=== PATIENT | male | born 1935 | race Caucasian/White ===

== ENCOUNTER 2017-03-04 16:40 | Observation (INO) | payer MEDICARE ==
[2017-03-04 19:23] LABS: Hematocrit 23 % (42-52); Mean Corpuscular HGB Conc 31 g/dl (31-36); Mean Corpuscular Hemoglobin 23 pg (27-31); Mean Corpuscular Volume 75 fL (80-94); Mean Platelet Volume 8 um3 (7.4-10.4); Red Blood Count 3.01 10^6/ul (4.0-5.4); Red Cell Distribution Width 19 % (10.5-15); White Blood Count 8.5 10^3/ul (3.5-10.8)
[2017-03-04 19:24] LABS: Add Diff/Slide Review? Slide Review Added; Comments Flag Yes
[2017-03-04 19:35] LABS: Albumin 3.5 g/dL (3.2-5.2); BUN/Creatinine Ratio 22.8 (8-20); Calcium 8.7 mg/dL (8.6-10.3); EGFR African American 25.6 (>60); EGFR Non-African American 19.9 (>60); Globulin 3.9 g/dL (2-4); Potassium 3.4 mmol/L (3.5-5.0); Total Bilirubin 0.5 mg/dL (0.2-1.0); Total Protein 7.4 g/dL (6.4-8.9)
--- NOTE | 2017-03-04 21:02 | ED ---
Otto Pace Claudia, scribed for Bruce Dunham MD on 03/04/17 at 2050 . Complex/Multi-Sys Presentation - HPI Summary HPI Summary: 81 year old male presents to the ED after being referred after blood test taken this am. Pt and family state that the pt went this am around 10am for a routine blood test due to his recent placement on Warfarin. Pt states that the pt was originally on warfarin due to stroke but it caused him to suffer a bleed. Dr. Gambino then took the pt off of warfarin. However, Dr. Gambino stated that it was easier to put in back on with concerns for another CVA. Pt daughter notes that last week him hemoglobin levels were about 8.0 but today they were measured at 7.3. Pt notes that the pt has been having some weakness. The pt states he has been having some darker stool but attributed that to his iron supplement. Pt notes that he has been being monitored with routine blood tests at [facility]. - History Of Current Complaint Chief Complaint: EDGeneral Time Seen by Provider: 03/04/17 20:49 Hx Obtained From: Patient Onset/Duration: Sudden Onset Associated Signs And Symptoms: Positive: Weakness, Other - dark stool - Allergies/Home Medications Allergies/Adverse Reactions: Allergies Allergy/AdvReac Type Severity Reaction Status Date / Time No Known Allergies Allergy Verified 08/06/16 09:38 PMH/Surg Hx/FS Hx/Imm Hx Previously Healthy: Yes Endocrine/Hematology History: Reports: Hx Diabetes - DM II, Hx Anemia Denies: Hx Anticoagulant Therapy, Hx Blood Disorders, Hx Blood Transfusions, Hx Bone Marrow Disease, Hx Systemic Lupus Erythematosus, Hx Sickle Cell Disease , Hx Thyroid Disease, Hx Unexplained Bleeding, Other Endocrine/Hematological Disorders Cardiovascular History: Reports: Hx Hypertension Denies: Hx Aneurysm, Hx Angina, Hx Angioplasty, Hx Auto Implanted Cardiovert Defib, Hx Cardiac Arrest, Hx Cardiomegaly, Hx Congenital Heart Disease, Hx Congestive Heart Failure, Hx Coronary Artery Disease, Hx Deep Vein Thrombosis, Hx Embolism, Hx Hypercholesterolemia, Hx Hypotension, Hx Myocardial Infarction, Hx Pacemaker/ICD, Hx Peripheral Vascular Disease, Hx Rheumatic Fever, Hx Syncope , Hx Valvular Heart Disease, Other Cardiovascular Problems/Disorders Respiratory History: Denies: Hx Asthma GI History: Reports: Hx Gastroesophageal Reflux Disease, Hx Gastrointestinal Bleed - ULCER, Hx Ulcer - ULCER Denies: Hx Cirrhosis, Hx Crohn's Disease, Hx Diverticulosis, Hx Gall Bladder Disease, Hx Hiatal Hernia, Hx Irritable Bowel, Hx Jaundice, Hx Obstructive Bowel , Hx Ileostomy, Hx Pyloric Stenosis, Other GI Disorders History: Denies: Hx Renal Disease Musculoskeletal History: Reports: Hx Arthritis, Hx Back Problems, Other Musculoskeletal History - knee pain Denies: Hx Bursitis, Hx Congenital Bone Abnormalities, Hx Fibromyalgia, Hx Gout, Hx Orthopedic Injury, Hx Osteoporosis, Hx Scoliosis, Hx Tendonitis Sensory History: Reports: Hx Contacts or Glasses Denies: Hx Cataracts, Hx Eye Injury, Hx Eye Prosthesis, Hx Glaucoma, Hx Legally Blind, Hx Macular Degeneration, Hx Vision Problem, Hx Deafness, Hx Hearing Aid, Hx Hearing Problem, Other Sensory Impairments Opthamlomology History: Reports: Hx Contacts or Glasses Denies: Hx Cataracts, Hx Eye Injury, Hx Eye Prosthesis, Hx Glaucoma, Hx Legally Blind, Hx Macular Degeneration, Hx Vision Problem, Other Sensory Impairments Neurological History: Reports: Hx CVA - 08/02/2015, Other Neuro Impairments/ Disorders - recent onset weakness Denies: Hx Dementia, Hx Developmental Delay, Hx Headaches, Hx Migraine, Hx Nerve Disease, Hx Seizures, Hx Spinal Cord Injury, Hx Transient Ischemic Attacks (TIA) Psychiatric History: Denies: Hx Anxiety, Hx Attention Deficit Hyperactivity Disorder, Hx Eating Disorder, Hx Depression, Hx Panic Disorder, Hx Post Traumatic Stress Disorder, Hx Inpatient Treatment, Hx Community Mental Health Tx, Hx Schizophrenia, Hx Bipolar Disorder, Hx Suicide Attempt, Hx of Violent Episodes Against Others, Hx Substance Abuse, Other Psychiatric Issues/Disorders - Surgical History Surgery Procedure, Year, and Place: CATARACTS; knee, foot surgery during childhood Hx Anesthesia Reactions: No Infectious Disease History: Denies: Hx Hepatitis, Traveled Outside the [place] in Last 30 Days - Family History Known Family History: Positive: None Family History: R & n/C - Social History Occupation: Retired Lives: With Family Alcohol Use: None Substance Use Type: Reports: Other Substance Use Comment - Amount & Last Used: chewing tobacco Hx Tobacco Use: No Smoking Status (MU): Never Smoked Tobacco Review of Systems Constitutional: Negative Eyes: Negative ENT: Negative Cardiovascular: Negative Respiratory: Negative Positive: Other - dark stool Genitourinary: Negative Musculoskeletal: Negative Skin: Negative Positive: Weakness Psychological: Normal All Other Systems Reviewed And Are Negative: Yes Physical Exam Triage Information Reviewed: Yes Vital Signs On Initial Exam: Initial Vitals Temp Pulse Resp BP Pulse Ox 97.6 F 67 17 133/68 99 03/04/17 17:03 03/04/17 17:03 03/04/17 17:03 03/04/17 17:03 03/04/17 17:03 Vital Signs Reviewed: Yes Appearance: Positive: Well-Appearing, No Pain Distress Skin: Positive: Warm, Pale Head/Face: Positive: Normal Head/Face Inspection Eyes: Positive: CHRISTINA, Conjunctiva Clear ENT: Positive: Hearing grossly normal Neck: Positive: Supple Respiratory/Lung Sounds: Positive: Clear to Auscultation, Breath Sounds Present Cardiovascular: Positive: RRR Abdomen Description: Positive: Nontender, Soft Bowel Sounds: Positive: Present Musculoskeletal: Positive: Strength/ROM Intact Neurological: Positive: Sensory/Motor Intact, Alert, Oriented to Person Place, Time Diagnostics - Vital Signs Vital Signs Temp Pulse Resp BP Pulse Ox 03/04/17 17:03 97.6 F 67 17 133/68 99 - Laboratory Lab Results: Lab Results 03/04/17 03/04/17 03/04/17 Range/Units 17:17 17:17 17:17 WBC 8.5 (3.5-10.8) 10^3/ul RBC 3.01 L (4.0-5.4) 10^6/ul Hgb 7.0 L (14.0-18.0) g/dl Hct 23 L (42-52) % MCV 75 L (80-94) fL MCH 23 L (27-31) pg MCHC 31 (31-36) g/dl RDW 19 H (10.5-15) % Plt Count 241 (150-450) 10^3/ul MPV 8 (7.4-10.4) um3 Neut % (Auto) 82.5 (38-83) % Lymph % (Auto) 7.2 L (25-47) % Mathews % (Auto) 7.8 (1-9) % Eos % (Auto) 1.5 (0-6) % Baso % (Auto) 1.0 (0-2) % Absolute Neuts (auto) 7.0 (1.5-7.7) 10^3/ul Absolute Lymphs (auto) 0.6 L (1.0-4.8) 10^3/ul Absolute Monos (auto) 0.7 (0-0.8) 10^3/ul Absolute Eos (auto) 0.1 (0-0.6) 10^3/ul Absolute Basos (auto) 0.1 (0-0.2) 10^3/ul Absolute Nucleated RBC 0 10^3/ul Nucleated RBC % 0 INR (Anticoag Therapy) 1.65 H (0.89-1.11) Sodium 136 (133-145) mmol/L Potassium 3.4 L (3.5-5.0) mmol/L Chloride 95 L (101-111) mmol/L Carbon Dioxide 32 (22-32) mmol/L Anion Gap 9 (2-11) mmol/L BUN 69 H (6-24) mg/dL Creatinine 3.02 H (0.67-1.17) mg/dL Est GFR ( Amer) 25.6 (>60) Est GFR (Non-Af Amer) 19.9 (>60) BUN/Creatinine Ratio 22.8 H (8-20) Glucose 128 H (70-100) mg/dL Calcium 8.7 (8.6-10.3) mg/dL Total Bilirubin 0.50 (0.2-1.0) mg/dL AST 18 (13-39) U/L ALT 9 (7-52) U/L Alkaline Phosphatase 119 H (34-104) U/L Total Protein 7.4 (6.4-8.9) g/dL Albumin 3.5 (3.2-5.2) g/dL Globulin 3.9 (2-4) g/dL Albumin/Globulin Ratio 0.9 L (1-3) Result Diagrams: 03/04/17 17:17 03/04/17 17:17 Lab Statement: Any lab studies that have been ordered have been reviewed, and results considered in the medical decision making process. - EKG 2150 EKG Rhythm: Atrial Fibrillation - 69 beats/min EKG Interpretation: moderate ventricular response Re-Evaluation - Re-Evaluation 1 Re-Evaluation Time: 22:02 Comment: Discussed the lab work with the pt and family. Complex Multi-Symp Course/Dx Assessment/Plan: MDM: After EKG and blood work results displaying Hemoglobin of 7.0 pt will be [place] [facility] [place]. - Diagnoses Provider Diagnoses: Anemia - Physician Notifications Discussed Care Of Patient With: Discussed care of pt with Dr. Galloway - Dr. Galloway will admit [place] [facility] [id number] Time Discussed With Above Provider: 22:03 Instructed by Provider To: Admit As Inpatient Discharge - Discharge Plan Condition: Fair Disposition: ADMITTED TO [facility] documentation as recorded by the Otto walker Claudia accurately reflects the service I personally performed and the decisions made by me, Bruce Dunham MD.
[2017-03-05] MEDS: NS 0.9% 1000 ML* 1,000 ML IV SCH ×2 (06:41→19:10)
[2017-03-05] MEDS: Pantoprazole IV* 80 MG in NS 0.9% 250 ML* 250 ML IVPB SCH ×2 (06:41→17:45)
--- NOTE | 2017-03-05 07:51 | HP ---
CC: EMILY Ayon* HISTORY AND PHYSICAL: DATE OF ADMISSION: 03/05/17 PRIMARY CARE PROVIDER: EMILY Ayon CHIEF COMPLAINT: Weakness. HISTORY OF PRESENT ILLNESS: The patient is an 81-year-old gentleman who presents to the [facility] with a chief complaint of weakness. It started approximately 1 week ago. He denies any chest pain or shortness of breath. He denies any lightheadedness. His appetite has been good. He does note his bowel movements have been black, but he says he thought it was due to the iron he takes. He denies taking any aspirin. He denies taking any Advil, Motrin, or Aleve. Interestingly, he had a similar presentation last year, but apparently he had taken aspirin at that time, which was thought to be responsible for his GI bleed. In the ER, the patient was found to have an elevated BUN of 69 and hemoglobin of 7. PAST MEDICAL HISTORY: Significant for CVA, hypertension, atrial fibrillation, diabetes, carotid stenosis, and hyperlipidemia. PAST SURGICAL HISTORY: Significant for carotid endarterectomy that was complicated by postoperative hematoma, which required evacuation and a cataract extraction. MEDICATIONS: He does not know his current medications. They have to be obtained from his PCP or his . ALLERGIES: He has no known drug allergies. FAMILY HISTORY: Father with colon cancer. SOCIAL HISTORY: No tobacco, no alcohol or recreational drug use. He is . His is his healthcare proxy. REVIEW OF SYSTEMS: A 14-point review of systems is completed with the patient. All pertinent positives and negatives are in the history of present illness, otherwise it is negative. PHYSICAL EXAMINATION GENERAL: A pleasant gentleman lying in bed, in no acute distress. VITAL SIGNS: Blood pressure 116/51, pulse oxygenation 92% on 2 L, respiratory rate 16 breaths per minute, heart rate 48 beats per minute, temperature 97.2 degrees. HEENT: Normocephalic and atraumatic. Pupils are equal, round and reactive to light. He has got moist mucous membranes. NECK: Supple. No JVD, bruits, palpable thyroid or lymphadenopathy. CHEST: Clear to auscultation. CARDIOVASCULAR: S1, S2 appreciated. ABDOMEN: Positive bowel sounds in all 4 quadrants. Soft, nontender, and nondistended. EXTREMITIES: No cyanosis or clubbing. +2 peripheral pulses bilaterally. NEUROLOGIC: Alert and oriented x3. Moves all extremities. SKIN: No rashes or abnormalities. LABORATORY DATA: White count 8.5, hemoglobin 7.0, hematocrit 23, platelets 241. Sodium 136, potassium 3.4, chloride 95, CO2 32, BUN 69, creatinine 3.02, glucose is 128. INR 1.65. EKG shows atrial fibrillation with a rate of 69 beats per minute, low voltage, no acute ST-T wave changes. ASSESSMENT AND PLAN: 1. Gastrointestinal bleed, likely upper. We will transfuse 2 units of packed red blood cells. GI consult in the a.m. Please patient on Protonix drip. 2. Chronic kidney disease. He is approximately where he has been in the past. We will monitor closely. 3. Atrial fibrillation. His INR is somewhat elevated and he apparently is on Coumadin, but we will get the exact dosing from his PCP. Hold off on reversing now until we see how much he is actually bleeding. 4. History of cerebrovascular accident. Continue current medications when we get them, but again hold aspirin if he is taking that. 5. Hypertension. BP adequately controlled. Continue to monitor. Use medications as necessary. 6. Diabetes mellitus. Place him on fingersticks with sliding scale insulin. 7. DVT prophylaxis. SCDs. The patient is currently n.p.o. 8. The patient is a full code. TIME SPENT: Over 75 minutes were spent on this H and P, more than 40 minutes of which is spent in direct [id number] contact with the patient in evaluation , physical exam, counseling, and coordination of care. [id number]/[facility] #: [id number] JUDI
[2017-03-05 08:56] LABS: Hematocrit 26 % (42-52); Hemoglobin 8.2 g/dl (14.0-18.0)
[2017-03-05] MEDS ORDERED: Potassium Chlor TAB* 20 MEQ TAB.ER PO ONE (10:21)
--- NOTE | 2017-03-05 11:09 | PN ---
Subjective Date of Service: 03/05/17 Interval History: Pt is feeling well. He states he still feels slightly weak but he has not been up and walking. He denies any abdominal pain. No SOB. Objective Active Medications: Sodium Chloride (Ns 0.9% 1000 Ml*) 1,000 mls @ 100 mls/hr IV PER RATE [facility] Last Admin: 03/05/17 06:41 Dose: 100 mls/hr Pantoprazole Sodium 80 mg/ (Sodium Chloride) 250 mls @ 25 mls/hr IVPB Q10H [facility] Last Admin: 03/05/17 06:41 Dose: 25 mls/hr Vital Signs 03/05/17 03/05/17 03/05/17 05:00 05:24 05:25 Temperature 97.2 F Pulse Rate 48 43 50 Respiratory 15 10 16 Rate Blood Pressure 126/62 112/42 112/42 (mmHg) O2 Sat by Pulse 92 100 100 Oximetry 03/05/17 03/05/17 03/05/17 05:30 06:05 07:46 Temperature 97.3 F 97.4 F Pulse Rate 49 85 52 Respiratory 14 17 18 Rate Blood Pressure 125/55 93/60 122/68 (mmHg) O2 Sat by Pulse 100 96 92 Oximetry Oxygen Devices in Use Now: None Appearance: Elderly male sitting up in bed, NAD Eyes: No Scleral Icterus Ears/Nose/Mouth/Throat: Mucous Membranes Moist Respiratory: Symmetrical Chest Expansion and Respiratory Effort, Clear to Auscultation Cardiovascular: NL Sounds; No Murmurs; No JVD, RRR - afib on tele, - - trace LE edema Abdominal: NL Sounds; No Tenderness; No Distention Extremities: No Clubbing, Cyanosis Skin: No Rash or Ulcers, No Nodules or Sclerosis Neurological: Alert and Oriented x 3 Result Diagrams: 03/05/17 08:34 03/04/17 17:17 Additional Lab and Data: Lab Results 03/04/17 03/04/17 03/04/17 Range/Units 17:17 17:17 17:17 WBC 8.5 (3.5-10.8) 10^3/ul RBC 3.01 L (4.0-5.4) 10^6/ul Hgb 7.0 L (14.0-18.0) g/dl Hct 23 L (42-52) % MCV 75 L (80-94) fL MCH 23 L (27-31) pg MCHC 31 (31-36) g/dl RDW 19 H (10.5-15) % Plt Count 241 (150-450) 10^3/ul MPV 8 (7.4-10.4) um3 Neut % (Auto) 82.5 (38-83) % Lymph % (Auto) 7.2 L (25-47) % Harvey % (Auto) 7.8 (1-9) % Eos % (Auto) 1.5 (0-6) % Baso % (Auto) 1.0 (0-2) % Absolute Neuts (auto) 7.0 (1.5-7.7) 10^3/ul Absolute Lymphs (auto) 0.6 L (1.0-4.8) 10^3/ul Absolute Monos (auto) 0.7 (0-0.8) 10^3/ul Absolute Eos (auto) 0.1 (0-0.6) 10^3/ul Absolute Basos (auto) 0.1 (0-0.2) 10^3/ul Absolute Nucleated RBC 0 10^3/ul Nucleated RBC % 0 INR (Anticoag Therapy) 1.65 H (0.89-1.11) Sodium 136 (133-145) mmol/L Potassium 3.4 L (3.5-5.0) mmol/L Chloride 95 L (101-111) mmol/L Carbon Dioxide 32 (22-32) mmol/L Anion Gap 9 (2-11) mmol/L BUN 69 H (6-24) mg/dL Creatinine 3.02 H (0.67-1.17) mg/dL Est GFR ( Amer) 25.6 (>60) Est GFR (Non-Af Amer) 19.9 (>60) BUN/Creatinine Ratio 22.8 H (8-20) Glucose 128 H (70-100) mg/dL Calcium 8.7 (8.6-10.3) mg/dL Total Bilirubin 0.50 (0.2-1.0) mg/dL AST 18 (13-39) U/L ALT 9 (7-52) U/L Alkaline Phosphatase 119 H (34-104) U/L Total Protein 7.4 (6.4-8.9) g/dL Albumin 3.5 (3.2-5.2) g/dL Globulin 3.9 (2-4) g/dL Albumin/Globulin Ratio 0.9 L (1-3) Assess/Plan/Problems-Billing Mr Moctezuma is an 81 yo M who has a h/o afib on coumadin, past CVA, HTN, DM and HLD who presented to the ER with c/o weakness and was found to be anemic with a Hb of 7. - Patient Problems (1) Upper GI bleed Current Visit: Yes Status: Acute Code(s): K92.2 - GASTROINTESTINAL HEMORRHAGE, UNSPECIFIED SNOMED Code(s): 62402904 Comment: H/H improved with 2 units PRBC. I suspect the patient bled due to being back on coumadin. Continue protonix drip for now. Hold coumadin. GI consult requested. No BMs since being in the hospital. (2) Atrial fibrillation Current Visit: Yes Status: Acute Onset Date: 08/02/15 Code(s): I48.91 - UNSPECIFIED ATRIAL FIBRILLATION SNOMED Code(s): 23156706 Comment: HR is controlled. He has been restarted on coumadin over the last couple months. I suspect this is why he started bleeding. Obviously hold coumadin for now. (3) CKD (chronic kidney disease) stage 4, GFR 15-29 ml/min Current Visit: Yes Status: Acute Code(s): N18.4 - CHRONIC KIDNEY DISEASE, STAGE 4 (SEVERE) SNOMED Code(s): 071964085 Comment: Creatinine is slightly up from his baseline but not too far off. Continue to monitor. Holding lasix for now. (4) HTN (hypertension) Current Visit: Yes Status: Acute Code(s): I10 - ESSENTIAL (PRIMARY) HYPERTENSION SNOMED Code(s): 46521164 Comment: BP is under good control. Continue metoprolol but hold amlodipine for now. (5) Hyperlipidemia Current Visit: Yes Status: Chronic Code(s): E78.5 - HYPERLIPIDEMIA, UNSPECIFIED SNOMED Code(s): 33494694 Comment: Continue statin. (6) Diabetes Current Visit: Yes Status: Acute Code(s): E11.9 - TYPE 2 DIABETES MELLITUS WITHOUT COMPLICATIONS SNOMED Code(s): 45235587 Comment: He is diet controlled. Start lispro sliding scale. (7) DVT prophylaxis Current Visit: Yes Status: Acute Code(s): TCE4167 - SNOMED Code(s): 965827966 Comment: SCDs (8) Full code status Current Visit: Yes Status: Acute Code(s): Z78.9 - OTHER SPECIFIED HEALTH STATUS SNOMED Code(s): 253221852
[2017-03-05] MEDS ORDERED: Dextrose 50% Syringe 50 ML* 25 GM/50 ML SYRINGE IV PUSH PRN (11:16)
[2017-03-05] MEDS: Insulin LISPRO* 1 UNITS UNIT SUBCUT SCH ×2 (11:51→16:45)
[2017-03-05] MEDS ORDERED: Midazolam* 1 MG/ML 5 ML VIAL (5 MG) ONE (13:53)
[2017-03-05] MEDS ORDERED: fentaNYL* 50 MCG/ML 2 ML VIAL (100 MCG VIAL) ONE (13:53)
--- NOTE | 2017-03-05 14:08 | CONS ---
CC: EMILY Ayon. * CONSULTATION REPORT: DATE OF ADMISSION: 03/05/2017. REQUESTING PHYSICIAN: Dr. Klein. INDICATION: Dark and tarry stools, anemia. NARRATIVE: Mr. Moctezuma is a very pleasant 81-year-old gentleman who has a history of atrial fibrillation and upper gastrointestinal bleeding. I did interview both the patient, his , and their daughter, and they all say that he had been doing well up until when he restarted his Coumadin. His noted that since starting the Coumadin, he has become more more weak and fatigued. He did see his primary care physician and had a hemoglobin checked, which was low and they referred him to the emergency room. The patient also states he has been having very dark and tarry stools. They initially thought it was secondary to the iron that he has been taking. He states that this is similar to an episode that he had in July. At that time, he had an endoscopy, which revealed gastritis and duodenal AVMs. GI and Cardiology discussed restarting the Coumadin and felt that it was safer to restart the Coumadin to prevent any strokes. The patient denies any abdominal pain. He states that he is doing well other than being weak. PAST MEDICAL HISTORY: Significant for CVA, hypertension, AFib, diabetes, and hyperlipidemia. PAST SURGICAL HISTORY: Carotid endarterectomy and cataract surgery. MEDICATIONS: Include, 1. Lasix. 2. Amlodipine. 3. Zoloft. 4. Metoprolol. 5. Omeprazole. 6. Crestor. ALLERGIES: He has no known drug allergies. REVIEW OF SYSTEMS: Twelve systems were reviewed, other than that mentioned in the HPI were unremarkable. PHYSICAL EXAMINATION: Temperature is 97.4, blood pressure 125/64, pulse is 79. General: Well-appearing elderly male appears slightly older than stated age. Alert and oriented, pleasant and fluent. HEENT: Mucous membranes are moist without lesions, ulcers, or exudate. Head is normocephalic and atraumatic. Neck is supple, trachea is midline. Heart: Irregular rate and rhythm. Lungs: Clear to auscultation. Abdomen: Obese. Positive bowel sounds. Soft. Nontender. Nondistended. No hepatosplenomegaly, masses, rebound, or guarding. Skin is warm and dry. LABORATORY DATA: Hemoglobin went from 7 to 8.2, INR 1.65, BUN 69, creatinine 3.02. 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 He likely is experiencing another upper gastrointestinal bleed, likely it has been precipitated by his restarting the Coumadin. At this point, he does need an upper GI to confirm any new findings. His Coumadin is being held. He is being given IV Protonix. He has 2 large-bore IVs. I will plan for EGD later on today. [id number]/[facility] #: [id number] [facility]
[2017-03-05 16:10] LABS: Hematocrit 26 % (42-52); Hemoglobin 8.2 g/dl (14.0-18.0)
[2017-03-05 20:00] LABS: Hematocrit 28 % (42-52); Hemoglobin 8.7 g/dl (14.0-18.0)
[2017-03-05] MEDS: Metoprolol Tartrate TAB* 25 MG PO SCH (20:21)
[2017-03-05] MEDS ORDERED: CMC: Rosuvastatin (NF) 20 MG TAB PO SCH (21:00)
--- NOTE | 2017-03-06 00:54 | PRO ---
CC: Dr. Gambino; Flor Rondon, TEST CASE DEVELOPER-C* DATE OF PROCEDURE: 03/05/17 - ROOM #436 PROCEDURE: EGD. INDICATION: Anemia, history of gastric erosions and AVMs in the past. REFERRING PHYSICIAN: Arminda Klein DO. MEDICATIONS GIVEN: No Demerol, 5 mg IV Versed. DESCRIPTION OF PROCEDURE: After the EGD procedures including the risk benefits and alternatives not limited to perforation, surgery and/or were explained to Mr. Moctezuma, written consent was then obtained, IV medication was given, and a bite block was placed between the teeth. An Olympus gastroscope was then inserted into the patient's mouth and advanced down the esophagus, into the stomach, into the distal duodenum. In the esophagus, at the GE junction, the Z-line was intact. No erosive esophagitis, stricture, or ring was seen. Scope was advanced through a widely patent GE junction into the body of the stomach. Retroflex views were unremarkable. Forward views did reveal gastritis with one small erosion and small AVMs. None of these were bleeding at all. The scope was advanced through the pylorus into the duodenal bulb. It was unremarkable and the distal duodenum also was unremarkable. The scope was then withdrawn from the patient. He tolerated the procedure well, was returned to the recovery room in stable condition. IMPRESSION: 1. Complete upper endoscopy into the distal duodenum. 2. Pretty much the same findings as last July, which were gastritis and AVMs, none of which were bleeding. 3. I have to think that the Coumadin is causing these GI findings to bleed. He has been on a PPI. I think at this point, he would be better served by refraining from Coumadin. He needs to discuss this with his rehabilitation services director, who he has an appointment with in a couple of weeks from now according to his . [id number]/[facility] #: [id number] JUDI
[2017-03-06 02:22] LABS: Hematocrit 26 % (42-52); Hemoglobin 7.9 g/dl (14.0-18.0)
[2017-03-06 02:24] LABS: Comments Flag Yes
[2017-03-06] MEDS: Insulin LISPRO* 1 UNITS UNIT SUBCUT SCH ×2 (08:37→11:38)
[2017-03-06] MEDS: Metoprolol Tartrate TAB* 25 MG PO SCH (08:37)
[2017-03-06 08:57] LABS: Hematocrit 27 % (42-52); Hemoglobin 8.6 g/dl (14.0-18.0)
[2017-03-06] MEDS ORDERED: Sertraline* 50 MG TAB PO SCH (09:00)
[2017-03-06] MEDS ORDERED: Omeprazole CAP* 20 MG PO SCH (09:00)
[2017-03-06 11:38] VITALS: BP 129/73
--- NOTE | 2017-03-06 19:12 | DS ---
CC: EMILY Ayon * DISCHARGE SUMMARY: DATE OF ADMISSION: 03/05/17 DATE OF DISCHARGE: 03/06/17 PRIMARY CARE PROVIDER: EMILY Ayon PRINCIPAL DIAGNOSIS: Upper GI bleed secondary to gastritis and arteriovenous malformations in the setting of being on Coumadin. SECONDARY DIAGNOSES: 1. Diet controlled type 2 diabetes. 2. Hyperlipidemia. 3. Depression. 4. Atrial fibrillation. 5. Hypertension. DISCHARGE MEDICATIONS: 1. Zoloft 75 mg p.o. daily. 2. Crestor 40 mg p.o. q.h.s. 3. Psyllium 1 packet p.o. daily. 4. Potassium chloride 10 mEq p.o. daily. 5. Omeprazole 20 mg p.o. b.i.d. 6. Metoprolol tartrate 25 mg p.o. b.i.d. 7. Calmoseptine apply topical t.i.d. 8. Lasix 80 mg p.o. daily. 9. Ferrous sulfate 325 mg p.o. b.i.d. 10. Amlodipine 2.5 mg p.o. daily. HOSPITAL COURSE: Mr. Moctezuma is an 81-year-old male who presented to the emergency room on 03/04/17 with complaints of weakness. The patient did note that he had been having black stools but attributed this to iron. In the ER, the patient was found to have an elevated BUN and hemoglobin of 7, and was admitted for a presumed upper GI bleed. The patient was started on a Protonix drip. A GI consultation was requested for EGD. Dr. Garcia took the patient to the endoscopy suite on 03/05/17 for EGD. At the time of his EGD, gastritis and AVMs were noted. None of these were bleeding. It was felt that the Coumadin was likely the cause of the GI bleed. It was recommended that he be off Coumadin. The patient's states that she does not want him going back on this medication and they accept that he is at high risk for stroke given his atrial fibrillation. The patient did receive 2 units of packed red blood cells for his low hemoglobin. His hemoglobin is up to 8.6 on the day of discharge. At this point, the patient is feeling better. He has been able to ambulate his usual distance without any difficulty. He is felt to be stable for discharge home today. On the day of discharge, the patient is awake, alert and oriented, sitting up in bed, in no acute distress. His vital signs are stable. His cardiac exam reveals a normal S1 and S2, irregularly irregular rhythm, though a controlled rate. He has no lower extremity edema. His lung exam reveals clear lungs bilaterally. His abdomen is soft, nontender, nondistended. Bowel sounds are present. The patient was alert and oriented x3 at the time of my evaluation. At this point, the patient is stable for discharge home. FOLLOWUP CONCERNS: The patient is being discharged home today, 03/06/17. ACTIVITY LEVEL: As tolerated. DIET: Regular. CONDITION ON DISCHARGE: Stable. FOLLOWUP: The patient should follow up with EMILY Ayon in the next 4 to 7 days. TIME SPENT: Thirty five minutes was spent discharging this patient. [id number]/CPS #: [id number] MTDD
== END 2017-03-06 15:48 | disposition home or self-care (01) ==
LOC: ED 16:40 → INTOOBSV 03-05 04:42 → MEDTELE 03-05 04:42
PROVIDERS: ADMIT Internal Medicine; ATTEND Hospitalist
PROC: 0DJ08ZZ Inspection of Upper Intestinal Tract, Via Natural or Artificial Opening Endoscopic (ICD-10-PCS; principal; 2017-03-05)
DX: K92.2 Gastrointestinal hemorrhage, unspecified (principal); K29.70 Gastritis, unspecified, without bleeding; Q27.33 Arteriovenous malformation of digestive system vessel; E11.9 Type 2 diabetes mellitus without complications; I48.91 Unspecified atrial fibrillation; Z79.01 Long term (current) use of anticoagulants; E78.5 Hyperlipidemia, unspecified; I12.9 Hypertensive chronic kidney disease with stage 1 through stage 4 chronic kidney disease, or unspecified chronic kidney disease; N18.4 Chronic kidney disease, stage 4 (severe); D64.9 Anemia, unspecified; F32.9 Major depressive disorder, single episode, unspecified; Z79.899 Other long term (current) drug therapy; Z86.73 Personal history of transient ischemic attack (TIA), and cerebral infarction without residual deficits; I45.81 Long QT syndrome; R19.5 Other fecal abnormalities
CPT/HCPCS: 36415; 80053; 82270; 85014; 85018; 85025; 85610; 86850; 86900; 86901; 86922; 93005; 96374; 99285; A9270-GY; G0378; J2250; J3010; P9040

== ENCOUNTER 2017-05-27 16:24 | Inpatient (IN) | payer MEDICARE ==
[2017-05-27 17:23] LABS: Hematocrit 23 % (42-52); Hemoglobin 7.4 g/dl (14.0-18.0); Mean Corpuscular HGB Conc 32 g/dl (31-36); Mean Corpuscular Hemoglobin 25 pg (27-31); Mean Corpuscular Volume 76 fL (80-94); Mean Platelet Volume 7 um3 (7.4-10.4); Red Blood Count 3.01 10^6/ul (4.0-5.4); Red Cell Distribution Width 20 % (10.5-15); White Blood Count 8.9 10^3/ul (3.5-10.8)
[2017-05-27 17:37] LABS: Albumin 3.4 g/dL (3.2-5.2); BUN/Creatinine Ratio 17.7 (8-20); C Reactive Protein 43.66 mg/L (< 5.00); Calcium 8.6 mg/dL (8.6-10.3); EGFR African American 27.1 (>60); EGFR Non-African American 21.1 (>60); Globulin 4.1 g/dL (2-4); Magnesium 2.3 mg/dL (1.9-2.7); Potassium 3.8 mmol/L (3.5-5.0); Total Bilirubin 0.6 mg/dL (0.2-1.0); Total Protein 7.5 g/dL (6.4-8.9)
[2017-05-27 18:51] LABS: Ferritin 75.3 ng/mL (24-336)
--- NOTE | 2017-05-27 19:05 | ADMNOTE ---
Subjective Date of Service: 05/27/17 Interval History: ADMISSION HISTORY AND PHYSICAL EXAM: Allergies Allergy/AdvReac Type Severity Reaction Status Date / Time No Known Allergies Allergy Verified 08/06/16 09:38 Home Medications Medication Instructions Recorded Confirmed Type Ferrous Sulfate [Fe Tabs] 325 mg PO BID 03/05/17 05/27/17 History Furosemide TAB* [Lasix TAB*] 80 mg PO DAILY 03/05/17 05/27/17 History Metoprolol Tartrate TAB* 25 mg PO BID 03/05/17 05/27/17 History [Lopressor TAB*] Omeprazole CAP* [Prilosec CAP* 20 20 mg PO BID 03/05/17 05/27/17 History MG] Potassium Chlor TAB* [Klor Con ER 10 meq PO DAILY 03/05/17 05/27/17 History TAB 10 MEQ*] Psyllium OPAL* [Metamucil OPAL*] 1 pkt PO DAILY 03/05/17 05/27/17 History Menthol-Zinc Oxide [Calmoseptine] 1 oin TOPICAL BID 05/27/17 05/27/17 History Rosuvastatin (NF) [Crestor (NF)] 40 mg PO BEDTIME 05/27/17 05/27/17 History Sertraline* [Zoloft*] 75 mg PO DAILY 05/27/17 05/27/17 History amLODIPine TAB* [Norvasc 5 mg TAB*] 2.5 mg PO DAILY 05/27/17 05/27/17 History HPI: (History mainly obtained from patient's ) Patient weighs himself daily. He has gained 16 pounds in the past 2 weeks. He has more STANLEY. He sleeps every night in a recliner chair with his head partly up. No chest pain, cough, F/C. Family History: Findings - Father had colon ca Social History: Findings - Never smoked. No alcohol abuse. Lives with his who is his SDM. Past Medical History: Findings - CVA, atrial fib, CEA, cataract surgery, HL, HTN , DM on diet only Review of Systems - Measurements Intake and Output: Intake and Output Last 24 Hours 05/25/17 05/26/17 05/27/17 05/28/17 06:59 06:59 06:59 06:59 Weight 217 lb - Review of Systems Constitutional Symptoms: Positive: Weight Gain Dermatology: Positive: Rash - uses heating device on shoulders every day HEENT: Positive: Normal Eyes: Positive: Normal Thyroid: Positive: Normal Pulmonary: Positive: Exercise Intolerance Cardiology: Positive: Swelling of Ankles Gastroenterology: Positive: Normal Genital - Urinary: Positive: Normal Musculoskeletal: Negative: Joint Pain, Joint Stiffness, Arthritis, Osteoporosis, Low Back Pain , Sciatica, Joint Deformities, Kyphoscoliosis, Other Endocrinology: Positive: Diabetes Mellitus Hematologic/Lymphatic: Positive: Anemia Neurology: Positive: Normal Psychiatry: Positive: Normal Allergic/Immunologic: Negative: Hx Anaphylaxis, Hx Angioedema, Hx Environmental, Hx Seasonal, Athsma, Hx HIV, Immunocompromise, Swollen Glands LymphNodes, Other Objective Active Medications: Amlodipine Besylate (Norvasc Tab*) 2.5 mg PO DAILY JESENIA Furosemide (Lasix Iv*) 40 mg IV Q4H JESENIA Stop: 05/28/17 01:00 Metoprolol Tartrate (Lopressor Tab*) 25 mg PO BID JESENIA Non-Formulary Medication (Ferrous Sulfate [Fe Tabs]) 325 mg PO BID JESENIA Omeprazole (Prilosec Cap*) 20 mg PO BID JESENIA Potassium Chloride (Klor Con Er Tab*) 10 meq PO BID JESENIA Psyllium Hydrophilic Mucilloid (Metamucil Opal*) 1 pkt PO DAILY JESENIA Rosuvastatin Calcium (Crestor (Nf)) 40 mg PO BEDTIME JESENIA Sertraline HCl (Zoloft*) 75 mg PO DAILY JESENIA Torsemide (Demadex*) 80 mg PO DAILY [facility] Vital Signs 05/27/17 05/27/17 05/27/17 16:27 16:48 16:50 Temperature 97.4 F Pulse Rate 71 Respiratory 20 17 Rate Blood Pressure 143/128 137/70 (mmHg) O2 Sat by Pulse 97 Oximetry 05/27/17 05/27/17 05/27/17 16:56 17:00 17:07 Temperature 97.8 F Pulse Rate 75 64 63 Respiratory 18 17 18 Rate Blood Pressure 121/70 122/64 122/64 (mmHg) O2 Sat by Pulse 98 97 94 Oximetry 05/27/17 05/27/17 05/27/17 17:30 18:00 18:30 Temperature Pulse Rate 66 61 Respiratory 19 16 18 Rate Blood Pressure 129/68 131/72 150/83 (mmHg) O2 Sat by Pulse 95 95 Oximetry Oxygen Devices in Use Now: None Appearance: Alert, partly up on ED stretcher. In good spirits. Looks comfortable. Eyes: No Scleral Icterus Ears/Nose/Mouth/Throat: Clear Oropharnyx - edentulous, Mucous Membranes Moist Neck: No Thyroid Enlargement, Masses, - - JVD at 30 degrees. Cardiovascular: NL Sounds; No Murmurs; No JVD, RRR, - - 1+ edema BL Abdominal: NL Sounds; No Tenderness; No Distention, No Hepatosplenomegaly, - Extremities: No Clubbing, Cyanosis, - - 1+ edema BL Neurological: Alert and Oriented x 3, NL Sensation Result Diagrams: 05/27/17 17:12 05/27/17 17:12 Additional Lab and Data: Lab Results 05/27/17 05/27/17 05/27/17 Range/Units 17:12 17:12 17:12 WBC 8.9 (3.5-10.8) 10^3/ul RBC 3.01 L (4.0-5.4) 10^6/ul Hgb 7.4 L (14.0-18.0) g/dl Hct 23 L (42-52) % MCV 76 L (80-94) fL MCH 25 L (27-31) pg MCHC 32 (31-36) g/dl RDW 20 H (10.5-15) % Plt Count 250 (150-450) 10^3/ul MPV 7 L (7.4-10.4) um3 Neut % (Auto) 85.2 H (38-83) % Lymph % (Auto) 4.9 L (25-47) % [place] % (Auto) 7.4 (1-9) % Eos % (Auto) 1.3 (0-6) % Baso % (Auto) 1.2 (0-2) % Absolute Neuts (auto) 7.6 (1.5-7.7) 10^3/ul Absolute Lymphs (auto) 0.4 L (1.0-4.8) 10^3/ul Absolute Monos (auto) 0.7 (0-0.8) 10^3/ul Absolute Eos (auto) 0.1 (0-0.6) 10^3/ul Absolute Basos (auto) 0.1 (0-0.2) 10^3/ul Absolute Nucleated RBC 0 10^3/ul Nucleated RBC % 0 INR (Anticoag Therapy) 1.25 H (0.89-1.11) APTT 30.1 (26.0-36.3) seconds Blood Type O Positive Antibody Screen Pending Microbiology and Other Data: Microbiology 05/27/17 17:30 Stool Occult Blood (EVANS) - Final Stool Assess/Plan/Problems-Billing Assessment: - Patient Problems (1) Anemia Current Visit: No Status: Acute Priority: High Code(s): D64.9 - ANEMIA, UNSPECIFIED SNOMED Code(s): 556604036 Comment: Never had definitive ID of GI bleeding source. Continue PO iron. Add on ferritin, FE/TIBC. 2 U PC's. (2) CHF (congestive heart failure) Current Visit: Yes Status: Acute Code(s): I50.9 - HEART FAILURE, UNSPECIFIED SNOMED Code(s): 82671913 Comment: Change to torsemide 80 mg daily (was on furosemide 40 mg bid at home ). Body Liner to instruct pt and on low salt diet. Echo. Addon BNP pending. needs more education on managing CHF. (3) Diabetes Current Visit: No Status: Acute Code(s): E11.9 - TYPE 2 DIABETES MELLITUS WITHOUT COMPLICATIONS SNOMED Code(s): 46393589 Comment: He is diet controlled. FS bid with parameters. (4) CKD (chronic kidney disease) stage 4, GFR 15-29 ml/min Current Visit: No Status: Acute Code(s): N18.4 - CHRONIC KIDNEY DISEASE, STAGE 4 (SEVERE) SNOMED Code(s): 826773878 Comment: At his baseline. Note PVR 0-20 ml by bladder scan. BMP 05/28. (5) HTN (hypertension) Current Visit: No Status: Acute Code(s): I10 - ESSENTIAL (PRIMARY) HYPERTENSION SNOMED Code(s): 77587834 Comment: Continue home doses of metoprolol and amlodipine.
--- NOTE | 2017-05-27 20:06 | ED ---
Joselo Pace Benjamin, scribed for Jaden Irvin MD on 05/27/17 at 1740 . GI/ HPI - HPI Summary HPI Summary: 81yo male who was sent by his PCP for a blood transfusion. Pt sees Dr. Bill and his two scopy showed ulcer. Pt was told that he is not making blood himself , therefore is unable to replace any lost blood on his own. Pt is on Lasix. - History of Current Complaint Chief Complaint: EDGeneral Time Seen by Provider: 05/27/17 17:21 Stated Complaint: ABNORMAL LABS Hx Obtained From: Patient, Family/Intervention Analyst Timing: Constant Current Severity: None Pain Intensity: 0 Associated Signs and Symptoms: Positive: Negative. Negative: Black Tarry Stool , Bright Red Blood w/Stool, Blood w/Stool - Additional Pertinent History Primary Care Physician: JOSH - Allergy/Home Medications Allergies/Adverse Reactions: Allergies Allergy/AdvReac Type Severity Reaction Status Date / Time No Known Allergies Allergy Verified 08/06/16 09:38 PMH/Surg Hx/FS Hx/Imm Hx Endocrine/Hematology History: Reports: Hx Diabetes - DM II, Hx Anemia Denies: Hx Anticoagulant Therapy, Hx Blood Disorders, Hx Blood Transfusions, Hx Bone Marrow Disease, Hx Systemic Lupus Erythematosus, Hx Sickle Cell Disease , Hx Thyroid Disease, Hx Unexplained Bleeding, Other Endocrine/Hematological Disorders Cardiovascular History: Reports: Hx Hypertension Denies: Hx Aneurysm, Hx Angina, Hx Angioplasty, Hx Auto Implanted Cardiovert Defib, Hx Cardiac Arrest, Hx Cardiomegaly, Hx Congenital Heart Disease, Hx Congestive Heart Failure, Hx Coronary Artery Disease, Hx Deep Vein Thrombosis, Hx Embolism, Hx Hypercholesterolemia, Hx Hypotension, Hx Myocardial Infarction, Hx Pacemaker/ICD, Hx Peripheral Vascular Disease, Hx Rheumatic Fever, Hx Syncope , Hx Valvular Heart Disease, Other Cardiovascular Problems/Disorders Respiratory History: Denies: Hx Asthma GI History: Reports: Hx Gastroesophageal Reflux Disease, Hx Gastrointestinal Bleed - ULCER, Hx Ulcer - ULCER Denies: Hx Cirrhosis, Hx Crohn's Disease, Hx Diverticulosis, Hx Gall Bladder Disease, Hx Hiatal Hernia, Hx Irritable Bowel, Hx Jaundice, Hx Obstructive Bowel , Hx Ileostomy, Hx Pyloric Stenosis, Other GI Disorders History: Denies: Hx Renal Disease Musculoskeletal History: Reports: Hx Arthritis, Hx Back Problems, Other Musculoskeletal History - knee pain Denies: Hx Bursitis, Hx Congenital Bone Abnormalities, Hx Fibromyalgia, Hx Gout, Hx Orthopedic Injury, Hx Osteoporosis, Hx Scoliosis, Hx Tendonitis Sensory History: Reports: Hx Contacts or Glasses Denies: Hx Cataracts, Hx Eye Injury, Hx Eye Prosthesis, Hx Glaucoma, Hx Legally Blind, Hx Macular Degeneration, Hx Vision Problem, Hx Deafness, Hx Hearing Aid, Hx Hearing Problem, Other Sensory Impairments Opthamlomology History: Reports: Hx Contacts or Glasses Denies: Hx Cataracts, Hx Eye Injury, Hx Eye Prosthesis, Hx Glaucoma, Hx Legally Blind, Hx Macular Degeneration, Hx Vision Problem, Other Sensory Impairments Neurological History: Reports: Hx CVA - 08/02/2015, Other Neuro Impairments/ Disorders - recent onset weakness Denies: Hx Dementia, Hx Developmental Delay, Hx Headaches, Hx Migraine, Hx Nerve Disease, Hx Seizures, Hx Spinal Cord Injury, Hx Transient Ischemic Attacks (TIA) Psychiatric History: Denies: Hx Anxiety, Hx Attention Deficit Hyperactivity Disorder, Hx Eating Disorder, Hx Depression, Hx Panic Disorder, Hx Post Traumatic Stress Disorder, Hx Inpatient Treatment, Hx Community Mental Health Tx, Hx Schizophrenia, Hx Bipolar Disorder, Hx Suicide Attempt, Hx of Violent Episodes Against Others, Hx Substance Abuse, Other Psychiatric Issues/Disorders - Surgical History Surgery Procedure, Year, and Place: CATARACTS; knee, foot surgery during childhood Hx Anesthesia Reactions: No Infectious Disease History: No Infectious Disease History: Denies: Hx Hepatitis, Traveled Outside the [place] in Last 30 Days - Family History Known Family History: Positive: None, Hypertension - Social History Occupation: Retired Lives: With Family Alcohol Use: None Substance Use Type: Reports: Other Substance Use Comment - Amount & Last Used: chewing tobacco Hx Tobacco Use: No Smoking Status (MU): Never Smoked Tobacco Review of Systems Constitutional: Negative Negative: Fever, Chills Eyes: Negative ENT: Negative Cardiovascular: Negative Negative: Chest Pain Respiratory: Negative Negative: Shortness Of Breath, Cough Gastrointestinal: Negative Negative: Abdominal Pain Genitourinary: Negative Positive: no symptoms reported Musculoskeletal: Negative Skin: Negative Neurological: Negative Psychological: Normal All Other Systems Reviewed And Are Negative: Yes Physical Exam Triage Information Reviewed: Yes Vital Signs On Initial Exam: Initial Vitals Temp Pulse Resp BP Pulse Ox 97.4 F 71 20 143/128 97 05/27/17 16:27 05/27/17 16:27 05/27/17 16:27 05/27/17 16:27 05/27/17 16:27 Vital Signs Reviewed: Yes Appearance: Positive: Well-Appearing, No Pain Distress, Well-Nourished Skin: Positive: Warm, Skin Color Reflects Adequate Perfusion, Dry Head/Face: Positive: Normal Head/Face Inspection Eyes: Positive: EOMI, CHRISTINA ENT: Positive: Normal ENT inspection, Hearing grossly normal Neck: Positive: Supple, Nontender Respiratory/Lung Sounds: Positive: Clear to Auscultation, Breath Sounds Present Cardiovascular: Positive: RRR, Pulses are Symmetrical in both Upper and Lower Extremities, Leg Edema Left, Leg Edema Right Abdomen Description: Positive: Nontender, Soft Bowel Sounds: Positive: Present Musculoskeletal: Positive: Strength/ROM Intact, Edema Left - bilateral leg edema , Edema Right - bilateral leg edema Neurological: Positive: Sensory/Motor Intact, Alert, Oriented to Person Place, Time Psychiatric: Positive: Affect/Mood Appropriate Diagnostics - Vital Signs Vital Signs Temp Pulse Resp BP Pulse Ox 05/27/17 17:07 97.8 F 63 18 122/64 94 05/27/17 16:27 97.4 F 71 20 143/128 97 - Laboratory Lab Results: Lab Results 05/27/17 05/27/17 05/27/17 Range/Units 17:12 17:12 17:12 WBC 8.9 (3.5-10.8) 10^3/ul RBC 3.01 L (4.0-5.4) 10^6/ul Hgb 7.4 L (14.0-18.0) g/dl Hct 23 L (42-52) % MCV 76 L (80-94) fL MCH 25 L (27-31) pg MCHC 32 (31-36) g/dl RDW 20 H (10.5-15) % Plt Count 250 (150-450) 10^3/ul MPV 7 L (7.4-10.4) um3 Neut % (Auto) 85.2 H (38-83) % Lymph % (Auto) 4.9 L (25-47) % [place] % (Auto) 7.4 (1-9) % Eos % (Auto) 1.3 (0-6) % Baso % (Auto) 1.2 (0-2) % Absolute Neuts (auto) 7.6 (1.5-7.7) 10^3/ul Absolute Lymphs (auto) 0.4 L (1.0-4.8) 10^3/ul Absolute Monos (auto) 0.7 (0-0.8) 10^3/ul Absolute Eos (auto) 0.1 (0-0.6) 10^3/ul Absolute Basos (auto) 0.1 (0-0.2) 10^3/ul Absolute Nucleated RBC 0 10^3/ul Nucleated RBC % 0 INR (Anticoag Therapy) 1.25 H (0.89-1.11) APTT 30.1 (26.0-36.3) seconds Blood Type O Positive Antibody Screen Pending Result Diagrams: 05/27/17 17:12 05/27/17 17:12 Lab Statement: Any lab studies that have been ordered have been reviewed, and results considered in the medical decision making process. GIGU Course/Dx - Course Course Of Treatment: Reviewed pts medication and allergy lists. High blood pressure noted. ADMIT HOSPITALIST STABLE. NO CRITICAL CARE TIME. - Diagnoses Provider Diagnoses: Anemia, CHF (congestive heart failure), Renal insufficiency Discharge - Discharge Plan Condition: Fair Disposition: ADMITTED TO [facility] The documentation as recorded by the Joselo walker Benjamin accurately reflects the service I personally performed and the decisions made by , Jaden Irvin MD.
[2017-05-27] MEDS: Furosemide IV* 10 MG/ML VIAL (40 MG) IV SCH (21:17)
[2017-05-27 21:58] LABS: Urine Bacteria Absent (Absent); Urine Bilirubin Negative (Negative); Urine Glucose Negative (Negative); Urine Nitrite Negative (Negative)
[2017-05-27] MEDS: Metoprolol Tartrate TAB* 25 MG PO SCH (22:15)
[2017-05-27] MEDS: Atorvastatin* 80 MG TAB PO SCH (22:15)
[2017-05-27] MEDS: Potassium Chlor TAB* 10 MEQ TAB.ER PO SCH (22:15)
[2017-05-27] MEDS: Ferrous Sulfate TAB* 325 MG PO SCH (22:15)
[2017-05-27] MEDS: Omeprazole CAP* 20 MG PO SCH (22:52)
[2017-05-28] MEDS: Furosemide IV* 10 MG/ML VIAL (40 MG) IV SCH (00:38)
[2017-05-28 05:00] LABS: BUN/Creatinine Ratio 17.6 (8-20); Calcium 8.7 mg/dL (8.6-10.3); EGFR African American 28.1 (>60); EGFR Non-African American 21.8 (>60); Potassium 3.7 mmol/L (3.5-5.0)
[2017-05-28] MEDS ORDERED: Torsemide TAB* 20 MG PO SCH (09:00)
[2017-05-28] MEDS ORDERED: Furosemide IV* 10 MG/ML VIAL (40 MG) IV ONE (09:15)
[2017-05-28] MEDS: Psyllium PAK PO SCH (09:24)
[2017-05-28] MEDS: Metoprolol Tartrate TAB* 25 MG PO SCH ×2 (09:24→20:44)
[2017-05-28] MEDS: Sertraline* 25 MG TAB PO SCH (09:24)
[2017-05-28] MEDS: amLODIPine TAB* 5 MG PO SCH (09:24)
[2017-05-28] MEDS: Ferrous Sulfate TAB* 325 MG PO SCH ×2 (09:24→20:43)
[2017-05-28] MEDS: Omeprazole CAP* 20 MG PO SCH ×2 (09:25→20:42)
[2017-05-28] MEDS: Potassium Chlor TAB* 10 MEQ TAB.ER PO SCH ×2 (09:25→20:42)
[2017-05-28] MEDS ORDERED: Perflutren Lipid Microsphere* 3 ML VIAL ONE (10:20)
--- NOTE | 2017-05-28 12:49 | ECHO ---
Patient: NENA BACON [facility] Rec#: [id number] : 1935 Date: 05/28/2017 Age: 81y Height: 177.8 cm / 70.0 in Weight: 107.95 kg / 237.9 lbs Sex: M BSA: 2.25 Room#: 440 Admit Date#: 05/27/2017 Type: Inpatient Referring: Phillip Gómez MD Reading: Moses Meyers MD Tetryl Nitrator Operator: Ashanti Bradley RDCS CC: Flor Rondon NP Transthoracic Echocardiogram Indication: CHF BP: 122/66 HR: 104 Rhythm: A-Fib Findings History: DM type II,anemia,HTN,GERD. Technical Comments: The study is technically limited due to patient body habitus. Completed at 1214. Left Ventricle: The left ventricular chamber size is decreased. Moderate to severe concentric left ventricular hypertrophy is observed. The left ventricle appears hyperdynamic. The estimated ejection fraction is greater than 65%. The assessment of diastolic function is non-diagnostic. Left Atrium: The left atrium is moderate to severely dilated. Right Ventricle: The right ventricle is slightly dilated. The right ventricular global systolic function is normal. Right Atrium: The right atrium is mildly dilated. Aortic Valve: The aortic valve is trileaflet. The aortic valve leaflets are mildly thickened. Systolic excursion of the aortic valve is normal. There is a trace of aortic regurgitation. There is no evidence of aortic stenosis. Mitral Valve: There is mitral annular calcification. There is mild mitral regurgitation. There is no evidence of mitral stenosis. Tricuspid Valve: The tricuspid valve leaflets are normal. There is mild tricuspid regurgitation. The right ventricular systolic pressure is estimated at 47 mmHg. There is evidence of mild to moderate pulmonary hypertension. There is no tricuspid stenosis. Pulmonic Valve: The pulmonic valve appears normal. There is no evidence of pulmonic regurgitation. There is no pulmonic stenosis. Pericardium: The pericardium appears normal. Aorta: There is no dilatation of the ascending aorta. There is no dilatation of the aortic arch. There is no dilation of the aortic root. Pulmonary Artery: The main pulmonary artery appears normal. Venous: The venous system is not well visualized. Contrast: Definity was used to optimize study. A total of 4 ml. utilized. Intravenous contrast was used to enhance endocardial border definition. Conclusions The study is technically limited due to patient body habitus. Completed at 1214. Moderate to severe concentric left ventricular hypertrophy is observed. The left ventricle appears hyperdynamic. The estimated ejection fraction is greater than 65%. The assessment of diastolic function is non-diagnostic. There is mild mitral regurgitation. The left atrium is moderately to severely dilated. There is a trace of aortic regurgitation. There is mild tricuspid regurgitation. There is evidence of mild to moderate pulmonary hypertension. Compared to report of prior study from 08/03/2015 the mitral regurgitation is now seen. Measurements Name Value Normal Range RVIDd (AP) 2D 3.5 cm (0.9 - 2.6) RVDdMajor (2D) 4.5 cm (2.2 - 4.4) RAd ISD 4CH 6.4 cm (3.4 - 4.9) RA (A4C)W 4.4 cm (2.9 - 4.6) IVSd (2D) 2.2 cm (0.6 - 1) LVPWd (2D) 1.4 cm (0.6 - 1) LVIDd (2D) 3.3 cm (3.6 - 5.4) LVIDs (2D) 2.1 cm - LV FS (2D) 36 % (25 - 45) Aortic Annulus 2 cm (1.4 - 2.6) Ao root diameter (2D) 3.5 cm (2.1 - 3.5) Ascending Ao 2.8 cm (2.1 - 3.4) Aortic arch 3.4 cm (1.8 - 3.4) Descending Ao 0.3 cm - LA dimension (AP) 2D 5 cm (2.3 - 3.8) LAd ISD 4CH 6.6 cm (2.9 - 5.3) LA ISD 4CH W 4.4 cm (2.5 - 4.5) Name Value Normal Range LA ESV SP 4CH (A/L) 97 ml - LA ESV SP 2CH (A/L) 98 ml - LA ESV BP (A/L) 103 ml - LA ESV BP (A/L) index 45.71 ml/m2 - LA ESV SP 4CH (MOD) 85 ml - LA ESV SP 2CH (MOD) 94 ml - Name Value Normal Range MV E-wave Vmax 1.1 m/sec - MV deceleration time 278 msec - MV E:A ratio 228 ratio - LV septal e' Vmax 0.07 m/sec - LV lateral e' Vmax 0.07 m/sec - LV E:e' septal ratio 15.71 ratio - LV E:e' lateral ratio 15.71 ratio - Name Value Normal Range AV Vmax 1.4 m/sec - AV VTI 30.2 cm - AV peak gradient 8.04 mmHg - AV mean gradient 4.02 mmHg - LVOT Vmax 1.1 m/sec - LVOT VTI 25.8 cm - LVOT peak gradient 4.46 mmHg - LVOT mean gradient 2.28 mmHg - Name Value Normal Range MR Vmax 3.1 m/sec - MR VTI 99.5 cm - Name Value Normal Range TR Vmax 3.1 m/sec - TR peak gradient 39 mmHg - RAP 8 mmHg - RVSP 47 mmHg - Name Value Normal Range PV Vmax 1 m/sec - PV peak gradient 3.78 mmHg -
--- NOTE | 2017-05-28 17:20 | PN ---
Subjective Date of Service: 05/28/17 Interval History: c/o leg edema for 3 months , no SOB, no CP No h/o melena or BPBPR Family History: Findings - Father had colon ca Social History: Findings - Never smoked. No alcohol abuse. Lives with his who is his SDM. Past Medical History: Findings - CVA, atrial fib, CEA, cataract surgery, HL, HTN , DM on diet only Objective Active Medications: Amlodipine Besylate (Norvasc Tab*) 2.5 mg PO DAILY [facility] Last Admin: 05/28/17 09:24 Dose: 2.5 mg Atorvastatin Calcium (Lipitor*) 40 mg PO BEDTIME [facility] Last Admin: 05/27/17 22:15 Dose: 40 mg Ferrous Sulfate (Ferrous Sulfate Tab*) 325 mg PO BID [facility] Last Admin: 05/28/17 09:24 Dose: 325 mg Metoprolol Tartrate (Lopressor Tab*) 25 mg PO BID [facility] Last Admin: 05/28/17 09:24 Dose: 25 mg Omeprazole (Prilosec Cap*) 20 mg PO BID [facility] Last Admin: 05/28/17 09:25 Dose: 20 mg Potassium Chloride (Klor Con Er Tab*) 10 meq PO BID [facility] Last Admin: 05/28/17 09:25 Dose: 10 meq Psyllium Hydrophilic Mucilloid (Metamucil Azam*) 1 pkt PO DAILY [facility] Last Admin: 05/28/17 09:24 Dose: 1 pkt Sertraline HCl (Zoloft*) 75 mg PO DAILY [facility] Last Admin: 05/28/17 09:24 Dose: 75 mg Torsemide (Demadex*) 80 mg PO DAILY [facility] Last Admin: 05/28/17 09:24 Dose: 80 mg Oxygen Devices in Use Now: None Appearance: 81 yo M in nAD, AAOx3, [place] Eyes: No Scleral Icterus, PERRLA Ears/Nose/Mouth/Throat: NL Teeth, Lips, Gums, Mucous Membranes Moist Neck: NL Appearance and Movements; NL JVP, Trachea Midline Respiratory: Symmetrical Chest Expansion and Respiratory Effort Cardiovascular: NL Sounds; No Murmurs; No JVD, - - irregular Abdominal: NL Sounds; No Tenderness; No Distention, No Hepatosplenomegaly Lymphatic: No Cervical Adenopathy Extremities: No Clubbing, Cyanosis, - - +2 pitting pedal edema b/l Skin: No Rash or Ulcers, No Nodules or Sclerosis Neurological: Alert and Oriented x 3, NL Muscle Strength and Tone Result Diagrams: 05/27/17 17:12 05/28/17 04:27 Additional Lab and Data: Lab Results 05/27/17 05/27/17 05/27/17 Range/Units 17:12 17:12 17:12 WBC 8.9 (3.5-10.8) 10^3/ul RBC 3.01 L (4.0-5.4) 10^6/ul Hgb 7.4 L (14.0-18.0) g/dl Hct 23 L (42-52) % MCV 76 L (80-94) fL MCH 25 L (27-31) pg MCHC 32 (31-36) g/dl RDW 20 H (10.5-15) % Plt Count 250 (150-450) 10^3/ul MPV 7 L (7.4-10.4) um3 Neut % (Auto) 85.2 H (38-83) % Lymph % (Auto) 4.9 L (25-47) % [place] % (Auto) 7.4 (1-9) % Eos % (Auto) 1.3 (0-6) % Baso % (Auto) 1.2 (0-2) % Absolute Neuts (auto) 7.6 (1.5-7.7) 10^3/ul Absolute Lymphs (auto) 0.4 L (1.0-4.8) 10^3/ul Absolute Monos (auto) 0.7 (0-0.8) 10^3/ul Absolute Eos (auto) 0.1 (0-0.6) 10^3/ul Absolute Basos (auto) 0.1 (0-0.2) 10^3/ul Absolute Nucleated RBC 0 10^3/ul Nucleated RBC % 0 INR (Anticoag Therapy) 1.25 H (0.89-1.11) APTT 30.1 (26.0-36.3) seconds Blood Type O Positive Antibody Screen Pending Microbiology and Other Data: Microbiology 05/27/17 17:30 Stool Occult Blood (EVANS) - Final Stool Assess/Plan/Problems-Billing Assessment: Mr Moctezuma is an 81 yo M who has a h/o afib , past CVA, HTN, DM and HLD who presented to [facility] [facility] with c/o CHF and anemia. H/o AVM's and chronic upper GI bleed requiring intermittent transfusions - Patient Problems (1) CHF (congestive heart failure) Comment: Acute diastolic. EF 65% cont IV Lasix. Educated about low salt diet. (2) CKD (chronic kidney disease) stage 4, GFR 15-29 ml/min Comment: At his baseline. Note PVR 0-20 ml by bladder scan. (3) Atrial fibrillation Comment: HR is controlled. (4) Upper GI bleed Comment: D/w Dr. Garcia: s/o 2 EGD's in the past year showing AVM's. Off coumadin, but stool still heme positive. cont PPI BID, no other tx recommended. Pt may be transfusion dependent. As per d/w GI no need for another EGD. (5) Anemia Comment: Due to AVM's cont PPI s/p 2 U PRBC transfusion F/u CBC in AM (6) Diabetes Comment: He is diet controlled. FS bid with parameters. (7) DVT prophylaxis Comment: SCDs, no anticoagulation due to GI bleed Status and Disposition: inpatient. Pt is deconditioned. PO/OT ordered
[2017-05-28] MEDS: Atorvastatin* 80 MG TAB PO SCH (20:42)
[2017-05-29 05:34] LABS: Hematocrit 25 % (42-52); Hemoglobin 8.2 g/dl (14.0-18.0); Mean Corpuscular HGB Conc 33 g/dl (31-36); Mean Corpuscular Hemoglobin 26 pg (27-31); Mean Corpuscular Volume 78 fL (80-94); Mean Platelet Volume 7 um3 (7.4-10.4); Red Blood Count 3.18 10^6/ul (4.0-5.4); Red Cell Distribution Width 20 % (10.5-15); White Blood Count 7.2 10^3/ul (3.5-10.8)
[2017-05-29 05:50] LABS: BUN/Creatinine Ratio 17.6 (8-20); Calcium 8.6 mg/dL (8.6-10.3); EGFR African American 26.9 (>60); EGFR Non-African American 20.9 (>60); Potassium 3.3 mmol/L (3.5-5.0)
[2017-05-29] MEDS: Furosemide IV* 10 MG/ML 10 ML VIAL (100 MG) IV SCH ×2 (07:45→17:14)
[2017-05-29] MEDS: Psyllium PAK PO SCH (07:52)
[2017-05-29] MEDS: Ferrous Sulfate TAB* 325 MG PO SCH ×2 (07:53→21:30)
[2017-05-29] MEDS: Metoprolol Tartrate TAB* 25 MG PO SCH ×3 (07:53→21:30)
[2017-05-29] MEDS: Omeprazole CAP* 20 MG PO SCH ×2 (07:53→21:30)
[2017-05-29] MEDS: amLODIPine TAB* 5 MG PO SCH (07:53)
[2017-05-29] MEDS: Potassium Chlor TAB* 10 MEQ TAB.ER PO SCH ×2 (07:53→21:30)
[2017-05-29] MEDS: Sertraline* 25 MG TAB PO SCH (07:54)
[2017-05-29] MEDS ORDERED: Potassium Chlor TAB* 20 MEQ TAB.ER PO ONE (08:21)
[2017-05-29] MEDS: Nystatin TOP POWDER* 15 GM BTL TOPICAL SCH ×2 (13:17→21:55)
--- NOTE | 2017-05-29 17:17 | PN ---
Subjective Date of Service: 05/29/17 Interval History: Pt is at his functional baseline according to PT/OT eval. Ambulated with a walker and one person assist today. Tires easily. noted to be bradycardic at night Family History: Findings - Father had colon ca Social History: Findings - Never smoked. No alcohol abuse. Lives with his who is his SDM. Past Medical History: Findings - CVA, atrial fib, CEA, cataract surgery, HL, HTN , DM on diet only Objective Active Medications: Amlodipine Besylate (Norvasc Tab*) 2.5 mg PO DAILY [facility] Last Admin: 05/29/17 07:53 Dose: 2.5 mg Atorvastatin Calcium (Lipitor*) 40 mg PO BEDTIME [facility] Last Admin: 05/28/17 20:42 Dose: 40 mg Ferrous Sulfate (Ferrous Sulfate Tab*) 325 mg PO BID [facility] Last Admin: 05/29/17 07:53 Dose: 325 mg Furosemide (Lasix Iv*) 60 mg IV 0800,1700 [facility] Last Admin: 05/29/17 07:45 Dose: 60 mg Metoprolol Tartrate (Lopressor Tab*) 12.5 mg PO BID [facility] Last Admin: 05/29/17 11:09 Dose: Not Given Nystatin (Nystatin Top Powder*) 1 applic TOPICAL TID [facility] Last Admin: 05/29/17 13:17 Dose: 1 applic Omeprazole (Prilosec Cap*) 20 mg PO BID [facility] Last Admin: 05/29/17 07:53 Dose: 20 mg Potassium Chloride (Klor Con Er Tab*) 10 meq PO BID [facility] Last Admin: 05/29/17 07:53 Dose: 10 meq Psyllium Hydrophilic Mucilloid (Metamucil Azam*) 1 pkt PO DAILY [facility] Last Admin: 05/29/17 07:52 Dose: 1 pkt Sertraline HCl (Zoloft*) 75 mg PO DAILY [facility] Last Admin: 05/29/17 07:54 Dose: 75 mg Vital Signs 05/28/17 05/28/17 05/28/17 19:46 20:00 23:43 Temperature 97.9 F 97.6 F Pulse Rate 57 46 Respiratory 16 16 16 Rate Blood Pressure 142/77 123/56 (mmHg) O2 Sat by Pulse 99 97 Oximetry 05/29/17 05/29/17 05/29/17 04:03 07:27 07:48 Temperature 97.7 F 98.1 F Pulse Rate 68 62 68 Respiratory 16 18 Rate Blood Pressure 108/61 101/61 124/70 (mmHg) O2 Sat by Pulse 95 99 Oximetry 05/29/17 05/29/17 05/29/17 08:00 11:41 15:12 Temperature 98.3 F 97.9 F Pulse Rate 60 65 Respiratory 17 18 18 Rate Blood Pressure 120/52 131/80 (mmHg) O2 Sat by Pulse 97 98 Oximetry Oxygen Devices in Use Now: None Appearance: 81 yo m in nAD, AAOx3, poor historian, [place] Eyes: No Scleral Icterus, PERRLA Ears/Nose/Mouth/Throat: NL Teeth, Lips, Gums, Mucous Membranes Moist Neck: NL Appearance and Movements; NL JVP, Trachea Midline Respiratory: Symmetrical Chest Expansion and Respiratory Effort, Clear to Auscultation Cardiovascular: NL Sounds; No Murmurs; No JVD, - - irregular Abdominal: NL Sounds; No Tenderness; No Distention, No Hepatosplenomegaly Lymphatic: No Cervical Adenopathy Extremities: No Clubbing, Cyanosis, - - +2 b/l pedal edema -improving Skin: No Rash or Ulcers, No Nodules or Sclerosis Neurological: Alert and Oriented x 3, NL Muscle Strength and Tone Result Diagrams: 05/29/17 04:45 05/29/17 04:45 Additional Lab and Data: Lab Results 05/27/17 05/27/17 05/27/17 Range/Units 17:12 17:12 17:12 WBC 8.9 (3.5-10.8) 10^3/ul RBC 3.01 L (4.0-5.4) 10^6/ul Hgb 7.4 L (14.0-18.0) g/dl Hct 23 L (42-52) % MCV 76 L (80-94) fL MCH 25 L (27-31) pg MCHC 32 (31-36) g/dl RDW 20 H (10.5-15) % Plt Count 250 (150-450) 10^3/ul MPV 7 L (7.4-10.4) um3 Neut % (Auto) 85.2 H (38-83) % Lymph % (Auto) 4.9 L (25-47) % [place] % (Auto) 7.4 (1-9) % Eos % (Auto) 1.3 (0-6) % Baso % (Auto) 1.2 (0-2) % Absolute Neuts (auto) 7.6 (1.5-7.7) 10^3/ul Absolute Lymphs (auto) 0.4 L (1.0-4.8) 10^3/ul Absolute Monos (auto) 0.7 (0-0.8) 10^3/ul Absolute Eos (auto) 0.1 (0-0.6) 10^3/ul Absolute Basos (auto) 0.1 (0-0.2) 10^3/ul Absolute Nucleated RBC 0 10^3/ul Nucleated RBC % 0 INR (Anticoag Therapy) 1.25 H (0.89-1.11) APTT 30.1 (26.0-36.3) seconds Blood Type O Positive Antibody Screen Pending Microbiology and Other Data: Microbiology 05/27/17 17:30 Stool Occult Blood (EVANS) - Final Stool Assess/Plan/Problems-Billing Assessment: Mr Moctezuma is an 81 yo M who has a h/o afib , past CVA, HTN, DM and HLD who presented to [facility] with c/o CHF and anemia. H/o AVM's and chronic upper GI bleed requiring intermittent transfusions - Patient Problems (1) CHF (congestive heart failure) Comment: Acute diastolic. EF 65% cont IV Lasix. Educated about low salt diet. (2) CKD (chronic kidney disease) stage 4, GFR 15-29 ml/min Comment: At his baseline. Note PVR 0-20 ml by bladder scan. (3) Atrial fibrillation Comment: bradycardic last night , lopressor decreased to 12.5 mg BID (4) Upper GI bleed Comment: D/w Dr. Garcia: s/o 2 EGD's in the past year showing AVM's. Off coumadin since last GI bleed 3 months ago, but stool still heme positive. cont PPI BID, no other tx recommended. Pt may be transfusion dependent. As per d /w GI no need for another EGD. (5) Anemia Comment: Due to AVM's cont PPI s/p 2 U PRBC transfusion F/u CBC in AM Hb baseline at 8-9 (6) Diabetes Comment: He is diet controlled. FS bid with parameters. (7) DVT prophylaxis Comment: SCDs, no anticoagulation due to GI bleed Status and Disposition: inpatient.
[2017-05-29] MEDS: Atorvastatin* 80 MG TAB PO SCH (21:30)
[2017-05-30 05:10] LABS: Hematocrit 25 % (42-52); Hemoglobin 8.3 g/dl (14.0-18.0); Mean Corpuscular HGB Conc 33 g/dl (31-36); Mean Corpuscular Hemoglobin 26 pg (27-31); Mean Corpuscular Volume 78 fL (80-94); Mean Platelet Volume 7 um3 (7.4-10.4); Red Blood Count 3.16 10^6/ul (4.0-5.4); Red Cell Distribution Width 20 % (10.5-15); White Blood Count 7.9 10^3/ul (3.5-10.8)
[2017-05-30 05:28] LABS: BUN/Creatinine Ratio 17.8 (8-20); Calcium 8.3 mg/dL (8.6-10.3); EGFR African American 27.3 (>60); EGFR Non-African American 21.2 (>60); Potassium 3.4 mmol/L (3.5-5.0)
[2017-05-30 08:26] VITALS: BP 113/53
[2017-05-30] MEDS ORDERED: Potassium Chlor TAB* 20 MEQ TAB.ER PO ONE (08:29)
[2017-05-30] MEDS: Psyllium PAK PO SCH (08:36)
[2017-05-30] MEDS: Furosemide IV* 10 MG/ML 10 ML VIAL (100 MG) IV SCH (08:37)
[2017-05-30] MEDS: Sertraline* 25 MG TAB PO SCH (08:40)
[2017-05-30] MEDS: amLODIPine TAB* 5 MG PO SCH (08:40)
[2017-05-30] MEDS: Ferrous Sulfate TAB* 325 MG PO SCH (08:41)
[2017-05-30] MEDS: Potassium Chlor TAB* 10 MEQ TAB.ER PO SCH (08:41)
[2017-05-30] MEDS: Omeprazole CAP* 20 MG PO SCH (08:41)
[2017-05-30] MEDS: Nystatin TOP POWDER* 15 GM BTL TOPICAL SCH ×2 (08:51→13:56)
[2017-05-30] MEDS: Metoprolol Tartrate TAB* 25 MG PO SCH (09:26)
--- NOTE | 2017-05-31 01:31 | DS ---
CC: Dr. Garcia; HERI Ayon DISCHARGE SUMMARY: DATE OF ADMISSION: 05/27/17 DATE OF DISCHARGE: 05/30/17 PRIMARY CARE PROVIDER: HERI Ayon DISCHARGE DIAGNOSES: 1. Worsening of chronic microcytic anemia due to chronic bleeds from multiple AVMs in the patient's upper GI tract, status post 2 units of packed red blood cell transfusion during the hospital stay. 2. Acute diastolic congestive heart failure. SECONDARY DIAGNOSES: 1. History of diabetes, diet controlled. 2. History of dyslipidemia. 3. History of hypertension. 4. History of chronic atrial fibrillation, not on anticoagulation due to history of chronic anemia and chronic GI bleed. 5. History of carotid endarterectomy. 6. History of cerebrovascular accident. 7. Chronic kidney disease stage 4. MEDICATIONS AT DISCHARGE: Include: 1. Ferrous sulfate 325 mg b.i.d. 2. Metoprolol tartrate 12.5 mg b.i.d. 3. Nystatin powder apply to groin and abdominal folds twice a day. 4. Omeprazole 20 mg b.i.d. 5. Potassium chloride 20 mEq daily. 6. Metamucil 1 packet daily. 7. Crestor 40 mg at bedtime. 8. Zoloft 75 mg daily. 9. Demadex 80 mg daily. 10. Amlodipine 2.5 mg daily. FOLLOWUP INSTRUCTIONS: At discharge, the patient is recommended to have a basic metabolic panel and CBC drawn in approximately 3 to 4 days. Recommendation to send this to primary care provider for f urther evaluation of patient's chronic kidney disease and anemia. The patient is set up with visiting nurse service at discharge. LABORATORY DATA AND STUDIES PERFORMED DURING THE HISTORY STAY: Included: On 05/30/17, white blood cell count of 7.9, hemoglobin of 8.3, hematocrit of 25, and platelets of 20 6. Sodium was 136, potassium 3.4, chloride 94, carbon dioxide 33, BUN 51, creatinine 2.86, which is bianka ser to the patient's baseline. The patient's brain natriuretic peptide at admission was 405. C-carine ctive protein was 43. The patient's transthoracic echocardiogram obtained on 05/27/17 showed EF of 65%, severe concentric LVH, trace aortic regurgitation, mild mitral regurgitation and moderate pulmonary hypertension. The patient's stool was heme positive, but brown. HOSPITALIZATION COURSE: Dejan Moctezuma is an 81-year-old male with history of recurrent GI bleed, who was on Coumadin up to February of 2017, which was discontinued. In February of 2017, he had an upper endosc opy performed by Dr. Garcia that showed gastritis and nonbleeding AVMs in his upper GI tract. Sinc e then, the patient had been transfused occasionally. He went to see his primary care provider on 0 05/27/17 with complaints of worsening shortness of breath, leg edema. He was sent to the ED for eval uation of CHF, but he also was noted to have hemoglobin at 7.4. He was transfused 2 units of packed red blood cells. The case was discussed with Dr. Garcia, who was the drafter who saw t he patient last time in February. There were no further suggestions and due to that the patient is alrea dy on PPI b.i.d. 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 At this point, after discussion with Dr. Garcia, the patie nt will likely be transfusion dependent and he will require transfusion every couple of months or so . The patient's blood levels stabilized and after his initial 2 units of packed red blood cells tra nsfusion to a hemoglobin of 8.3 at the time of discharge. Throughout his hospital stay, the patient was aggressively diuresed with intravenous Lasix and his w eight improved from 229 at admission to 221 pounds at discharge. He is going to switched from furos emide to torsemide at discharge. Due to bradycardia during the hospital stay, his metoprolol dose w as decreased to 12.5 mg b.i.d. The patient does have marked deconditioning and he was evaluated with Physical Therapy, Occupational Therapy. Both of the services deemed that the patient is at his functional baseline at home. He h as a chair that ejects him to the standing position and he is able to walk and he had been able to w alk with a walker during his hospital stay. He was offered short-term rehabilitation since his was interested in that, but the patient himself refused. The patient is being setup with visiting nurse association visits at home. PHYSICAL EXAMINATION: At the time of discharge, blood pressure of 113/53, heart rate of 53 and irre gular, respiratory rate 18, oxygen saturation 95% on room air, temperature 97.8. General: The cameron ent is a very pleasant 81-year-old male, who is in no acute distress. Alert and oriented x3. The p atient is a poor historian and is hard of hearing. HEENT: Head atraumatic, normocephalic. Eyes: Pupils equal, round, and reactive to light and accommodation. Oropharynx clear. Mucosa moist. Nec k: Supple. No JVD. No bruits bilaterally. Cardiovascular: Regular rate and rhythm. No murmur. Respiratory: Clear to auscultation bilaterally. Abdomen: Soft, nontender. Bowel sounds present i n all 4 quadrants. Extremities: There is trace bilateral pedal edema, markedly improved from +2 lauren ateral edema at admission. Pulses are +2 bilaterally. There is no clubbing or cyanosis. On evalua tion of skin, there are no rashes noted. Psychiatric Evaluation: Somewhat withdrawn mostly due to being very hard of hearing, but pleasant and cooperative with evaluation with no evidence of anxiety or depression. Please note that this is a short summary of this patient's hospitalization. Please refer to further medical records for details. TIME SPENT: Approximately 45 minutes were spent on the patient's discharge. [id number]/[facility] #: [id number]
== END 2017-05-30 14:10 | disposition home health service (06) | DRG 291 ==
LOC: ED 16:24 → MEDTELE 18:29 → OBSVTOIN 05-28 12:51
PROVIDERS: ADMIT Internal Medicine; ATTEND Internal Medicine
PROC: 30233N1 Transfusion of Nonautologous Red Blood Cells into Peripheral Vein, Percutaneous Approach (ICD-10-PCS; principal; 2017-05-28)
DX: I13.0 Hypertensive heart and chronic kidney disease with heart failure and stage 1 through stage 4 chronic kidney disease, or unspecified chronic kidney disease (principal); I50.33 Acute on chronic diastolic (congestive) heart failure; N18.4 Chronic kidney disease, stage 4 (severe); E11.22 Type 2 diabetes mellitus with diabetic chronic kidney disease; I27.2 Other secondary pulmonary hypertension; K92.2 Gastrointestinal hemorrhage, unspecified; E78.5 Hyperlipidemia, unspecified; K21.9 Gastro-esophageal reflux disease without esophagitis; M19.90 Unspecified osteoarthritis, unspecified site; R00.1 Bradycardia, unspecified; I48.2 Chronic atrial fibrillation; I08.0 Rheumatic disorders of both mitral and aortic valves; D50.0 Iron deficiency anemia secondary to blood loss (chronic); Z80.0 Family history of malignant neoplasm of digestive organs; Z86.73 Personal history of transient ischemic attack (TIA), and cerebral infarction without residual deficits; Z98.42 Cataract extraction status, left eye; Z98.41 Cataract extraction status, right eye; Z82.49 Family history of ischemic heart disease and other diseases of the circulatory system; Z72.0 Tobacco use; Q27.33 Arteriovenous malformation of digestive system vessel
CPT/HCPCS: 36415; 80048; 80053; 81003; 81015; 82270; 82728; 83540; 83550; 83605; 83690; 83735; 83880; 85025; 85027; 85610; 85730; 86140; 86850; 86900; 86901; 86922; 93306; A9270-GY; C8929; G0378; J1940; P9040

== ENCOUNTER 2017-09-21 13:28 | Emergency (ER) | payer MEDICARE ==
[2017-09-21 13:44] VITALS: BP 110/57
--- NOTE | 2017-09-21 14:54 | RAD ---
Indication: LEFT shoulder pain post fall. Pain with movement. Comparison: No relevant prior exams available on the [facility] PACS for comparison. Technique: Internal rotation AP, external rotation Grashey, scapular Y, axillary views LEFT shoulder. AP and cephalad oblique views LEFT clavicle. Report: Normal acromioclavicular and glenohumeral joint alignment. Unremarkable sternoclavicular joint alignment. Mildly comminuted fracture through the clavicle involving the base of the acromium and coracoid processes as well as the cephalad margin of the glenoid and extension medially along the scapular spine. Normal acromial clavicular and glenohumeral joint alignment. Significant cephalad displacement of the glenoid component of the fracture likely contiguous with the coracoid process results in significant articular surface discontinuity and incongruity. The clavicle is intact. Reactive enthesopathy and sclerosis at the greater tuberosity consistent with chronic rotator cuff pathology. 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 Soft tissue swelling over the dorsal and lateral aspects. IMPRESSION: Mildly comminuted fracture through the clavicle involving the base of the acromium and coracoid processes as well as the cephalad margin of the glenoid and extension medially along the scapular spine. Normal acromial clavicular and glenohumeral joint alignment. Significant cephalad displacement of the glenoid component of the fracture likely contiguous with the coracoid process results in significant articular surface discontinuity and incongruity.
--- NOTE | 2017-09-21 14:54 | RAD ---
Indication: LEFT shoulder pain post fall. Pain with movement. Comparison: No relevant prior exams available on the [facility] PACS for comparison. Technique: Internal rotation AP, external rotation Grashey, scapular Y, axillary views LEFT shoulder. AP and cephalad oblique views LEFT clavicle. Report: Normal acromioclavicular and glenohumeral joint alignment. Unremarkable sternoclavicular joint alignment. Mildly comminuted fracture through the clavicle involving the base of the acromium and coracoid processes as well as the cephalad margin of the glenoid and extension medially along the scapular spine. Normal acromial clavicular and glenohumeral joint alignment. Significant cephalad displacement of the glenoid component of the fracture likely contiguous with the coracoid process results in significant articular surface discontinuity and incongruity. The clavicle is intact. Reactive enthesopathy and sclerosis at the greater tuberosity consistent with chronic rotator cuff pathology. 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 Soft tissue swelling over the dorsal and lateral aspects. IMPRESSION: Mildly comminuted fracture through the clavicle involving the base of the acromium and coracoid processes as well as the cephalad margin of the glenoid and extension medially along the scapular spine. Normal acromial clavicular and glenohumeral joint alignment. Significant cephalad displacement of the glenoid component of the fracture likely contiguous with the coracoid process results in significant articular surface discontinuity and incongruity.
--- NOTE | 2017-09-21 16:51 | RAD ---
Indication: LEFT humerus pain post fall from standing position. Pain with movement. Comparison: LEFT shoulder exam of the same day. Technique: AP and lateral views LEFT humerus. REPORT AND IMPRESSION: LEFT scapular fracture as described in the dedicated shoulder report. On the lateral view there is suggestion of an age indeterminant mild Hill-Sachs impaction fracture at the posterior lateral margin of the humeral head favoring previous anterior dislocation. Soft tissue swelling about the shoulder.
--- NOTE | 2017-09-21 19:09 | ED ---
Upper Extremity Pain - HPI Summary HPI Summary: Patient presents to the ED with family with CC of left shoulder pain. fell 7 days ago. pts states pt was standing using urinal and lost his balance. Denies hitting his head. Denies blood thinners. Patient states he has had pain in the anterior shoulder which is radiating to the humerus since the incident. He has not been able to abduct the shoulder past 30 degrees. Denies any any all other symptoms at this time. Aggravated by movement and better with rest and internal rotation and flexion of the arm. - History of Current Complaint Chief Complaint: EDShoulderClaMyles Stated Complaint: FALL Time Seen by Provider: 09/21/17 13:53 Hx Obtained From: Patient, Family/Technical Coordinator Mechanism Of Injury: Direct Blow Onset/Duration: Started Hours Ago Timing: Constant Severity Initially: Moderate Severity Currently: Moderate Pain Location: Shoulder, Arm Character: Aching Aggravating Factor(s): Movement, Lifting, Flexion, Extension, Internal/External Rotation, Abduction Alleviating Factor(s): Rest Related History: Dominant Hand Right - Risk Factors Non-Orthopedic Risk Factor: Negative DVT Risk Factors: Negative Septic Arthritis Risk Factor: Negative Compartment Syndrome Risk Factors: Pain - Allergies/Home Medications Allergies/Adverse Reactions: Allergies Allergy/AdvReac Type Severity Reaction Status Date / Time No Known Allergies Allergy Verified 08/06/16 09:38 PMH/Surg Hx/FS Hx/Imm Hx Previously Healthy: Yes Endocrine/Hematology History: Reports: Hx Diabetes, Hx Anemia Denies: Hx Anticoagulant Therapy, Hx Blood Disorders, Hx Blood Transfusions, Hx Bone Marrow Disease, Hx Systemic Lupus Erythematosus, Hx Sickle Cell Disease , Hx Thyroid Disease, Hx Unexplained Bleeding, Other Endocrine/Hematological Disorders Cardiovascular History: Reports: Hx Hypertension Denies: Hx Aneurysm, Hx Angina, Hx Angioplasty, Hx Auto Implanted Cardiovert Defib, Hx Cardiac Arrest, Hx Cardiomegaly, Hx Congenital Heart Disease, Hx Congestive Heart Failure, Hx Coronary Artery Disease, Hx Deep Vein Thrombosis, Hx Embolism, Hx Hypercholesterolemia, Hx Hypotension, Hx Myocardial Infarction, Hx Pacemaker/ICD, Hx Peripheral Vascular Disease, Hx Rheumatic Fever, Hx Syncope , Hx Valvular Heart Disease, Other Cardiovascular Problems/Disorders Respiratory History: Denies: Hx Asthma GI History: Reports: Hx Gastroesophageal Reflux Disease, Hx Gastrointestinal Bleed - ULCER, Hx Ulcer - ULCER Denies: Hx Cirrhosis, Hx Crohn's Disease, Hx Diverticulosis, Hx Gall Bladder Disease, Hx Hiatal Hernia, Hx Irritable Bowel, Hx Jaundice, Hx Obstructive Bowel , Hx Ileostomy, Hx Pyloric Stenosis, Other GI Disorders History: Reports: Other Problems/Disorders - Possibly CKD? Denies: Hx Renal Disease Musculoskeletal History: Reports: Hx Arthritis, Hx Back Problems, Other Musculoskeletal History - knee pain Denies: Hx Bursitis, Hx Congenital Bone Abnormalities, Hx Fibromyalgia, Hx Gout, Hx Orthopedic Injury, Hx Osteoporosis, Hx Scoliosis, Hx Tendonitis Sensory History: Reports: Hx Contacts or Glasses Denies: Hx Cataracts, Hx Eye Injury, Hx Eye Prosthesis, Hx Glaucoma, Hx Legally Blind, Hx Macular Degeneration, Hx Vision Problem, Hx Deafness, Hx Hearing Aid, Hx Hearing Problem, Other Sensory Impairments Opthamlomology History: Reports: Hx Contacts or Glasses Denies: Hx Cataracts, Hx Eye Injury, Hx Eye Prosthesis, Hx Glaucoma, Hx Legally Blind, Hx Macular Degeneration, Hx Vision Problem, Other Sensory Impairments Neurological History: Reports: Hx CVA - 08/02/2015, Other Neuro Impairments/ Disorders - recent onset weakness Denies: Hx Dementia, Hx Developmental Delay, Hx Headaches, Hx Migraine, Hx Nerve Disease, Hx Seizures, Hx Spinal Cord Injury, Hx Transient Ischemic Attacks (TIA) Psychiatric History: Denies: Hx Anxiety, Hx Attention Deficit Hyperactivity Disorder, Hx Eating Disorder, Hx Depression, Hx Panic Disorder, Hx Post Traumatic Stress Disorder, Hx Inpatient Treatment, Hx Community Mental Health Tx, Hx Schizophrenia, Hx Bipolar Disorder, Hx Suicide Attempt, Hx of Violent Episodes Against Others, Hx Substance Abuse, Other Psychiatric Issues/Disorders - Surgical History Surgery Procedure, Year, and Place: CATARACTS; knee, foot surgery during childhood Hx Anesthesia Reactions: No - Immunization History Hx Pertussis Vaccination: No Immunizations Up to Date: Unable to Obtain/Confirm Infectious Disease History: No Infectious Disease History: Denies: Hx Hepatitis, Traveled Outside the [place] in Last 30 Days - Family History Known Family History: Positive: None, Hypertension Family History: R & n/C - Social History Occupation: Unemployed, Retired Lives: With Family Alcohol Use: None Hx Substance Use: No Substance Use Type: Reports: Other Substance Use Comment - Amount & Last Used: chewing tobacco Hx Tobacco Use: No Smoking Status (MU): Never Smoked Tobacco Review of Systems Constitutional: Negative Negative: Fever, Chills, Fatigue Eyes: Negative Cardiovascular: Negative Respiratory: Negative Negative: Abdominal Pain, Vomiting, Nausea Positive: no symptoms reported, see HPI Positive: Arthralgia - left shoulder and left arm pain s/p fall Neurological: Negative All Other Systems Reviewed And Are Negative: Yes Physical Exam Triage Information Reviewed: Yes Vital Signs On Initial Exam: Initial Vitals Temp Pulse Resp BP Pulse Ox 98.3 F 62 17 110/57 98 09/21/17 13:38 09/21/17 13:38 09/21/17 13:38 09/21/17 13:38 09/21/17 13:38 Vital Signs Reviewed: Yes Appearance: Positive: Well-Appearing, Well-Nourished Skin: Positive: Warm, Skin Color Reflects Adequate Perfusion Head/Face: Positive: Normal Head/Face Inspection Eyes: Positive: Normal, CHRISTINA, Conjunctiva Clear Neck: Positive: Supple, No Lymphadenopathy Respiratory/Lung Sounds: Positive: Clear to Auscultation, Breath Sounds Present Cardiovascular: Positive: RRR, Pulses are Symmetrical in both Upper and Lower Extremities Musculoskeletal: Positive: Pain @ - left shoulder and left arm pain s/p fall Neurological: Positive: Sensory/Motor Intact, Alert, Oriented to Person Place, Time, Speech Normal Psychiatric: Positive: Normal, Affect/Mood Appropriate - Anival Coma Scale Coma Scale Total: 15 Diagnostics - Vital Signs Vital Signs Temp Pulse Resp BP Pulse Ox 09/21/17 13:38 98.3 F 62 17 110/57 98 - Laboratory Lab Statement: Any lab studies that have been ordered have been reviewed, and results considered in the medical decision making process. Course/Dx - Course Course Of Treatment: left shoulder and left arm pain s/p fall. IMPRESSION: Mildly comminuted fracture through the clavicle involving the base of the. acromium and coracoid processes as well as the cephalad margin of the glenoid and. extension medially along the scapular spine. Normal acromial clavicular and glenohumeral. joint alignment. Significant cephalad displacement of the glenoid component of the. fracture likely contiguous with the coracoid process results in significant articular. surface discontinuity and incongruity. Called ortho (Dr. Ugalde) who agrees to see patient in his office and advised place patient in sling at this time. He will call tomorrow to Dr. Ugalde office for appt. Treatment options explained to patient. Patient understands the plan, voices no concerns at this time and understands the return precatuions given to them if they develop any worsening or changing symptoms. They are OK for discharge at this time. VS stable on discharge. Primary care follow up as agreed on discharge. Tramadol given for any breakthrough pain. Pulses +2 bilaterally and cap refill < 2 sec. - Diagnoses Provider Diagnoses: Scapular fracture, Clavicle fracture Discharge - Discharge Plan Condition: Stable Disposition: HOME Prescriptions: traMADol TAB* [Ultram*] 50 mg PO Q12H PRN #10 tab MDD 2 PRN Reason: Pain Patient Education Materials: Clavicle Fracture (ED) Referrals: Flor Ty RN [Primary Care Provider] - Kerwin Ugalde MD [Medical Doctor] - Additional Instructions: Dr. Ugalde is expecting your call Please call his office tomorrow morning to make an appt Tell the office Dr. Ugalde advised you see him this week Keep the arm in the sling at all times. Advise ibuprofen or tylenol for any discomfort If you have pain which is not well controlled with tylenol or ibuprofen, I have prescribed you tramadol for breakthrough pain Be careful with this medication as it may make you drowsy.
== END 2017-09-21 16:11 | disposition home or self-care (01) ==
LOC: ED 13:28
DX: S42.002A Fracture of unspecified part of left clavicle, initial encounter for closed fracture (principal); S42.192A Fracture of other part of scapula, left shoulder, initial encounter for closed fracture; W19.XXXA Unspecified fall, initial encounter; Y93.89 Activity, other specified
CPT/HCPCS: 99282

== ENCOUNTER 2017-09-23 11:49 | Observation (INO) | payer MEDICARE ==
[2017-09-23] MEDS ORDERED: oxyCODONE/Acetamin 5/325 MG* TAB PO PRN ×2 (13:14)
[2017-09-23] MEDS ORDERED: Ondansetron INJ* 2 MG/ML VIAL IV PRN (13:14)
[2017-09-23] MEDS ORDERED: diPHENhydraMINE IV* 50 MG/ML 1 ml VIAL (BENADRYL) IV PRN (13:14)
[2017-09-23] MEDS ORDERED: traMADol TAB* 50 MG PO PRN (18:10)
[2017-09-23 19:50] LABS: ABS Basophils 0 10^3/ul (0-0.2); ABS Eosinophils 0.2 10^3/ul (0-0.6); ABS Lymphocytes 0.6 10^3/ul (1.0-4.8); ABS Monocytes 0.7 10^3/ul (0-0.8); ABS Neutrophils 6.9 10^3/ul (1.5-7.7); ABS Nucleated RBC 0 10^3/ul; Eosinophil % 2.1 % (0-6); Hematocrit 22 % (42-52); Hemoglobin 7.5 g/dl (14.0-18.0); Lymphocyte % 7.5 % (25-47); Mean Corpuscular HGB Conc 33 g/dl (31-36); Mean Corpuscular Hemoglobin 27 pg (27-31); Mean Corpuscular Volume 80 fL (80-94); Mean Platelet Volume 7 um3 (7.4-10.4); Nucleated Red Blood Cells % 0; Platelet Count 242 10^3/ul (150-450); Red Cell Distribution Width 20 % (10.5-15); White Blood Count 8.4 10^3/ul (3.5-10.8)
[2017-09-23 19:57] LABS: EGFR Non-African American 21.1 (>60)
[2017-09-23] MEDS: Omeprazole CAP* 20 MG PO SCH (21:04)
[2017-09-23] MEDS: Ferrous Sulfate TAB* 325 MG PO SCH (21:04)
--- NOTE | 2017-09-23 22:18 | CONS ---
CC: Kerwin Ugalde MD HISTORY AND PHYSICAL: DATE OF ADMISSION: 09/23/17 PROVIDER: Kerwin Ugalde MD CHIEF COMPLAINT: Left scapula fracture. HISTORY OF PRESENT ILLNESS: Mr. Moctezuma is an 81-year-old male who was [place] [facility] [facility] [place] with a chief complaint of left shoulder pain from a fall 7 days ago. He was diagnosed with a left scapula fracture including the glenoid and acromion. He was placed in a sling, sent home and asked to follow up with Dr. Ugalde as out-patient. He did follow up with Dr. Ugalde today and it was deemed that he would come back to the hospital for admission as he was having difficulty caring for himself at home. 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 He also lives with his of a similar age. The patient was having much trouble with activities of daily living at home and worried about a fall. His left shoulder is not painful unless he engages in range of motion. PAST MEDICAL HISTORY: 1. Peripheral arterial occlusive disease. 2. Pericardial effusion. 3. Atrial fibrillation. 4. Cardioembolic stroke. 5. Diabetes. 6. Acute kidney injury. 7. Carotid stenosis with cerebral infarction. 8. Hyperlipidemia. 9. Anemia. 10. Chronic kidney disease. 11. Congestive heart failure. PAST SURGICAL HISTORY: 1. Carotid endarterectomy. 2. Cataracts. 3. Foot surgery done in childhood. 4. Knee surgery. MEDICATIONS: Currently being reconciled by nursing with pharmacy. ALLERGIES: COUMADIN and ASPIRIN. SOCIAL HISTORY: Non-smoker, consumes alcohol socially. Does not use drugs. Lives alone with . REVIEW OF SYSTEMS: General: No fevers or chills. HEENT: The patient states he did hit his head when he fell, but no loss of consciousness. No headache. No change in vision. No change in hearing. Cardiac: The patient does see a supervisor correspondence section, he he is unsure of their name. No chest pain and no feeling of irregular beats. Respiratory: No shortness of breath. No coughing. Does not see a special agent group insurance. GI: No nausea, vomiting, or diarrhea. : No dysuria. Musculoskeletal: Left shoulder pain with movement. No other complaints of bone or joint pain. Neuro: Does have a history of stroke. No complaint of numbness, no headache. No tingling. Skin: No lacerations or rashes. PHYSICAL EXAMINATION: GENERAL: Awake and alert, calm and cooperative. HEENT: Hearing is grossly normal. EOMI. No lacerations of the head. Normocephalic, atraumatic. LUNGS: Clear to auscultation bilaterally. CARDIO: S1, S2. Regular rhythm. ABDOMEN: Soft and nontender without guarding, rigidity or masses. MUSCULOSKELETAL: Tenderness over the left acromion. No range of motion of shoulder due to pain. Good range of motion of elbow and wrist. VASCULAR: Radial pulses 2+. SKIN: No rashes, lacerations or bruising noted. IMAGING: Imaging done [place] [facility] [place], impression: Mildly comminuted fracture to the clavicle involving the base of the acromion and coracoid processes as well as the cephalad margin of the glenoid and extension medially along the scapular spine. IMPRESSION: Left glenoid and acromion fracture. PLAN: The patient has been admitted to the hospital for nonoperative treatment. Hospitalist service as well as social workers have been consulted. The patient will likely need short-term rehab. In a couple of weeks, he will need to follow up with Dr. Ugalde for another x-ray. His left arm will remain in a sling. SAMMIE RAO [id number]/CPS #: [id number] MTDD
--- NOTE | 2017-09-24 00:39 | CONS ---
CC: Dr. Ling; Dr. Ugalde; Flor Rondon NP * CONSULTATION REPORT: DATE OF CONSULT: 09/23/17 PRIMARY CARE PROVIDER: Flor Rondon NP REQUESTING PHYSICIAN: Dr. Ugalde. REASON FOR CONSULT: Medical management of the patient with fractured left clavicle. CHIEF COMPLAINT: Frequent falls. The patient also complains of inability to ambulate with his fracture of left clavicle and limitation of range of motion in the left upper extremity due to that. HISTORY OF PRESENT ILLNESS: Mr. Moctezuma is an 81-year-old male with history of chronic iron-deficiency anemia who had been on iron infusions as well as transfusion dependent for the past several months, who was seen in the hospital on 09/21/17 after he had a mechanical fall and fractured his left clavicle. The patient was seen today at Dr. Ugalde' office for followup of his left clavicle and it was noted that the patient is unable to take care of himself and ambulate due to that, that he usually uses a walker and he has limitation of range of motion in the left arm after Dr. Ugalde' recommendation. Dr. Ugalde admitted the patient directly to the hospital due to that. PAST MEDICAL HISTORY: Included: 1. History of gastrointestinal AVM and chronic GI bleed secondary to that. 2. History of iron-deficiency anemia secondary to chronic GI bleed as mentioned above. 3. History of CVA in the past. 4. History of atrial fibrillation, on anticoagulation due to bleeding as before. 5. History of diabetes type 2, diet controlled. 6. Hypertension. 7. Dyslipidemia. 8. Gastroesophageal reflux disease. 9. History of peripheral arterial disease, status post carotid stenosis, status post endarterectomy. MEDICATIONS: 1. Ferrous sulfate 325 mg b.i.d. 2. Omeprazole 20 mg b.i.d. 3. Crestor 40 mg daily. 4. Zoloft 75 mg daily. 5. Metamucil on a p.r.n. basis. 6. Amlodipine 2.5 mg daily. 7. Potassium chloride 20 mEq daily. 8. Torsemide 60 mg daily. ALLERGIES: Include no known drug allergies. FAMILY HISTORY: Positive for father with prostate cancer and sister with throat cancer. Another sister with colon cancer. The patient's daughter had a history of breast cancer. SOCIAL HISTORY: The patient lives with his . 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 He uses alcohol rarely. He denies any tobacco or drug use. His surrogate decision making person is his . REVIEW OF SYSTEMS: Please see history of present illness. All the remaining 12 systems were reviewed with the patient and were otherwise negative. PHYSICAL EXAM: Blood pressure of 110/46, heart rate of 61 and regular, respiratory rate of 16, oxygen saturation 99% on room air, and temperature 96.5. General Appearance: This is a very pleasant 81-year-old male who is in no acute distress. Alert and awake and oriented x3. HEENT: Head is atraumatic and normocephalic. Eyes: Pupils are equal, round, and reactive to light and accommodation. Oropharynx clear. Mucosa moist. Neck supple. No JVD, no bruits bilaterally. Cardiovascular: Irregularly irregular rhythm. No murmur. Respiratory: Clear to auscultation bilaterally. Abdomen: Soft and nontender. Bowel sounds present in all 4 quadrants. Extremities: There is trace bilateral pedal edema. Pulses are +2 bilaterally. There is no clubbing or cyanosis. Neuro evaluation: Speech clear. Cranial nerves II through XII grossly intact. Motor strength is 5/5 bilaterally. Please also note that the patient's left arm is in a sling and there is tenderness to palpation on palpation of the left clavicle. On evaluation of the skin, no rashes or lesions noted. LABORATORY DATA: Not obtained yet. ASSESSMENT AND PLAN: 1. Mr. Moctezuma is an 81-year-old male who presents after a mechanical fall with left clavicular fracture. Due to that he was ambulating with a walker in the past and now he has been unable to do so. The patient is being admitted by the orthopedic service. Social work, physical therapy, as well as occupational therapy were already placed as orders. Likely he will require short-term rehabilitation. 2. In regards to the patient's history of chronic atrial fibrillation, the patient is not anticoagulated due to history of chronic GI bleed due to arteriovenous malformations. His amlodipine is going to be continued for blood pressure control. The patient's heart rate had been controlled so far. He used to be on metoprolol, but that had been stopped. 3. In regards to the patient's iron-deficiency anemia, his iron is going to be continued and CBC is going to be obtained. 4. For DVT prophylaxis, due to history of chronic GI bleed, the patient is going to be placed on sequential compression devices only. 5. In regards to the patient's code status, the patient is considering do not resuscitate and he is right now evaluating MOLST and will reconfirm that in the future if he decides to sign it. 6. For history of gastritis and gastroesophageal reflux disease, his omeprazole is going to be continued. 7. The patient's diabetes is diet controlled. The patient is already placed on a diabetic diet currently, which is going to be continued. I do not believe there was a need for continuation of insulin sliding scale at this point. TIME SPENT: Approximately 60 minutes were spent on consultation of this patient , more than half that time was spent [id number] with the patient during the interview and physical exam. Thank you very much for allowing me to see your patient in consultation. We will follow on a daily basis. [id number]/CPS #: [id number] MTDD
[2017-09-24] MEDS: Omeprazole CAP* 20 MG PO SCH ×2 (09:32→20:02)
[2017-09-24] MEDS: Ferrous Sulfate TAB* 325 MG PO SCH ×2 (09:32→20:02)
[2017-09-24] MEDS: Potassium Chlor TAB* 20 MEQ TAB.ER PO SCH (09:32)
[2017-09-24] MEDS: Torsemide TAB* 20 MG PO SCH (09:32)
[2017-09-24] MEDS: Sertraline* 25 MG TAB PO SCH (09:32)
--- NOTE | 2017-09-24 14:21 | PN ---
Progress Note - Progress Note Date of Service: 09/24/17 SOAP: Subjective: []Patient seen at bedside. He feels well and has no left shoulder pain unless he moves it. Objective: [] Vital Signs Temp 97.4 F 09/24/17 12:26 Pulse 51 09/24/17 12:26 Resp 16 09/24/17 12:26 BP 107/43 09/24/17 12:26 Pulse Ox 98 09/24/17 12:26 Intake & Output 09/23/17 09/24/17 09/24/17 18:59 06:59 18:59 Intake Total 590 135 970 Output Total 400 500 200 Balance 190 -365 770 Weight 192 lb 4.8 oz 188 lb 9.6 oz Intake: IV Fluids 15 NS (0.9%) 15 Oral 590 120 970 Output: Urine 400 500 200 Other: Estimated Void Medium Small # Bowel Movements 1 0 Estimated Stool Amount Medium # Voids 1 1 Laboratory Last Values WBC 8.4 10^3/ul (3.5-10.8) 09/23/17 19:37 RBC 2.80 10^6/ul (4.0-5.4) L 09/23/17 19:37 Hgb 7.5 g/dl (14.0-18.0) L 09/23/17 19:37 Hct 22 % (42-52) L 09/23/17 19:37 MCV 80 fL (80-94) 09/23/17 19:37 MCH 27 pg (27-31) 09/23/17 19:37 MCHC 33 g/dl (31-36) 09/23/17 19:37 RDW 20 % (10.5-15) H 09/23/17 19:37 Plt Count 242 10^3/ul (150-450) 09/23/17 19:37 MPV 7 um3 (7.4-10.4) L 09/23/17 19:37 Neut % (Auto) 82.0 % (38-83) 09/23/17 19:37 Lymph % (Auto) 7.5 % (25-47) L 09/23/17 19:37 Glades % (Auto) 8.3 % (1-9) 09/23/17 19:37 Eos % (Auto) 2.1 % (0-6) 09/23/17 19:37 Baso % (Auto) 0.1 % (0-2) 09/23/17 19:37 Absolute Neuts (auto) 6.9 10^3/ul (1.5-7.7) 09/23/17 19:37 Absolute Lymphs (auto) 0.6 10^3/ul (1.0-4.8) L 09/23/17 19:37 Absolute Monos (auto) 0.7 10^3/ul (0-0.8) 09/23/17 19:37 Absolute Eos (auto) 0.2 10^3/ul (0-0.6) 09/23/17 19:37 Absolute Basos (auto) 0 10^3/ul (0-0.2) 09/23/17 19:37 Absolute Nucleated RBC 0 10^3/ul 09/23/17 19:37 Nucleated RBC % 0 09/23/17 19:37 Sodium 134 mmol/L (133-145) 09/23/17 19:37 Potassium 3.6 mmol/L (3.5-5.0) 09/23/17 19:37 Chloride 93 mmol/L (101-111) L 09/23/17 19:37 Carbon Dioxide 31 mmol/L (22-32) 09/23/17 19:37 Anion Gap 10 mmol/L (2-11) 09/23/17 19:37 BUN 67 mg/dL (6-24) H 09/23/17 19:37 Creatinine 2.87 mg/dL (0.67-1.17) H 09/23/17 19:37 Est GFR ( Amer) 27.2 (>60) 09/23/17 19:37 Est GFR (Non-Af Amer) 21.1 (>60) 09/23/17 19:37 BUN/Creatinine Ratio 23.3 (8-20) H 09/23/17 19:37 Glucose 155 mg/dL (70-100) H 09/23/17 19:37 Calcium 8.5 mg/dL (8.6-10.3) L 09/23/17 19:37 Total Bilirubin 0.50 mg/dL (0.2-1.0) 09/23/17 19:37 AST 17 U/L (13-39) 09/23/17 19:37 ALT 10 U/L (7-52) 09/23/17 19:37 Alkaline Phosphatase 105 U/L (34-104) H 09/23/17 19:37 Total Protein 7.1 g/dL (6.4-8.9) 09/23/17 19:37 Albumin 3.1 g/dL (3.2-5.2) L 09/23/17 19:37 Globulin 4.0 g/dL (2-4) 09/23/17 19:37 Albumin/Globulin Ratio 0.8 (1-3) L 09/23/17 19:37 Blood Type O Positive 09/23/17 19:37 Antibody Screen Negative 09/23/17 19:37 Crossmatch See Detail 09/23/17 19:37 General: Well appearing, NAD. Calm and cooperative LUE: Sling in place. Left wrist and hand with good ROM. Brisk capillary refill and sensation intact to light touch distally. Tender over the left acromion. No skin breakdown. Assessment: []Left glenoid and acromion fracture Plan: []Nonoperative L arm to be left in sling Will need rehab at [place]
--- NOTE | 2017-09-24 14:22 | PN ---
Subjective Date of Service: 09/24/17 Interval History: Pt feels well, forgetful today. no complaints Objective Active Medications: Acetaminophen (Tylenol Tab*) 650 mg PO Q6H PRN PRN Reason: pain and temp Diphenhydramine HCl (Benadryl Iv*) 12.5 mg IV Q6H PRN PRN Reason: PRURITIS Ferrous Sulfate (Ferrous Sulfate Tab*) 325 mg PO BID [facility] Last Admin: 09/24/17 09:32 Dose: 325 mg Omeprazole (Prilosec Cap*) 20 mg PO BID [facility] Last Admin: 09/24/17 09:32 Dose: 20 mg Ondansetron HCl (Zofran Inj*) 4 mg IV Q6H PRN PRN Reason: NAUSEA Oxycodone/Acetaminophen (Percocet 5/325 Tab*) 1 tab PO Q3H PRN PRN Reason: PAIN - MODERATE Oxycodone/Acetaminophen (Percocet 5/325 Tab*) 2 tab PO Q3H PRN PRN Reason: PAIN - SEVERE Potassium Chloride (Klor Con Er Tab*) 20 meq PO DAILY WITH MEAL [facility] Last Admin: 09/24/17 09:32 Dose: 20 meq Sertraline HCl (Zoloft*) 75 mg PO DAILY [facility] Last Admin: 09/24/17 09:32 Dose: 75 mg Torsemide (Demadex*) 60 mg PO DAILY [facility] Last Admin: 09/24/17 09:32 Dose: 60 mg Tramadol HCl (Ultram*) 50 mg PO Q12H PRN PRN Reason: PAIN Last Admin: 09/23/17 21:04 Dose: 50 mg Vital Signs - 8 hr 09/24/17 09/24/17 09/24/17 07:09 11:18 12:26 Temperature 97.4 F 97.2 F 97.4 F Pulse Rate 153 53 51 Respiratory 16 16 16 Rate Blood Pressure 102/55 100/46 107/43 (mmHg) O2 Sat by Pulse 96 100 98 Oximetry Oxygen Devices in Use Now: None Appearance: 81 yo M in nAD, AAOx3, [place], forgetful, but oriented Eyes: No Scleral Icterus, PERRLA Ears/Nose/Mouth/Throat: NL Teeth, Lips, Gums, Mucous Membranes Moist Neck: NL Appearance and Movements; NL JVP, Trachea Midline Respiratory: Symmetrical Chest Expansion and Respiratory Effort, Clear to Auscultation Cardiovascular: - - irregular Abdominal: NL Sounds; No Tenderness; No Distention, No Hepatosplenomegaly Lymphatic: No Cervical Adenopathy Extremities: No Edema, No Clubbing, Cyanosis Skin: No Rash or Ulcers, No Nodules or Sclerosis Neurological: Alert and Oriented x 3 Result Diagrams: 09/23/17 19:37 09/23/17 19:37 Assess/Plan/Problems-Billing Assessment: Mr Moctezuma is an 81 yo M who has a h/o afib , past CVA, HTN, DM and HLD , CHF and anemia secondary AVM's and chronic upper GI bleed requiring intermittent transfusions who was seen for outpatient f/u with Dr. Ugalde after a fall and left scapula fx and was directly [place] [facility] [place] due to inability to ambulate - Patient Problems (1) Scapula fracture Comment: On left, pt it to wear a sling on left arm. will need STR Pt is left hand dominant (2) CKD (chronic kidney disease) stage 4, GFR 15-29 ml/min Comment: At his baseline. (3) CHF (congestive heart failure) Comment: EF 65% in , currently euvolemic cont Torsemide (4) Anemia Comment: Due to AVM's cont PPI will order 1 U PRBC transfusion due to chronic , recurrent anemia requiring transfusions in the past Hb baseline at 8-9 (5) Atrial fibrillation Comment: chronic (6) DVT prophylaxis Comment: SCD's, no pharmacologic prophylaxis due to chronic GI bleed Status and Disposition: OBV
[2017-09-25] MEDS: Acetaminophen TAB* 325 MG PO PRN ×2 (03:16→14:22)
[2017-09-25] MEDS: Sertraline* 25 MG TAB PO SCH (08:23)
[2017-09-25] MEDS: Omeprazole CAP* 20 MG PO SCH (08:23)
[2017-09-25] MEDS: Torsemide TAB* 20 MG PO SCH (08:23)
[2017-09-25] MEDS: Potassium Chlor TAB* 20 MEQ TAB.ER PO SCH (08:24)
[2017-09-25] MEDS: Ferrous Sulfate TAB* 325 MG PO SCH (08:24)
[2017-09-25 12:09] VITALS: BP 115/61
--- NOTE | 2017-09-25 12:18 | DS ---
CC: Flor Rondon NP; Dr. Ling; Dr. Ugalde * DISCHARGE SUMMARY: DATE OF ADMISSION: 09/23/17 DATE OF DISCHARGE: 09/25/17 PRIMARY CARE PROVIDER: Flor Rondon NP DISCHARGE DIAGNOSIS: History of frequent falls, status post recent fall with subsequent left scapular fracture. The patient was a direct admission to the hospital due to inability to ambulate. SECONDARY DIAGNOSES: 1. 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 The patient did receive 1 unit of packed red blood cell transfusion during his hospital stay. The patient has a history of multiple blood transfusions in the past. 2. History of iron-deficiency anemia secondary to the above mentioned. 3. History of cerebrovascular accident in the past. 4. History of chronic atrial fibrillation, not anticoagulated due to bleeding as noted above. 5. History of diabetes type 2, diet controlled. 6. Hypertension. 7. Dyslipidemia. 8. Gastroesophageal reflux disease. 9. History of peripheral arterial disease, status post endarterectomy of carotid stenosis. MEDICATIONS AT DISCHARGE: Are unchanged from admission, include: 1. Ferrous sulfate 325 mg b.i.d. 2. Omeprazole 20 mg b.i.d. 3. Crestor 40 mg daily. 4. Zoloft 75 mg daily. 5. Metamucil on a p.r.n. basis. 6. Amlodipine 2.5 mg daily. 7. Potassium chloride 20 mEq daily. 8. Torsemide 60 mg daily. At discharge, the patient is recommended to ambulate with assistance. His left arm is supposed to be in sling. He can do full range of motion, but no weightbearing on the left arm. At discharge, the patient is recommended to follow up with Dr. Ugalde in approximately 1 to 2 weeks from Orthopedic Surgery. PHYSICAL EXAMINATION AT THE TIME OF DISCHARGE: Blood pressure of 107/62, heart rate of 83 and irregularly irregular, respiratory rate 16, oxygen saturation ___ __% on room air, temperature 97.2. General: The patient is a pleasant 81-year- old male, who is in no acute distress. The patient is alert, awake, and oriented x3, rather forgetful though. HEENT: Head atraumatic, normocephalic. Eyes: Pupils are equal, round, and reactive to light and accommodation. Oropharynx clear. Mucosa moist. Neck: Supple. No JVD, no bruits bilaterally. Cardiovascular: Irregularly irregular rhythm. No murmur. Respiratory: Clear to auscultation bilaterally. Abdomen: Soft, nontender. Bowel sounds present in all 4 quadrants. Extremities: There is no edema. Pulses are +2 bilaterally. No clubbing or cyanosis. Left arm is in a sling. On evaluation of the skin, the patient has couple of abrasions and lacerations on his bilateral forearms. No other lesions noted. Neuro Evaluation: Speech clear. Cranial nerves II through XII grossly intact. Motor strength is 5/5 bilaterally. DISCHARGE INSTRUCTIONS: Please also note that at discharge, the patient is recommended to have CBC withdrawn every 2 weeks for followup of his chronic anemia and possibility of need of further transfusions. Please note that this is a short summary of the patient's hospital stay, please refer to further medical records for details. TIME SPENT: Approximately 40 minutes was spent on the patient's discharge. [id number] #: [id number] JUDI
== END 2017-09-25 15:35 ==
LOC: INTOOBSV 12:04 → MED 12:04
PROVIDERS: ADMIT Orthopaedic Surgery Hand Surgery; ATTEND Internal Medicine
PROC: 30230N1 Transfusion of Nonautologous Red Blood Cells into Peripheral Vein, Open Approach (ICD-10-PCS; principal; 2017-09-24)
DX: S42.142A Displaced fracture of glenoid cavity of scapula, left shoulder, initial encounter for closed fracture (principal); S42.122A Displaced fracture of acromial process, left shoulder, initial encounter for closed fracture; W18.30XA Fall on same level, unspecified, initial encounter; Y92.9 Unspecified place or not applicable; K92.2 Gastrointestinal hemorrhage, unspecified; Q27.33 Arteriovenous malformation of digestive system vessel; D50.0 Iron deficiency anemia secondary to blood loss (chronic); Z86.73 Personal history of transient ischemic attack (TIA), and cerebral infarction without residual deficits; I48.91 Unspecified atrial fibrillation; E11.9 Type 2 diabetes mellitus without complications; E78.5 Hyperlipidemia, unspecified; K21.9 Gastro-esophageal reflux disease without esophagitis; Z79.899 Other long term (current) drug therapy; Z88.8 Allergy status to other drugs, medicaments and biological substances; I13.0 Hypertensive heart and chronic kidney disease with heart failure and stage 1 through stage 4 chronic kidney disease, or unspecified chronic kidney disease; E11.22 Type 2 diabetes mellitus with diabetic chronic kidney disease; N18.4 Chronic kidney disease, stage 4 (severe); I50.9 Heart failure, unspecified; Z91.81 History of falling
CPT/HCPCS: 36415; 80053; 85025; 86850; 86900; 86901; 86922; A9270-GY; G0378; G8987-GO-CM; G8988-GO-CJ; P9040

== ENCOUNTER 2017-10-19 09:43 | Inpatient (IN) | payer MEDICARE ==
[2017-10-19] MEDS ORDERED: NS 0.9% 1000 ML* 1,000 ML IV ONE (09:58)
--- NOTE | 2017-10-19 10:20 | RAD ---
HISTORY: Right facial droop COMPARISONS: August 02, 2015 TECHNIQUE: Multiple contiguous axial CT scans were obtained of the head without intravenous contrast. FINDINGS: HEMORRHAGE/INFARCT: There is hypoattenuation with loss of soto-white differentiation of the left inferior frontal lobe extending to the frontal vallecula and anterior insula best seen on axial image 13 consistent with subacute hemorrhagic infarct, new from the previous examination. Elsewhere, there is no hemorrhage or acute infarct. MASSES/SHIFT: There is no mass or shift. EXTRA-AXIAL SPACES: There are no extra-axial fluid collections. SULCI AND VENTRICLES: There is diffuse and proportional enlargement of the sulci and ventricles. CEREBRUM: As noted above, there is loss of soto-white differentiation of the left inferior frontal lobe and frontal operculum and anterior insula consistent with subacute hemorrhagic infarct. There is encephalomalacia consistent with remote infarct of the right posterior frontal and anterior parietal lobe and of the left precentral gyrus, stable. There is a chronic lacunar infarct of the left basal ganglia. BRAINSTEM: There are no focal parenchymal abnormalities. CEREBELLUM: There are no focal parenchymal abnormalities. VESSELS: The vessels are grossly normal. PARANASAL SINUSES: The paranasal sinuses are clear. ORBITS: The orbits are unremarkable. BONES AND SOFT TISSUE: No bone or soft tissue abnormalities are noted. OTHER: None IMPRESSION: 1. SUBACUTE NONHEMORRHAGIC INFARCT OF THE LEFT INFERIOR FRONTAL LOBE AND ANTERIOR INSULA AND FRONTAL OPERCULUM. 2. MULTIFOCAL NONACUTE INFARCTS. 3. PRELIMINARY FINDINGS WERE DISCUSSED WITH DR. LI IN THE EMERGENCY DEPARTMENT AT APPROXIMATELY 10 15 A.M. ON OCTOBER 19, 2017.
[2017-10-19 10:46] LABS: EGFR Non-African American 40.9 (>60)
[2017-10-19 10:53] LABS: ABS Basophils 0.1 10^3/ul (0-0.2); ABS Eosinophils 0.1 10^3/ul (0-0.6); ABS Lymphocytes 0.4 10^3/ul (1.0-4.8); ABS Monocytes 0.6 10^3/ul (0-0.8); ABS Neutrophils 6.8 10^3/ul (1.5-7.7); ABS Nucleated RBC 0 10^3/ul; Eosinophil % 1.5 % (0-6); Hematocrit 24 % (42-52); Hemoglobin 7.8 g/dl (14.0-18.0); Mean Corpuscular HGB Conc 32 g/dl (31-36); Mean Corpuscular Hemoglobin 27 pg (27-31); Mean Corpuscular Volume 84 fL (80-94); Mean Platelet Volume 6 um3 (7.4-10.4); Nucleated Red Blood Cells % 0; Platelet Count 323 10^3/ul (150-450); Red Blood Count 2.87 10^6/ul (4.0-5.4); Red Cell Distribution Width 22 % (10.5-15)
[2017-10-19 11:00] LABS: INR 1.1 (0.77-1.02)
--- NOTE | 2017-10-19 11:03 | RAD ---
HISTORY: Neurological changes COMPARISONS: August 06, 2016 VIEWS: 1: frontal portable view of the chest at 10:25 AM FINDINGS: LINES AND TUBES: None. CARDIOMEDIASTINAL SILHOUETTE: The cardiomediastinal silhouette is normal for portable technique. PLEURA: There is a moderate right and small left pleural effusion. LUNG PARENCHYMA: There is patchy alveolar opacities in the lung bases bilaterally. There is prominence of the central pulmonary vasculature. ABDOMEN: The upper abdomen is clear. There is no subphrenic gas. BONES AND SOFT TISSUES: Degenerative changes are noted. IMPRESSION: 1. RIGHT GREATER THAN LEFT BILATERAL PLEURAL EFFUSIONS WITH BIBASILAR ATELECTASIS VERSUS CONSOLIDATION. 2. PULMONARY VASCULAR CONGESTION.
[2017-10-19] MEDS ORDERED: Albuterol/Ipratropium NEB.SOL* Albuterol 2.5 MG/Ipratropium 0.5 MG 3 ML INH PRN (11:42)
--- NOTE | 2017-10-19 13:30 | CONS ---
NEUROLOGY CONSULTATION: DATE OF CONSULT: 10/19/17 LOCATION: The patient is in the emergency room. REFERRING PHYSICIAN: Dr. Hunt. REASON FOR CONSULT: Code Spicer. HISTORY OF PRESENT ILLNESS: Dejan Moctezuma is an 81-year-old left-handed man with a history of atrial fibrillation, not on anticoagulation secondary to chronic GI bleeding thought to be related to small AVMs as well as a history of right hemispheric stroke in 2014 and subsequent right carotid endarterectomy, chronic anemia, type 2 diabetes, hypertension, and hyperlipidemia, who presents to the ER this morning from [facility] with new onset of right facial weakness and confusion. EMS reported to Dr. Hunt that the onset of these symptoms was approximately an hour prior to his presentation. The patient's son is also at the bedside, who saw the patient yesterday around lunchtime and states that he was as good as he has seen him in quite a while. The patient is currently residing in [place] after suffering a fractured left scapula at the beginning of this month secondary to a mechanical fall. His son reports that he does have some memory difficulties at baseline. At baseline, he was ambulating with a walker prior to his left scapular fracture. He has been off anticoagulation since February of 2017 secondary to this chronic anemia which is thought to be due to chronic GI bleed and he has been transfusion dependent. He is also not on aspirin, presumably for the same reasons. His code status is noted to be DNR and his son indicates that he has expressed that he does not want anything extraordinary done for him. Neurology consultation is requested secondary to the possibility of new- onset acute stroke. Of note, the patient was recently diagnosed with a pneumonia and was placed on Zithromax. His home medication list also seems to indicate he is on ceftriaxone. PAST MEDICAL HISTORY: 1. Recent left scapular fracture secondary to mechanical fall. 2. History of gastrointestinal AVMs and chronic GI bleeding secondary to that. 3. Chronic anemia thought to be secondary to chronic blood loss. 4. History of right hemispheric stroke involving the right parietal, occipital , and frontal lobes in July of 2015. This was associated with right carotid stenosis of 80% to 90% and he subsequently had a right carotid endarterectomy. 5. Atrial fibrillation, not on anticoagulation, secondary to chronic GI bleeding. 6. Type 2 diabetes, diet controlled. 7. Hypertension. 8. Hyperlipidemia. 9. GERD. 10. Peripheral vascular disease. MEDICATIONS: Current list may not reflect all of his current medications as I cannot locate his medication list presently from [place]. 1. Guaifenesin 30 mL twice daily. 2. Amlodipine 2.5 mg daily. 3. Sertraline 100 mg daily. 4. Omeprazole 40 mg twice daily. 5. Bengay twice daily. 6. Melatonin 2 mg at bedtime. 7. Iron 325 mg twice daily. 8. Vitamin D 50,000 units once weekly on Fridays. 9. Vitamin C 500 mg twice daily. 10. DuoNeb twice daily as well as p.r.n. 11. Extra Strength Tylenol 1000 mg q.8 p.r.n. 12. Zithromax. ALLERGIES: ASPIRIN and WARFARIN. FAMILY HISTORY: Father had prostate cancer and sister had throat cancer. Another sister had colon cancer and the patient's daughter had a history of breast cancer. SOCIAL HISTORY: He currently resides at [facility] after his scapular fracture, but previously lived with his at home and ambulated with a walker. 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 He denies any current tobacco or drug use per the record and uses alcohol rarely. REVIEW OF SYSTEMS: Not obtainable from the patient at this time secondary to language difficulties. PHYSICAL EXAM: Vital Signs: Temperature 97.5, blood pressure 147/73 but initially measured at 160/116, heart rate 88 and irregular, and O2 saturation was initially documented at 94% and then at 82% at 10 a.m. and oxygen was applied. On general examination, the patient is sitting up in the hospital stretcher, fully alert. He does not have any spontaneous speech. He appears to have some petechia on the right of his tongue. He is edentulous. His heart is in irregular rate and rhythm. His lungs are coarse anteriorly and he has a wet- sounding cough. There is no significant extremity edema. There is no significant joint swelling or erythema. He has resolving ecchymosis over his left shoulder, presumably related to his recent scapular fracture. On neurologic examination, he was able to state his last name and was able to call a pen a pencil, but otherwise is not able to name his son, who is in the room, was not able to give me his age or date of or the current month. When presented with the stroke cards, he was not able to name objects and when asked to point to objects, he did so incorrectly. He was able to read mama off the stroke cards, but not any of the other phrases. He does follow commands relatively well, however. On cranial nerve examination, his versions are full without any nystagmus and there is no gaze preference. His visual [place] appear to show potential right field loss with decreased blink to threat in the upper and lower quadrants on that side. His facial musculature is notable for a right lower facial droop, but decent activation with smile. His eye closure is full and symmetric. He is unable to wrinkle his forehead on either side, possibly secondary to understanding. Sensation in his face was difficult to test with pin and corneals were not attempted at this time. Hearing appears to be intact to voice. The tongue is midline. On motor examination, he had antigravity strength in all 4 extremities. He withdrew to noxious stimulation in all 4 extremities. [id number]-[id number] testing did not show any obvious ataxia. Both of his toes appear to be upgoing. He was not ambulated at this time secondary to the acuity. DIAGNOSTIC STUDIES/LAB DATA: CBC is not yet available today. His CMP shows a BUN of 26, creatinine of 1.62 which is improved from 2.87 on 09/23/17. GFR is 40.9 and he has a slightly low chloride of 99. Calcium 8.4. Troponin 0.05. Liver functions are within normal aside from the slightly low ALT. Albumin is low at 3.1. Presumably nonfasting lipid panel shows triglycerides 94, cholesterol 113, LDL of 60, and HDL of 34.6. His noncontrast head CT was personally reviewed and compared to the study last done in July of 2015. There appears to be an area of probable subacute infarction in the left frontal lobe as well as possibly a small area over the left precentral gyrus. In addition, there may be an additional area of hypodensity in the right hemisphere in the posterior frontal lobe, but it is unclear if this is just additional encephalomalacia evident since his right hemispheric stroke in July of 2015. IMPRESSION AND PLAN: Dejan Moctezuma is an 81-year-old man with a past history of stroke as well as atrial fibrillation, not on anticoagulation secondary to chronic anemia related to chronic gastrointestinal bleeding, who [facility] with new expressive aphasia as well as right facial weakness. He has most likely had a partial left middle cerebral artery stroke, which is probably cardioembolic in nature. However, he also does have a history of carotid disease and it appears that his carotids have not been looked at since 2016. He is not a candidate for tPA secondary to his chronic anemia secondary to gastrointestinal bleeding related to arteriovenous malformations as well as the presence of the subacute strokes on CT scan. He will be admitted to the hospital for stroke workup, which will include MRI scan of the brain to see whether these strokes are most likely cardioembolic in nature or not. We will also obtain a carotid ultrasound. I do not think that we need to pursue a CT angiogram at this point if it is not likely to change his management. He is already to known to have atrial fibrillation, so telemetry monitoring in that sense will also not knife changer as he is not a good candidate for anticoagulation at this point. We will also, for now, hold off on giving him aspirin until we have a chance to speak with his family more regarding the risks and benefits of that as it seems that he has also not tolerated aspirin in the past secondary to his chronic gastrointestinal bleeding. We will recheck his hemoglobin A1c as well as fasting lipid profile. I noted that his home medication list, as in the computer, does not mention a statin, but this needs to be verified on his list from the prison. I will follow the patient during his hospitalization. [id number]/[facility] #: [id number] JUDI
[2017-10-19] MEDS: Ferrous Sulfate TAB* 325 MG PO SCH ×2 (13:52→21:13)
[2017-10-19] MEDS: Torsemide TAB* 20 MG PO SCH (13:52)
[2017-10-19] MEDS: Sertraline* 100 MG TAB PO SCH (13:52)
[2017-10-19] MEDS: Omeprazole CAP* 20 MG PO SCH ×2 (13:53→21:13)
[2017-10-19] MEDS: amLODIPine TAB* 5 MG PO SCH (13:53)
--- NOTE | 2017-10-19 14:37 | HP ---
HISTORY AND PHYSICAL: DATE OF ADMISSION: 10/19/17 ADMITTING PROVIDER: Jesu Wei MD PRIMARY CARE PHYSICIAN: Formerly Flor Rondon NP, though has now recently retired, does not reestablish care. CHIEF COMPLAINT: Right facial droop, confusion. HISTORY OF PRESENT ILLNESS: Mr. Moctezuma is a 81-year-old male with past medical history right MCA CVA prior to 2014; pdt-qllnbxb-miqatnkdy diabetes mellitus; atrial fibrillation, on no anticoagulation secondary to consistent iron deficiency anemia and duodenal AV malformations; hypertension; hyperlipidemia, recently stopped off Crestor; GERD; gastritis; right carotid stenosis, status post endarterectomy who was recently discharged from this facility with a left scapular fracture admitted 09/23/17 to 09/25/17. He was rehabilitating at [facility] when he was noted to have a right facial droop around 8:20 this morning and resultant confusion. He was presented to [facility] via ambulance for concern for stroke. He recently had been diagnosed with pneumonia over there and got ceftriaxone on 10/12/17 one dose and 5 doses of Z- Azam, stopped last dose 10/17/17. In the emergency room, he was found to have subacute nonhemorrhagic infarct in the left anterior frontal lobe, anterior insula and frontal operculum, multifocal nonacute infarcts. Dr. Allyssa March of Neurology was consulted and patient was referred to the hospitalist service for admission. He is oriented to person and date of , but not year, unable to give a clear history, though following all commands and has good strength in his 4 extremities, but prominent right-sided facial droop. No reported chills or fevers. The patient is quite limited in his history. His son visited him the day prior. CONTINUATION ADDENDUM: PAST MEDICAL HISTORY: Includes: 1. CVA. 2. Carotid stenosis, status post endarterectomy. 3. Noninsulin-dependent diabetes mellitus. 4. 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 5. Hypertension. 6. Hyperlipidemia. 7. GERD. MEDICATIONS: Include: 1. Torsemide 40 mg daily. 2. Sertraline 100 mg p.o. daily. 3. Omeprazole 40 mg p.o. b.i.d. 4. Ascorbic acid 500 mg p.o. b.i.d. 5. Bengay topical b.i.d. 6. Melatonin 3 mg p.o. q.h.s. 7. Ferrous sulfate 325 mg p.o. b.i.d. 8. Albuterol nebulizer q.6 hours p.r.n. 9. Robitussin 30 mL p.o. b.i.d. 10. Cholecalciferol 50,000 units p.o. weekly on Fridays. 11. Amlodipine 2.5 mg p.o. daily. 12. Acetaminophen 1000 mg p.o. q.8 hours p.r.n. Of note - recently had been stopped off Crestor 40 mg daily 1 week prior to admission. Also, had recently completed 5 days azithromycin course, last . ALLERGIES: No known drug allergies. SOCIAL HISTORY: The patient is a never smoker, but had 40 to 50 years of chewing tobacco use. No significant alcohol or drug use. Lives with his prior to recent admission, Katelin and had been using a walker at baseline prior. FAMILY HISTORY: Father with CVA and prostate cancer. Mother with hypertension. REVIEW OF SYSTEMS: The patient is a very poor historian. Denies any fevers, chills. Does have gurgling quality of his voice ever since diagnosed with pneumonia about 1 week prior. Otherwise, as per HPI. PHYSICAL EXAMINATION GENERAL APPEARANCE: No acute distress. Sitting in the hospital bed. VITAL SIGNS: Initially, blood pressure 160/116, currently 123/75; temperature 98.3; pulse rate 90; respiratory rate 20; satting 100% on 3 L nasal cannula, initial saturations documented as 94%, then dipping down to 68% on room air. HEENT: Normocephalic, atraumatic. Pupils equally round and reactive to light. Extraocular motions intact. No scleral icterus. No oropharynx lesions. NECK: Supple. PULMONARY: The patient with rhonchi at the right middle lung field and decreased breath sounds on bilateral bases. No wheezing appreciated. CARDIOVASCULAR: Irregularly irregular rate. No murmurs, rubs, or gallops. ABDOMEN: Soft, nontender, nondistended. No peritoneal signs. No guarding, no rebound, no Lepe's sign. EXTREMITIES: 1+ edema bilaterally. SKIN: No lesions, no rashes. NEURO: [employer] strength 5/5 bilaterally. Right hip flexion 5/5, left 5-/5, prominent right facial droop. Cranial nerves II through XII otherwise grossly intact with some word finding difficulty perhaps. DIAGNOSTIC STUDIES/LAB DATA: White count 8.0, hemoglobin 7.8, hematocrit 24, platelets 323. INR 1.10. Sodium 137, potassium 3.9, chloride 99, carbon dioxide 29, BUN 26, creatinine 1.62, lactic acid 1.4, glucose 124. AST 14, ALT 6, alk phos 98. Troponin 0.05. BNP 228. LDL 60, HDL 35. Chest x-ray demonstrated right greater than left bilateral pleural effusions with bibasilar atelectasis versus consolidation, pulmonary vascular congestion. EKG demonstrated atrial fibrillation, heart rate 86, poor R-wave progression, no ST elevations, depressions, flat T-waves in V1 and V2. ASSESSMENT AND PLAN: Mr. Moctezuma is an 81-year-old male with past medical history of atrial fibrillation, on no anticoagulation given significant gastrointestinal bleeding history, chronic iron deficiency anemia requiring multiple blood transfusions, presenting with subacute stroke. Appreciate Neurology recommendations. We will get a carotid ultrasound bilaterally. He has a history of right endarterectomy. He is not a tPA candidate given his gastrointestinal bleeding. We will hold his aspirin as he did not tolerate it in the past. Repeat a fasting lipid panel. He just had A1c less than 2 weeks ago, which showed 5.8. We will continue neuro checks. Likely not a candidate for anticoagulation or antiplatelet therapy, so difficult management as said already. For his volume overload and hypoxic respiratory failure, we will continue his torsemide 40 mg daily and he notably seemed to get worse after 1 L fluid in the ED. He may have a component of diastolic dysfunction and last echo was in July 2015 with preserved ejection fraction of 65% and moderate pulmonary hypertension. Will get another echo to rule out thrombus, get a sense of his current systolic and diastolic dysfunction, any valvular abnormalities, and pulmonary hypertension status. May need additional IV diuretics. His BNP was slightly elevated to 228 down from May. It is unclear if that was before or after the IV fluids. We will get a procalcitonin and sputum culture given this recent history of pneumonia that was treated with ceftriaxone and then 5 days of azithromycin and a chest x-ray, which is difficult to exclude additional infiltrates. Get Strep urine and Legionella urine antigen and put empirically on ceftriaxone. Continue his Zoloft 100 mg daily, his amlodipine 2.5 mg daily and start him back on atorvastatin 40 mg daily. Continue his ferrous sulfate. Get CBC daily for his chronic iron deficiency anemia secondary to gastrointestinal bleeding. He has DNR/DNI, presented with MOLST form. His medical surrogate is his , Katelin. He can eat heart healthy, carbohydrate consistent diet. [id number]/CPS #: [id number] #: [id number] [facility]
--- NOTE | 2017-10-19 15:33 | RAD ---
HISTORY: Stroke, status post right endarterectomy. COMPARISONS: November 30, 2015 TECHNIQUE: Multiple transverse and longitudinal ultrasound images were obtained of the carotid and vertebral arteries bilaterally, using grayscale, color Doppler, and spectral Doppler imaging. FINDINGS: Measurement of carotid stenosis is based on flow velocity parameters that correlate the residual internal carotid artery diameter with [place] Symptomatic Carotid Endarterectomy Trial (NASCET)-based stenosis levels. RIGHT: Intima: The patient is status post right endarterectomy. Velocities: Right internal carotid artery maximum peak systolic velocity: 37 cm/s Right common carotid artery maximum peak systolic velocity: 86 cm/s Right internal carotid artery/common carotid artery ratio: 0.5 Waveforms: There is no spectral broadening. Right Vertebral: The right vertebral artery flow is antegrade. LEFT: Intima: There is diffuse intimal thickening with more focal atheroma formation at the bifurcation. Velocities: Left internal carotid artery maximum peak systolic velocity: 162 cm/s Left common carotid artery maximum peak systolic velocity: 106 cm/s Left internal carotid artery/common carotid artery ratio: 2 Waveforms: There is no spectral broadening. Left Vertebral: The left vertebral artery flow is antegrade. OTHER FINDINGS: None. IMPRESSION: 1. NO HEMODYNAMICALLY SIGNIFICANT STENOSIS OF THE RIGHT INTERNAL CAROTID ARTERY BY FLOW VELOCITY MEASUREMENTS. THIS CORRESPONDS TO A LUMINAL DIAMETER OF LESS THAN 50% STENOSIS BY NASCET CRITERIA. 2. ELEVATED PEAK SYSTOLIC VELOCITIES OF THE LEFT INTERNAL CAROTID ARTERY CONSISTENT WITH LEFT INTERNAL CAROTID ARTERY STENOSIS BETWEEN 50% AND 69% BY NASCET CRITERIA.. CPT II Codes: 3100F
--- NOTE | 2017-10-19 16:07 | ECHO ---
Patient: NENA BACON [facility] Rec#: [id number] : 1935 Date: 10/19/2017 Age: 81y Height: 180.34 cm / 71.0 in Weight: 95.25 kg / 209.9 lbs Sex: M BSA: 2.15 Room#: [facility] Admit Date#: 10/19/2017 Type: Inpatient Referring: Jesu Wei Reading: Gigi Gambino MD Furnace Room Supervisor: Ashanti Roberts,RDCS,RDMS CC: Flor Rondon, SIMONIZER Transthoracic Echocardiogram Indication: CVA, AFIB, BP: 153/79 HR: 83 Rhythm: A-Fib Findings History: CHF, CVA, AFIB, PAD, carotid endarterectomy, HTN, HLD, smoker Technical Comments: The study quality is fair. Left Ventricle: The left ventricular chamber size is decreased. Severe concentric left ventricular hypertrophy is observed. Global left ventricular wall motion and contractility are within normal limits. The left ventricle appears hyperdynamic. The estimated ejection fraction is greater than 65%. The assessment of diastolic function is non-diagnostic. Left Atrium: The left atrium is severely dilated. Right Ventricle: The right ventricle is moderately dilated. The right ventricular global systolic function is mildly to moderately reduced. Right Atrium: The right atrial cavity size is severely dilated. Aortic Valve: The aortic valve is trileaflet. The aortic valve leaflets are mildly thickened. There is no evidence of aortic regurgitation. There is no evidence of aortic stenosis. Mitral Valve: There is mitral annular calcification. The mitral valve leaflets are mildly thickened. There is moderate to severe mitral regurgitation. There is no evidence of mitral stenosis. Tricuspid Valve: The tricuspid valve leaflets are normal. There is moderate to severe tricuspid regurgitation. There is evidence of severe pulmonary hypertension. Pulmonic Valve: The pulmonic valve structure is not well visualized. There is a trace pulmonic regurgitation. Pericardium: There is no significant pericardial effusion. Aorta: The ascending aorta is not well visualized. There is no dilatation of the aortic arch. The aortic root is normal in size. Pulmonary Artery: The main pulmonary artery is not well visualized. Venous: The inferior vena cava is dilated. There is less than 50% respiratory change in the inferior vena cava dimension. Conclusions Global left ventricular wall motion and contractility are within normal limits. The left ventricle appears hyperdynamic. The estimated ejection fraction is greater than 65%. Severe concentric left ventricular hypertrophy is observed. The left atrium is severely dilated. There is no evidence of aortic stenosis. There is moderate to severe mitral regurgitation. There is moderate to severe tricuspid regurgitation. There is evidence of severe pulmonary hypertension. There is no significant pericardial effusion. Compared to study of 05/28/17, the LV function and LVH are the same. The degree of MR, TR and Pulm HTN are worse Measurements Name Value Normal Range RVIDd (AP) 2D 3.3 cm (0.9 - 2.6) RVDdMajor (2D) 4.3 cm (2.2 - 4.4) RAd ISD 4CH 6 cm (3.4 - 4.9) RA (A4C)W 6.5 cm (2.9 - 4.6) IVSd (2D) 2.1 cm (0.6 - 1) LVPWd (2D) 1.9 cm (0.6 - 1) LVIDd (2D) 3.3 cm (3.6 - 5.4) LVIDs (2D) 1.9 cm - LV FS (2D) 43 % (25 - 45) Aortic Annulus 2.1 cm (1.4 - 2.6) Ao root diameter (2D) 3.3 cm (2.1 - 3.5) Aortic arch 3.3 cm (1.8 - 3.4) LA dimension (AP) 2D 4.9 cm (2.3 - 3.8) LAd ISD 4CH 6.4 cm (2.9 - 5.3) LA ISD 4CH W 4.9 cm (2.5 - 4.5) Name Value Normal Range LA ESV SP 4CH (A/L) 96.34 ml - LA ESV SP 2CH (A/L) 134.54 ml - LA ESV BP (A/L) 119.78 ml - LA ESV BP (A/L) index 56 ml/m2 - LA ESV SP 4CH (MOD) 89.33 ml - LA ESV SP 2CH (MOD) 126.99 ml - LV EDV SP 4CH (MOD) 37.71 ml - LV ESV SP 4CH (MOD) 15.57 ml - EF SP 4CH (MOD) 58.71 % - LV EDV SP 2CH (MOD) 54.08 ml - LV ESV SP 2CH (MOD) 14.7 ml - EF SP 2CH (MOD) 72.82 % - LV EDV BP 45.45 ml - LV ESV BP 16.33 ml - BP EF (MOD) 64.07 % - Name Value Normal Range MV E-wave Vmax 0.9 m/sec - MV deceleration time 199 msec - LV lateral e' Vmax 0.05 m/sec - LV E:e' lateral ratio 18 ratio - Name Value Normal Range AV Vmax 1.4 m/sec - AV peak gradient 8 mmHg - LVOT Vmax 1.1 m/sec - LVOT peak gradient 5 mmHg - SABI Vmax 0.5 m/sec - Name Value Normal Range TR Vmax 3.4 m/sec - TR peak gradient 46 mmHg - RAP 15 mmHg - RVSP 61 mmHg - IVC diameter 3 cm - Name Value Normal Range PV Vmax 1 m/sec - PV peak gradient 4 mmHg -
--- NOTE | 2017-10-19 16:14 | RAD ---
INDICATION: Cerebrovascular accident. COMPARISON: Comparison is made with prior MRI of the brain from August 02, [address] of the brain from October 19, 2017. TECHNIQUE: Sagittal T1, axial T1, T2, susceptibility, FLAIR and diffusion weighted images were obtained. FINDINGS: The ventricles, cisterns and sulci are prominent consistent with diffuse atrophy. There is a focal moderate size area of restricted diffusion present in the left frontal lobe extending into the anterior aspect of the sylvian fissure consistent with an acute to subacute infarct. No hemorrhage is seen. There is an old infarct in the posterior right parietal lobe. There are also findings suggestive of mild chronic small vessel ischemic changes. There is mild mucosal thickening within the left maxillary sinus and mucosal thickening within the ethmoid air cells. There also appear to be small effusions within both mastoid air cells. IMPRESSION: 1. MODERATE SIZE ACUTE TO SUBACUTE NONHEMORRHAGIC INFARCT IN THE LEFT FRONTAL LOBE. 2. OLD RIGHT POSTERIOR PARIETAL LOBE INFARCT.
--- NOTE | 2017-10-19 17:50 | ED ---
Andres Pace Angela, scribed for Dane Hunt MD on 10/19/17 at 0952 . Neurological HPI - HPI Summary HPI Summary: Pt is a 81 y/o male presenting to [facility] via EMS from [place] for right facial droop. Per EMS, pt was last seen normal 1.5 hours PRACTICE ASSISTANT, approximately at 08:30 today. EMS reports the pt is usually very verbal but today he is not and has confusion. Pt is not able to answer all questions. Pt has pneumonia and is currently on antibiotics. - History of Current Complaint Stated Complaint: STROKE LIKE SYMPTOMS Time Seen by Provider: 10/19/17 09:45 Hx Obtained From: Patient Onset/Duration: Started hours ago, Still Present Timing: Constant Current Severity: Moderate Neurological Deficit Location: Facial - right facial droop Character: Confusion, Other: - right facial droop Aggravating: Nothing Alleviating: Nothing Associated Signs and Symptoms: Positive: Confusion - Additional Pertinent History Primary Care Physician: JOSH - Allergy/Home Medications Allergies/Adverse Reactions: Allergies Allergy/AdvReac Type Severity Reaction Status Date / Time Aspirin Allergy Unknown Unknown Verified 09/23/17 23:07 Reaction Details Warfarin [From Coumadin] Allergy Unknown Unknown Verified 09/23/17 23:06 Reaction Details Home Medications: Home Medications Acetaminophen [Acetaminophen Extra Stren] 1,000 mg PO Q8H PRN 10/19/17 [History Confirmed 10/19/17] Albuterol/Ipratropium NEB.JEFFRY* [Duoneb (Albuterol 2.5 MG/Ipratropium 0.5 MG)] 1 neb INH BID 10/19/17 [History Confirmed 10/19/17] Albuterol/Ipratropium NEB.JEFFRY* [Duoneb (Albuterol 2.5 MG/Ipratropium 0.5 MG)] 1 neb INH Q6H PRN 10/19/17 [History Confirmed 10/19/17] Ascorbic Acid TAB* [Vitamin C TAB*] 500 mg PO BID 10/19/17 [History Confirmed 10/19/17] Cholecalciferol TAB* [Vitamin D TAB*] 50,000 unit PO .Fridays10/19/17 [History Confirmed 10/19/17] Ferrous Sulfate TAB* 325 mg PO BID 10/19/17 [History Confirmed 10/19/17] Melatonin (NF) [Meladox] 3 mg PO BEDTIME 10/19/17 [History Confirmed 10/19/17] Menthol-Methyl Salicylate (Anitha [Bengay Greaseless] 1 cre TOPICAL BID 10/19/17 [ History Confirmed 10/19/17] Torsemide TAB* [Demadex*] 40 mg PO DAILY 10/19/17 [History Confirmed 10/19/17] amLODIPine TAB* [Norvasc 5 mg TAB*] 2.5 mg PO DAILY 10/19/17 [History Confirmed 10/19/17] guaiFENesin LIQ* [Robitussin*] 30 ml PO BID 10/19/17 [History Confirmed 10/19/17 ] PMH/Surg Hx/FS Hx/Imm Hx Endocrine/Hematology History: Reports: Hx Anticoagulant Therapy, Hx Diabetes, Hx Anemia Denies: Hx Blood Disorders, Hx Blood Transfusions, Hx Bone Marrow Disease, Hx Systemic Lupus Erythematosus, Hx Sickle Cell Disease, Hx Thyroid Disease, Hx Unexplained Bleeding, Other Endocrine/Hematological Disorders Cardiovascular History: Reports: Hx Congestive Heart Failure, Hx Hypercholesterolemia, Hx Hypertension, Hx Peripheral Vascular Disease, Other Cardiovascular Problems/Disorders - Carotid endarectomy Denies: Hx Aneurysm, Hx Angina, Hx Angioplasty, Hx Auto Implanted Cardiovert Defib, Hx Cardiac Arrest, Hx Cardiomegaly, Hx Congenital Heart Disease, Hx Coronary Artery Disease, Hx Deep Vein Thrombosis, Hx Embolism, Hx Hypotension, Hx Myocardial Infarction, Hx Pacemaker/ICD, Hx Rheumatic Fever, Hx Syncope, Hx Valvular Heart Disease Respiratory History: Reports: Hx Pleural Effusion Denies: Hx Asthma GI History: Reports: Hx Gastroesophageal Reflux Disease, Hx Gastrointestinal Bleed - ULCER, Hx Ulcer - ULCER Denies: Hx Cirrhosis, Hx Crohn's Disease, Hx Diverticulosis, Hx Gall Bladder Disease, Hx Hiatal Hernia, Hx Irritable Bowel, Hx Jaundice, Hx Obstructive Bowel , Hx Ileostomy, Hx Pyloric Stenosis, Other GI Disorders History: Reports: Hx Acute Renal Failure, Other Problems/Disorders - CKD Denies: Hx Renal Disease Musculoskeletal History: Reports: Hx Arthritis, Hx Back Problems, Other Musculoskeletal History - knee pain Denies: Hx Bursitis, Hx Congenital Bone Abnormalities, Hx Fibromyalgia, Hx Gout, Hx Orthopedic Injury, Hx Osteoporosis, Hx Scoliosis, Hx Tendonitis Sensory History: Reports: Hx Contacts or Glasses Denies: Hx Cataracts, Hx Eye Injury, Hx Eye Prosthesis, Hx Glaucoma, Hx Legally Blind, Hx Macular Degeneration, Hx Vision Problem, Hx Hearing Aid, Other Sensory Impairments Opthamlomology History: Reports: Hx Contacts or Glasses Denies: Hx Cataracts, Hx Eye Injury, Hx Eye Prosthesis, Hx Glaucoma, Hx Legally Blind, Hx Macular Degeneration, Hx Vision Problem, Other Sensory Impairments Neurological History: Reports: Hx CVA - 08/02/2015, Other Neuro Impairments/ Disorders - recent onset weakness Denies: Hx Dementia, Hx Developmental Delay, Hx Headaches, Hx Migraine, Hx Nerve Disease, Hx Seizures, Hx Spinal Cord Injury, Hx Transient Ischemic Attacks (TIA) Psychiatric History: Denies: Hx Anxiety, Hx Attention Deficit Hyperactivity Disorder, Hx Eating Disorder, Hx Depression, Hx Panic Disorder, Hx Post Traumatic Stress Disorder, Hx Inpatient Treatment, Hx Community Mental Health Tx, Hx Schizophrenia, Hx Bipolar Disorder, Hx Suicide Attempt, Hx of Violent Episodes Against Others, Hx Substance Abuse, Other Psychiatric Issues/Disorders - Surgical History Surgery Procedure, Year, and Place: CATARACTS; knee, foot surgery during childhood Hx Anesthesia Reactions: No Infectious Disease History: Denies: Hx Hepatitis - Family History Known Family History: Positive: Hypertension - Social History Alcohol Use: None Hx Substance Use: No Substance Use Type: Reports: Other Substance Use Comment - Amount & Last Used: chewing tobacco Hx Tobacco Use: No Smoking Status (MU): Never Smoked Tobacco Review of Systems Negative: Fever, Chills Eyes: Negative ENT: Negative Cardiovascular: Negative Neurological: Other - POS: right facial droop, confusion All Other Systems Reviewed And Are Negative: Yes Physical Exam - Summary Physical Exam Summary: VITAL SIGNS: Reviewed. GENERAL: Patient is a well-developed and nourished male who is lying comfortable in the stretcher. Patient is not in any acute respiratory distress. HEAD AND FACE: No signs of trauma. No ecchymosis, hematomas or skull depressions. No sinus tenderness. EYES: PERRLA, EOMI x 2, No injected conjunctiva, no nystagmus. EARS: Hearing grossly intact. Ear canals and tympanic membranes are within normal limits. MOUTH: Oropharynx within normal limits. NECK: Supple, trachea is midline, no adenopathy, no JVD, no carotid bruit, no c- spine tenderness, neck with full ROM. CHEST: Symmetric, no tenderness at palpation LUNGS: Bilateral crackles in the both bases of the lungs. CVS: Regular rate and rhythm, S1 and S2 present, no murmurs or gallops appreciated. ABDOMEN: Soft, non-tender. No signs of distention. No rebound no guarding, and no masses palpated. Bowel sounds are normal. EXTREMITIES: FROM in all major joints, no cyanosis or clubbing. 1+ bilateral lower extremity edema. NEURO: Pt is alert but confused. Speech is normal and follows commands. Pt has right facial droop. Pt has right lower extremity weakness. SKIN: Dry and warm Triage Information Reviewed: Yes Vital Signs On Initial Exam: Initial Vitals Temp Pulse Resp BP Pulse Ox 97.5 F 98 22 160/116 94 10/19/17 09:50 10/19/17 09:50 10/19/17 09:50 10/19/17 09:50 10/19/17 09:50 Vital Signs Reviewed: Yes - Anival Coma Scale Best Eye Response: 4 - Spontaneous Best Motor Response: 6 - Obeys Commands Best Verbal Response: 4 - Confused Coma Scale Total: 14 Diagnostics - Vital Signs Vital Signs Temp Pulse Resp BP Pulse Ox 10/19/17 10:01 147/73 10/19/17 10:00 88 19 82 10/19/17 09:53 21 10/19/17 09:52 160/116 10/19/17 09:50 97.5 F 98 22 160/116 94 - Laboratory Lab Results: Lab Results 10/19/17 10/19/17 10/19/17 Range/Units 09:52 10:16 10:16 WBC 8.0 (3.5-10.8) 10^3/ul RBC 2.87 L (4.0-5.4) 10^6/ul Hgb 7.8 L (14.0-18.0) g/dl Hct 24 L (42-52) % MCV 84 (80-94) fL MCH 27 (27-31) pg MCHC 32 (31-36) g/dl RDW 22 H (10.5-15) % Plt Count 323 (150-450) 10^3/ul MPV 6 L (7.4-10.4) um3 Neut % (Auto) 85.6 H (38-83) % Lymph % (Auto) 5.0 L (25-47) % Oxford % (Auto) 7.1 (1-9) % Eos % (Auto) 1.5 (0-6) % Baso % (Auto) 0.8 (0-2) % Absolute Neuts (auto) 6.8 (1.5-7.7) 10^3/ul Absolute Lymphs (auto) 0.4 L (1.0-4.8) 10^3/ul Absolute Monos (auto) 0.6 (0-0.8) 10^3/ul Absolute Eos (auto) 0.1 (0-0.6) 10^3/ul Absolute Basos (auto) 0.1 (0-0.2) 10^3/ul Absolute Nucleated RBC 0 10^3/ul Nucleated RBC % 0 INR (Anticoag Therapy) 1.10 H (0.77-1.02) APTT 30.1 (26.0-36.3) seconds Sodium (133-145) mmol/L Potassium (3.5-5.0) mmol/L Chloride (101-111) mmol/L Carbon Dioxide (22-32) mmol/L Anion Gap (2-11) mmol/L BUN (6-24) mg/dL Creatinine (0.67-1.17) mg/dL Est GFR ( Amer) (>60) Est GFR (Non-Af Amer) (>60) BUN/Creatinine Ratio (8-20) Glucose (70-100) mg/dL POC Glucose (mg/dL) 137 H (70-100) mg/dL Lactic Acid (0.5-2.0) mmol/L Calcium (8.6-10.3) mg/dL Total Bilirubin (0.2-1.0) mg/dL AST (13-39) U/L ALT (7-52) U/L Alkaline Phosphatase (34-104) U/L Troponin I (<0.04) ng/mL B-Natriuretic Peptide ( - 100) pg/mL Total Protein (6.4-8.9) g/dL Albumin (3.2-5.2) g/dL Globulin (2-4) g/dL Albumin/Globulin Ratio (1-3) Triglycerides mg/dL Cholesterol mg/dL LDL Cholesterol mg/dL HDL Cholesterol mg/dL Procalcitonin (<0.6) ng/mL Blood Type Antibody Screen 10/19/17 10/19/17 10/19/17 Range/Units 10:16 10:16 10:16 WBC (3.5-10.8) 10^3/ul RBC (4.0-5.4) 10^6/ul Hgb (14.0-18.0) g/dl Hct (42-52) % MCV (80-94) fL MCH (27-31) pg MCHC (31-36) g/dl RDW (10.5-15) % Plt Count (150-450) 10^3/ul MPV (7.4-10.4) um3 Neut % (Auto) (38-83) % Lymph % (Auto) (25-47) % Oxford % (Auto) (1-9) % Eos % (Auto) (0-6) % Baso % (Auto) (0-2) % Absolute Neuts (auto) (1.5-7.7) 10^3/ul Absolute Lymphs (auto) (1.0-4.8) 10^3/ul Absolute Monos (auto) (0-0.8) 10^3/ul Absolute Eos (auto) (0-0.6) 10^3/ul Absolute Basos (auto) (0-0.2) 10^3/ul Absolute Nucleated RBC 10^3/ul Nucleated RBC % INR (Anticoag Therapy) (0.77-1.02) APTT (26.0-36.3) seconds Sodium 137 (133-145) mmol/L Potassium 3.9 (3.5-5.0) mmol/L Chloride 99 L (101-111) mmol/L Carbon Dioxide 29 (22-32) mmol/L Anion Gap 9 (2-11) mmol/L BUN 26 H (6-24) mg/dL Creatinine 1.62 H (0.67-1.17) mg/dL Est GFR ( Amer) 52.6 (>60) Est GFR (Non-Af Amer) 40.9 (>60) BUN/Creatinine Ratio 16.0 (8-20) Glucose 124 H (70-100) mg/dL POC Glucose (mg/dL) (70-100) mg/dL Lactic Acid 2.4 H* (0.5-2.0) mmol/L Calcium 8.4 L (8.6-10.3) mg/dL Total Bilirubin 0.40 (0.2-1.0) mg/dL AST 14 (13-39) U/L ALT 6 L (7-52) U/L Alkaline Phosphatase 98 (34-104) U/L Troponin I 0.05 H* (<0.04) ng/mL B-Natriuretic Peptide ( - 100) pg/mL Total Protein 7.1 (6.4-8.9) g/dL Albumin 3.1 L (3.2-5.2) g/dL Globulin 4.0 (2-4) g/dL Albumin/Globulin Ratio 0.8 L (1-3) Triglycerides 94 mg/dL Cholesterol 113 mg/dL LDL Cholesterol 60 mg/dL HDL Cholesterol 34.6 mg/dL Procalcitonin (<0.6) ng/mL Blood Type O Positive Antibody Screen Negative 10/19/17 10/19/17 Range/Units 10:16 10:16 WBC (3.5-10.8) 10^3/ul RBC (4.0-5.4) 10^6/ul Hgb (14.0-18.0) g/dl Hct (42-52) % MCV (80-94) fL MCH (27-31) pg MCHC (31-36) g/dl RDW (10.5-15) % Plt Count (150-450) 10^3/ul MPV (7.4-10.4) um3 Neut % (Auto) (38-83) % Lymph % (Auto) (25-47) % Oxford % (Auto) (1-9) % Eos % (Auto) (0-6) % Baso % (Auto) (0-2) % Absolute Neuts (auto) (1.5-7.7) 10^3/ul Absolute Lymphs (auto) (1.0-4.8) 10^3/ul Absolute Monos (auto) (0-0.8) 10^3/ul Absolute Eos (auto) (0-0.6) 10^3/ul Absolute Basos (auto) (0-0.2) 10^3/ul Absolute Nucleated RBC 10^3/ul Nucleated RBC % INR (Anticoag Therapy) (0.77-1.02) APTT (26.0-36.3) seconds Sodium (133-145) mmol/L Potassium (3.5-5.0) mmol/L Chloride (101-111) mmol/L Carbon Dioxide (22-32) mmol/L Anion Gap (2-11) mmol/L BUN (6-24) mg/dL Creatinine (0.67-1.17) mg/dL Est GFR ( Amer) (>60) Est GFR (Non-Af Amer) (>60) BUN/Creatinine Ratio (8-20) Glucose (70-100) mg/dL POC Glucose (mg/dL) (70-100) mg/dL Lactic Acid (0.5-2.0) mmol/L Calcium (8.6-10.3) mg/dL Total Bilirubin (0.2-1.0) mg/dL AST (13-39) U/L ALT (7-52) U/L Alkaline Phosphatase (34-104) U/L Troponin I (<0.04) ng/mL B-Natriuretic Peptide 228 H ( - 100) pg/mL Total Protein (6.4-8.9) g/dL Albumin (3.2-5.2) g/dL Globulin (2-4) g/dL Albumin/Globulin Ratio (1-3) Triglycerides mg/dL Cholesterol mg/dL LDL Cholesterol mg/dL HDL Cholesterol mg/dL Procalcitonin < 0.1 (<0.6) ng/mL Blood Type Antibody Screen Result Diagrams: 10/19/17 10:16 10/19/17 10:16 Lab Statement: Any lab studies that have been ordered have been reviewed, and results considered in the medical decision making process. - Radiology Chest XR Xray Interpretation: Positive (See Comments) - IMPRESSION: 1. Right greater than left bilateral pleural effusions with bibasilar atelectasis versus consolidation. 2. Pulmonary vascular congestion. Dr. Hunt has reviewed this radiology report. Radiology Interpretation Completed By: Radiologist - CT Brain CT CT Interpretation: Positive (See Comments) - IMPRESSION: 1. Subacute nonhemorrhagic infarct of the left inferior frontal lobe and anterior insula and frontal operculum. 2. Multifocal nonacute infarcts. Dr. Hunt has reviewed this radiology report. CT Interpretation Completed By: Radiologist - EKG 10:08 Cardiac Rate: NL EKG Rhythm: Atrial Fibrillation - at 86 bpm EKG Interpretation: No ST elevation EKG Comparison: No Significant Change - similar to prior EKG done on 03/04/17. NIH Scale - NIH Scale Level of Consciousness: Alert/Keenly Responsive Ask Patient the Month and His/Her Age: Neither Correct/Aphasic Ask Pt to Open/Close Eyes and Butter Fat Tester/Release Non-Paretic Hand: Both Correctly Best Gaze (Only Horizontal Eye Movement): Normal Visual Field Testing: No Visual Loss Facial Paresis-Pt to Smile & Close Eyes or Grimace Symmetry: Minor Paralysis Motor Function - Right Arm: No Drift-Holds 10 Seconds Motor Function - Left Arm: No Drift-Holds 10 Seconds Motor Function - Right Leg: Drifts LT 10 seconds Motor Function - Left Leg: No Drift-Holds 10 Seconds Limb Ataxia-Must be out of Proportion to Weakness Present: Present in One Limb Sensory (Use Pinprick to Test Arms/Legs/Trunk/Face): Normal Best Language (Describe Picture, Name Items): Some Loss Dysarthria (Read Several Words): Normal Extinction and Inattention: No Abnormality Total Score: 6 Course/Dx - Course Course Of Treatment: Pt is a 81 y/o male presenting to [facility] via EMS from [place] for right facial droop. Per EMS, pt was last seen normal 1.5 hours PRACTICE ASSISTANT, approximately at 08:30 today. EMS reports the pt is usually very verbal but today he is not and has confusion. Pt is not able to answer all questions. Pt has pneumonia and is currently on antibiotics. Test results without any acute pathology except for chronic anemia, chronic renal failure, troponin of 0.05. In the ED course, the pt was placed immediately on a monitor. Since he had neurological deficits, we called a code herbert and the pt went to CT scan immediately. CT Head shows 1. Subacute nonhemorrhagic infarct of the left inferior frontal lobe and anterior insula and frontal operculum. 2. Multifocal nonacute infarcts. Pt has history of chronic GI bleed and we are uncertain of onset of his symptoms. Dr. March, neurologist, came and assessed the pt. Dr. March reports pt is not a candidate for tPA and recommends for the pt to be admitted to the hospitalist for work up further management. I spoke with Dr. Wei, who accepted the pt for admission. Pt is hemodynamically stable, alert but not oriented. - Differential Dx Differential Diagnoses Neuro: Positive: Benign Paroxysmal Positional Vertigo, Cerebrovascular Accident, Seizure Disorder, Transient Ischemic Attack, Vasovagal Reaction - Diagnoses Provider Diagnoses: Ischemic cerebrovascular accident (CVA) During the Visit The Following Alert/Code Occurred: Code Herbert - at 09:49 - Physician Notifications Discussed Care Of Patient With: Allyssa March Time Discussed With Above Provider: 09:54 Instructed by Provider To: Other - Dr. March in to see the pt in the ED. I discussed pt care with Dr. March, who recommends admission as the pt is not a tPA candidate due to unknown time of onset of symptoms. [10:37] I spoke with Dr. Wei, hospitalist, who has agreed to admit the pt. - Critical Care Time Critical Care Time: 75-104 min Discharge - Discharge Plan Condition: Stable Disposition: ADMITTED TO [facility] documentation as recorded by the Andres walker Angela accurately reflects the service I personally performed and the decisions made by me, Dane Hunt MD.
[2017-10-19 19:26] LABS: Urine Appearance Clear; Urine Blood Negative (Negative); Urine Color Straw; Urine Ketones Negative (Negative); Urine Protein Negative (Negative); Urine Specific Gravity 1.008 (1.010-1.030); Urine Urobilinogen Negative (Negative)
--- NOTE | 2017-10-19 20:21 | HP ---
HISTORY AND PHYSICAL: ADDENDUM: PAST MEDICAL HISTORY: Includes: 1. CVA. 2. Carotid stenosis, status post endarterectomy. 3. Noninsulin-dependent diabetes mellitus. 4. 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 5. Hypertension. 6. Hyperlipidemia. 7. GERD. MEDICATIONS: Include: 1. Torsemide 40 mg daily. 2. Sertraline 100 mg p.o. daily. 3. Omeprazole 40 mg p.o. b.i.d. 4. Ascorbic acid 500 mg p.o. b.i.d. 5. Bengay topical b.i.d. 6. Melatonin 3 mg p.o. q.h.s. 7. Ferrous sulfate 325 mg p.o. b.i.d. 8. Albuterol nebulizer q.6 hours p.r.n. 9. Robitussin 30 mL p.o. b.i.d. 10. Cholecalciferol 50,000 units p.o. weekly on Fridays. 11. Amlodipine 2.5 mg p.o. daily. 12. Acetaminophen 1000 mg p.o. q.8 hours p.r.n. Of note, recently had been stopped off Crestor 40 mg daily 1 week prior to admission. Also, had recently completed 5 days azithromycin course, last . ALLERGIES: No known drug allergies. SOCIAL HISTORY: The patient is a never smoker, but had 40 to 50 years of chewing tobacco use. No significant alcohol or drug use. Lives with his prior to recent admission, Katelin and had been using a walker at baseline prior. FAMILY HISTORY: Father with CVA and prostate cancer. Mother with hypertension. REVIEW OF SYSTEMS: The patient is a very poor historian. Denies any fevers, chills. Does have gurgling quality of his voice ever since diagnosed with pneumonia about 1 week prior. Otherwise, as per HPI. PHYSICAL EXAMINATION GENERAL APPEARANCE: No acute distress. Sitting in the hospital bed. VITAL SIGNS: Initially, blood pressure 160/116, currently 123/75; temperature 98.3; pulse rate 90; respiratory rate 20; satting 100% on 3 L nasal cannula, initial saturations documented as 94%, then dipping down to 68% on room air. HEENT: Normocephalic, atraumatic. Pupils equally round and reactive to light. Extraocular motions intact. No scleral icterus. No oropharynx lesions. NECK: Supple. PULMONARY: The patient with rhonchi at the right middle lung field and decreased breath sounds on bilateral bases. No wheezing appreciated. CARDIOVASCULAR: Irregularly irregular rate. No murmurs, rubs, or gallops. ABDOMEN: Soft, nontender, nondistended. No peritoneal signs. No guarding, no rebound, no Lepe's sign. EXTREMITIES: 1+ edema bilaterally. SKIN: No lesions, no rashes. NEURO: Entry Level Marketing Assistant strength 5/5 bilaterally. Right hip flexion 5/5, left 5-/5, prominent right facial droop. Cranial nerves II through XII otherwise grossly intact with some word finding difficulty perhaps. DIAGNOSTIC STUDIES/LAB DATA: White count 8.0, hemoglobin 7.8, hematocrit 24, platelets 323. INR 1.10. Sodium 137, potassium 3.9, chloride 99, carbon dioxide 29, BUN 26, creatinine 1.62, lactic acid 1.4, glucose 124. AST 14, ALT 6, alk phos 98. Troponin 0.05. BNP 228. LDL 60, HDL 35. Chest x-ray demonstrated right greater than left bilateral pleural effusions with bibasilar atelectasis versus consolidation, pulmonary vascular congestion. EKG demonstrated atrial fibrillation, heart rate 86, poor R-wave progression, no ST elevations, depressions, flat T-waves in V1 and V2. ASSESSMENT AND PLAN: Mr. Moctezuma is an 81-year-old male with past medical history of atrial fibrillation, on no anticoagulation given significant gastrointestinal bleeding history, chronic iron deficiency anemia requiring multiple blood transfusions, presenting with subacute stroke. Appreciate Neurology recommendations. We will get a carotid ultrasound bilaterally. He has a history of right endarterectomy. He is not a tPA candidate given his gastrointestinal bleeding. We will hold his aspirin as he did not tolerate it in the past. Repeat a fasting lipid panel. He just had A1c less than 2 weeks ago, which showed 5.8. We will continue neuro checks. Likely not a candidate for anticoagulation or antiplatelet therapy, so difficult management as said already. For his volume overload and hypoxic respiratory failure, we will continue his torsemide 40 mg daily and he notably seemed to get worse after 1 L fluid in the ED. He may have a component of diastolic dysfunction and last echo was in July 2015 with preserved ejection fraction of 65% and moderate pulmonary hypertension. Consideration to get another echo to rule out thrombus, get a sense of his current systolic and diastolic dysfunction, any valvular abnormalities, and pulmonary hypertension status. May need additional IV diuretics. His BNP was slightly elevated to 28 down from May. It is unclear if that was before or after the IV fluids. We will get a procalcitonin and sputum culture given this recent history of pneumonia that was treated with ceftriaxone and then 5 days of azithromycin and a chest x-ray, which is difficult to exclude additional infiltrates. Get Strep urine and Legionella urine antigen and put empirically on ceftriaxone. Continue his Zoloft 100 mg daily, his amlodipine 2.5 mg daily and start him back on atorvastatin 40 mg daily. Continue his ferrous sulfate. Get CBC daily for his chronic iron deficiency anemia secondary to gastrointestinal bleeding. He has DNR/DNI, presented with MOLST form. His medical surrogate is his , Katelin. He can eat heart healthy, carbohydrate consistent diet. [id number]/[facility] #: [id number] [facility]
[2017-10-19] MEDS: Ascorbic Acid TAB* 500 MG PO SCH (21:13)
[2017-10-19] MEDS: Analgesic BALM* 114 GM TOPICAL SCH (21:25)
[2017-10-19] MEDS: CMC:Melatonin (NF) 3 MG TAB PO SCH (21:26)
[2017-10-20 06:00] LABS: ABS Basophils 0.1 10^3/ul (0-0.2); ABS Eosinophils 0.2 10^3/ul (0-0.6); ABS Lymphocytes 0.5 10^3/ul (1.0-4.8); ABS Monocytes 0.6 10^3/ul (0-0.8); ABS Nucleated RBC 0 10^3/ul; Eosinophil % 2.3 % (0-6); Hematocrit 23 % (42-52); Hemoglobin 7.7 g/dl (14.0-18.0); Lymphocyte % 7.4 % (25-47); Mean Corpuscular HGB Conc 33 g/dl (31-36); Mean Corpuscular Hemoglobin 28 pg (27-31); Mean Corpuscular Volume 84 fL (80-94); Mean Platelet Volume 6 um3 (7.4-10.4); Nucleated Red Blood Cells % 0; Platelet Count 280 10^3/ul (150-450); Red Blood Count 2.74 10^6/ul (4.0-5.4); Red Cell Distribution Width 22 % (10.5-15); White Blood Count 7.4 10^3/ul (3.5-10.8)
[2017-10-20] MEDS: amLODIPine TAB* 5 MG PO SCH (09:19)
[2017-10-20] MEDS: Omeprazole CAP* 20 MG PO SCH ×2 (09:19→21:06)
[2017-10-20] MEDS: Sertraline* 100 MG TAB PO SCH (09:19)
[2017-10-20] MEDS: Ascorbic Acid TAB* 500 MG PO SCH ×2 (09:19→21:10)
[2017-10-20] MEDS: Analgesic BALM* 114 GM TOPICAL SCH ×2 (09:19→21:11)
[2017-10-20] MEDS: Ferrous Sulfate TAB* 325 MG PO SCH ×2 (09:19→21:09)
[2017-10-20] MEDS: Torsemide TAB* 20 MG PO SCH (09:19)
--- NOTE | 2017-10-20 10:34 | PN ---
Subjective Date of Service: 10/20/17 Interval History: worked with PT, reportedly very uncoordinated on right side and subsequently struggled to get to chair. Suggested Krissy lift. Palliative consulted. ECHO with severe pHTN, mod-sev MVR, mod-severe TVR. all worse from 2015 carotid stenosis on left 50-69% wet cough. on 3L seems to have right side neglect. minimally conversant but some yes/no answers. Talked with grand daughter who is director at [employer] Objective Active Medications: Albuterol/Ipratropium (Duoneb (Albuterol 2.5 Mg/Ipratropium 0.5 Mg)) 1 neb INH Q6H PRN PRN Reason: SOB/WHEEZING Amlodipine Besylate (Norvasc Tab*) 2.5 mg PO DAILY [facility] Last Admin: 10/20/17 09:19 Dose: 2.5 mg Ascorbic Acid (Vitamin C Tab*) 500 mg PO BID [facility] Last Admin: 10/20/17 09:19 Dose: 500 mg Ergocalciferol (Drisdol Cap*) 50,000 unit PO Fr [facility] Ferrous Sulfate (Ferrous Sulfate Tab*) 325 mg PO BID [facility] Last Admin: 10/20/17 09:19 Dose: 325 mg Melatonin (Melatonin (Nf)) 3 mg PO BEDTIME [facility] PRN Reason: Protocol Last Admin: 10/19/17 21:26 Dose: 3 mg Multi-Ingredient Liniment/Rub (Demarco Bowling*) 1 applic TOPICAL BID [facility] Last Admin: 10/20/17 09:19 Dose: 1 applic Omeprazole (Prilosec Cap*) 40 mg PO BID [facility] Last Admin: 10/20/17 09:19 Dose: 40 mg Sertraline HCl (Zoloft*) 100 mg PO DAILY [facility] Last Admin: 10/20/17 09:19 Dose: 100 mg Torsemide (Demadex*) 40 mg PO DAILY [facility] Last Admin: 10/20/17 09:19 Dose: 40 mg Vital Signs - 8 hr 10/20/17 10/20/17 10/20/17 04:17 07:41 09:17 Temperature 97.2 F 98.2 F Pulse Rate 67 81 Respiratory 18 20 Rate Blood Pressure 107/58 122/71 (mmHg) O2 Sat by Pulse 97 90 94 Oximetry Oxygen Devices in Use Now: Nasal Cannula Appearance: NAD. sitting in chair. wet cough Eyes: No Scleral Icterus, PERRLA Ears/Nose/Mouth/Throat: NL Teeth, Lips, Gums, Mucous Membranes Moist Neck: NL Appearance and Movements; NL JVP, Trachea Midline Respiratory: - - coarse rhonchi right middle and upper lobe. decreased b/l bases. no wheezing. wet cough. Cardiovascular: NL Sounds; No Murmurs; No JVD, RRR Abdominal: NL Sounds; No Tenderness; No Distention, No Hepatosplenomegaly Extremities: No Edema Skin: No Rash or Ulcers, No Nodules or Sclerosis Neurological: - - ?right sided neglect. minimally conversant, occasional yes/ no. 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 right side facial droop. Result Diagrams: 10/20/17 05:32 10/20/17 05:32 Additional Lab and Data: Laboratory Results - last 24 hr 10/19/17 10/19/17 10/20/17 17:00 19:36 00:10 WBC RBC Hgb Hct MCV MCH MCHC RDW Plt Count MPV Neut % (Auto) Lymph % (Auto) [place] % (Auto) Eos % (Auto) Baso % (Auto) Absolute Neuts (auto) Absolute Lymphs (auto) Absolute Monos (auto) Absolute Eos (auto) Absolute Basos (auto) Absolute Nucleated RBC Nucleated RBC % Sodium Potassium Chloride Carbon Dioxide Anion Gap BUN Creatinine Est GFR ( Amer) Est GFR (Non-Af Amer) BUN/Creatinine Ratio Glucose POC Glucose (mg/dL) 130 H Calcium Magnesium Troponin I 0.06 H* Triglycerides Cholesterol LDL Cholesterol HDL Cholesterol Urine Color Straw Urine Appearance Clear Urine pH 5.0 Ur Specific [place] 1.008 L Urine Protein Negative Urine Ketones Negative Urine Blood Negative Urine Nitrate Negative Urine Bilirubin Negative Urine Urobilinogen Negative Ur Leukocyte Esterase Negative Urine Glucose Negative 10/20/17 10/20/17 10/20/17 05:32 05:32 07:44 WBC 7.4 RBC 2.74 L Hgb 7.7 L Hct 23 L MCV 84 MCH 28 MCHC 33 RDW 22 H Plt Count 280 MPV 6 L Neut % (Auto) 80.9 Lymph % (Auto) 7.4 L [place] % (Auto) 8.6 Eos % (Auto) 2.3 Baso % (Auto) 0.8 Absolute Neuts (auto) 6.0 Absolute Lymphs (auto) 0.5 L Absolute Monos (auto) 0.6 Absolute Eos (auto) 0.2 Absolute Basos (auto) 0.1 Absolute Nucleated RBC 0 Nucleated RBC % 0 Sodium 139 Potassium 3.7 Chloride 102 Carbon Dioxide 24 Anion Gap 13 H BUN 26 H Creatinine 1.58 H Est GFR ( Amer) 54.1 Est GFR (Non-Af Amer) 42.1 BUN/Creatinine Ratio 16.5 Glucose 88 POC Glucose (mg/dL) 108 H Calcium 8.3 L Magnesium 1.8 L Troponin I 0.06 H* Triglycerides 92 Cholesterol 116 LDL Cholesterol 66 HDL Cholesterol 31.9 Urine Color Urine Appearance Urine pH Ur Specific [place] Urine Protein Urine Ketones Urine Blood Urine Nitrate Urine Bilirubin Urine Urobilinogen Ur Leukocyte Esterase Urine Glucose 10/20/17 10/20/17 12:15 17:12 WBC RBC Hgb Hct MCV MCH MCHC RDW Plt Count MPV Neut % (Auto) Lymph % (Auto) [place] % (Auto) Eos % (Auto) Baso % (Auto) Absolute Neuts (auto) Absolute Lymphs (auto) Absolute Monos (auto) Absolute Eos (auto) Absolute Basos (auto) Absolute Nucleated RBC Nucleated RBC % Sodium Potassium Chloride Carbon Dioxide Anion Gap BUN Creatinine Est GFR ( Amer) Est GFR (Non-Af Amer) BUN/Creatinine Ratio Glucose POC Glucose (mg/dL) 107 H 141 H Calcium Magnesium Troponin I Triglycerides Cholesterol LDL Cholesterol HDL Cholesterol Urine Color Urine Appearance Urine pH Ur Specific [place] Urine Protein Urine Ketones Urine Blood Urine Nitrate Urine Bilirubin Urine Urobilinogen Ur Leukocyte Esterase Urine Glucose Microbiology and Other Data: Microbiology 10/19/17 17:00 Urine Streptococcus pneumoniae Ag Screen - Final Negative S. pneumo Antigen Assess/Plan/Problems-Billing Assessment: 81 yo male PMH Afib off anticoagulation 2/2 chronic blood loss anemia thought 2/ 2 AVM/GIB, previous right MCA CVA, diastolic CHF, p/w right facial droop and found to have subacute left frontal CVA. ECHO with severe pHTN, mod-severe MVR & TVR. Requiring krissy w/ PT. Palliative care consulted. - Patient Problems (1) Cardioembolic stroke Current Visit: No Status: Acute Code(s): I63.9 - CEREBRAL INFARCTION, UNSPECIFIED SNOMED Code(s): 198023967 Comment: subacute left frontal in setting of Afib w/o A/C given prior bleeding appreciate neuro recs. Consideration to start aspirin 81mg daily. physical therapy, now requiring krissy. GOC discussions, palliative care consulted given now worsening pHTN, inability to safely fully anticoagulate, pleural effusions, hypoxic respiratory failure. Speech Language evaluation. (2) Atrial fibrillation Current Visit: No Status: Acute Onset Date: 08/02/15 Code(s): I48.91 - UNSPECIFIED ATRIAL FIBRILLATION SNOMED Code(s): 26123938 Comment: chronic. has been off a/c given bleeding. high CHADSVASC2. tele (3) CHF (congestive heart failure) Current Visit: No Status: Acute Code(s): I50.9 - HEART FAILURE, UNSPECIFIED SNOMED Code(s): 80172449 Comment: HFpEF. cont Torsemide 40mg daily. plan IV bumex prn if respiratory status worsening. pleural effusions on CXR. mod-sev MVR, TVR and severe pulmonary hypertension. daily weights, strict io BNP 228 on admission (4) Anemia Current Visit: No Status: Acute Priority: High Code(s): D64.9 - ANEMIA, UNSPECIFIED SNOMED Code(s): 262853326 Comment: EGD February 2017 with e/o gastritis and AVMs, similar to prior, not seen actively bleeding and recommend to abstain froum coumadin at that time. cont PPI cont ferrous sulfate Hb 7.7 (5) CKD (chronic kidney disease) stage 4, GFR 15-29 ml/min Current Visit: No Status: Acute Code(s): N18.4 - CHRONIC KIDNEY DISEASE, STAGE 4 (SEVERE) SNOMED Code(s): 215498766 Comment: improved. FOREST OFFICER 1.6 GFR 42.-> Stage 3b (6) HTN (hypertension) Current Visit: No Status: Acute Code(s): I10 - ESSENTIAL (PRIMARY) HYPERTENSION SNOMED Code(s): 49502485 Comment: Continue home doses of amlodipine 2.5mg (7) AVM (arteriovenous malformation) Current Visit: Yes Status: Acute Code(s): Q27.30 - ARTERIOVENOUS MALFORMATION, SITE UNSPECIFIED SNOMED Code(s): 359171860 Comment: has been getting transfusions with Dr. Ling. off a/c. (8) Hyperlipidemia Current Visit: No Status: Chronic Code(s): E78.5 - HYPERLIPIDEMIA, UNSPECIFIED SNOMED Code(s): 52336400 Comment: has been off crestor for about 7days as jail trying to pare down medications. . Status and Disposition: medicine inpatient. Attending: Jesu Wei
[2017-10-20] MEDS: cefTRIAXone(*) 1 GM in NS 0.9% 50 ML* 50 ML IVPB SCH (12:01)
[2017-10-20 12:14] LABS: EGFR Non-African American 42.1 (>60)
[2017-10-20] MEDS: CMC:Melatonin (NF) 3 MG TAB PO SCH (21:11)
--- NOTE | 2017-10-21 04:46 | PN ---
PROGRESS NOTE: DATE OF FOLLOWUP: 10/20/17 HISTORY: No acute overnight events. He underwent his MRI scan yesterday, which showed a left frontal infarct as well as evidence of old right MCA territory stroke and a small old stroke in the left precentral gyrus. His transthoracic echocardiogram is worse compared with May and show severe left ventricular hypertrophy with a hyperdynamic EF of greater than 65%, severe left atrial and right atrial dilation and [id number] mitral and tricuspid regurgitation with severe pulmonary hypertension. In addition, he was found to have bilateral pleural effusions. His telemetry continues to show AFib. Dr. Wei has placed a palliative care consult given all of the medical problems going on with him and the worsening of his cardiac status as well as the pleural effusions in the setting of this new stroke. Unfortunately, when I saw the patient today, his family was not present for further discussion. HOSPITAL MEDICATIONS: 1. DuoNebs as needed. 2. Amlodipine 2.5 mg daily. 3. Vitamin C 500 mg twice daily. 4. Ceftriaxone 1 g daily. 5. Vitamin D 50,000 units weekly. 6. Ferrous sulfate 325 mg twice daily. 7. Melatonin 3 mg at bedtime. 8. Bengay twice daily. 9. Prilosec 40 mg twice daily. 10. Zoloft 100 mg daily. 11. Torsemide 40 mg daily. PHYSICAL EXAMINATION: Vital Signs: Temperature 99, blood pressure 142/76, heart rate 79 and he has been noted to be in atrial fibrillation on telemetry, oxygen saturation 98% on 3 L. On examination, he was lying comfortably in his hospital bed though his nasal cannula was out of his nose hanging on one ear. I replaced this for him. On exam, he continues to demonstrate a right facial droop and today appears to have some hesitation and raising his right arm off the bed, though he is still able to sustain the right arm antigravity for 10 seconds and his evp head of sm[employer] experience strategy feel fairly equal. The right leg was noted to be externally rotated, though he is able to provide good resistance off the bed in the right and left lower extremities. He continues to have an expressive aphasia, though today was able to say hello and able to tell me his full name. He was not able to name any objects. He was able to repeat 2 phrases. He was not able to read out loud. He was able to follow commands. He had full versions with no clear field defect. DATA: MRI and transthoracic echocardiogram reviewed as described above. Carotid ultrasound performed yesterday showed no hemodynamically significant stenosis of the right internal carotid artery. The left internal carotid artery shows peak systolic velocities consistent with a 50% to 69% stenosis. LABORATORY DATA: His laboratory data is notable for a troponin of 0.06. His renal function is slightly improved today with a creatinine of 1.58 and a BUN of 26. Calcium was well at 8.3 and magnesium 1.8. His fasting lipid profile showed an LDL of 66, total cholesterol 116, triglycerides 92, and HDL of 31.9. His hematocrit this morning was just slightly low at 23 from 24 yesterday with an essentially stable hemoglobin. IMPRESSION: Mr. Moctezuma is an 81-year-old man admitted with a new frontal stroke in the setting of atrial fibrillation, not on anticoagulation secondary to chronic GI bleeding leading to chronic transfusion dependence and anemia. This occurs in the setting of a past history of stroke as well as worsening valvular disease and pulmonary hypertension as well as bilateral pleural effusions. At this point, we have held off on starting an aspirin given his GI bleeding history. I am also not certain at this point how aggressive the family wants to be in terms of his overall care given the other medical problems he is facing as well. I hope to clarify this in the next day or so as the least we can do for him is to start him on an aspirin and if all of the physicians involved in his care feel that he might be able to tolerate this. To better determine this, we may need to involve either GI or Hematology. I also, however , await the palliative care evaluation. His LDL is at goal and I note that still that there is not a statin on his list, though his LDL level suggests that he is probably taking one. We should verify this. I will also ask for a Speech Therapy evaluation to ensure he is on the proper diet as well for his aphasia. His left carotid artery shows less than 70% stenosis, which is not a strong indication for any kind of intervention and he is likely not well enough to undergo any stenting or endarterectomy even if it was indicated. I will continue to follow him along during his hospitalization. [id number]/[facility] #: [id number] JUDI
[2017-10-21 05:25] LABS: ABS Basophils 0.1 10^3/ul (0-0.2); ABS Eosinophils 0.1 10^3/ul (0-0.6); ABS Lymphocytes 0.6 10^3/ul (1.0-4.8); ABS Monocytes 0.6 10^3/ul (0-0.8); ABS Neutrophils 5.5 10^3/ul (1.5-7.7); ABS Nucleated RBC 0 10^3/ul; Hematocrit 22 % (42-52); Lymphocyte % 9.2 % (25-47); Mean Corpuscular HGB Conc 32 g/dl (31-36); Mean Corpuscular Hemoglobin 27 pg (27-31); Mean Corpuscular Volume 84 fL (80-94); Mean Platelet Volume 7 um3 (7.4-10.4); Nucleated Red Blood Cells % 0; Platelet Count 258 10^3/ul (150-450); Red Blood Count 2.56 10^6/ul (4.0-5.4); Red Cell Distribution Width 21 % (10.5-15)
[2017-10-21] MEDS: amLODIPine TAB* 5 MG PO SCH (09:04)
[2017-10-21] MEDS: Ferrous Sulfate TAB* 325 MG PO SCH (09:05)
[2017-10-21] MEDS: Torsemide TAB* 20 MG PO SCH (09:05)
[2017-10-21] MEDS: Omeprazole CAP* 20 MG PO SCH ×2 (09:05→22:29)
[2017-10-21] MEDS: Analgesic BALM* 114 GM TOPICAL SCH ×2 (09:05→22:53)
[2017-10-21] MEDS: Ascorbic Acid TAB* 500 MG PO SCH ×2 (09:05→22:29)
[2017-10-21] MEDS: Sertraline* 100 MG TAB PO SCH (09:05)
[2017-10-21] MEDS: cefTRIAXone(*) 1 GM in NS 0.9% 50 ML* 50 ML IVPB SCH (12:19)
[2017-10-21] MEDS ORDERED: Sertraline* 50 MG TAB PO SCH (13:39)
--- NOTE | 2017-10-21 13:42 | PN ---
Subjective Date of Service: 10/21/17 Interval History: He offers Objective Active Medications: Albuterol/Ipratropium (Duoneb (Albuterol 2.5 Mg/Ipratropium 0.5 Mg)) 1 neb INH Q6H PRN PRN Reason: SOB/WHEEZING Amlodipine Besylate (Norvasc Tab*) 2.5 mg PO DAILY [facility] Last Admin: 10/21/17 09:04 Dose: 2.5 mg Ascorbic Acid (Vitamin C Tab*) 500 mg PO BID [facility] Last Admin: 10/21/17 09:05 Dose: 500 mg Ergocalciferol (Drisdol Cap*) 50,000 unit PO Fr [facility] Ferrous Sulfate (Ferrous Sulfate Tab*) 325 mg PO BID [facility] Last Admin: 10/21/17 09:05 Dose: 325 mg Ceftriaxone Sodium 1 gm/ (Sodium Chloride) 50 mls @ 200 mls/hr IVPB Q24H [facility] Last Admin: 10/21/17 12:19 Dose: 200 mls/hr Melatonin (Melatonin (Nf)) 3 mg PO BEDTIME [facility] PRN Reason: Protocol Last Admin: 10/20/17 21:11 Dose: 3 mg Multi-Ingredient Liniment/Rub (Demarco Bowling*) 1 applic TOPICAL BID [facility] Last Admin: 10/21/17 09:05 Dose: 1 applic Omeprazole (Prilosec Cap*) 40 mg PO BID [facility] Last Admin: 10/21/17 09:05 Dose: 40 mg Sertraline HCl (Zoloft*) 100 mg PO DAILY [facility] Last Admin: 10/21/17 09:05 Dose: 100 mg Torsemide (Demadex*) 40 mg PO DAILY [facility] Last Admin: 10/21/17 09:05 Dose: 40 mg Vital Signs - 8 hr 10/21/17 10/21/17 07:34 08:00 Temperature 97.8 F Pulse Rate 85 Respiratory 18 22 Rate Blood Pressure 125/60 (mmHg) O2 Sat by Pulse 99 Oximetry Oxygen Devices in Use Now: Nasal Cannula Appearance: Alert, sitting up in bed. Neutral affect. Looks comfortable. Eyes: No Scleral Icterus Ears/Nose/Mouth/Throat: Clear Oropharnyx, Mucous Membranes Moist Neck: NL Appearance and Movements; NL JVP, No Thyroid Enlargement, Masses Respiratory: Symmetrical Chest Expansion and Respiratory Effort, Clear to Percussion - Marked rhonchi and/or upper airway sounds all lung [place]. Neurological: NL Sensation, - - Disoriented and/or poor verbal skills. He can say his full name, gave his age as 80, answered "80" to all subsequent questions. Result Diagrams: 10/21/17 04:42 10/20/17 05:32 Additional Lab and Data: Laboratory Results - last 24 hr 10/19/17 10/19/17 10/20/17 17:00 19:36 00:10 WBC RBC Hgb Hct MCV MCH MCHC RDW Plt Count MPV Neut % (Auto) Lymph % (Auto) [place] % (Auto) Eos % (Auto) Baso % (Auto) Absolute Neuts (auto) Absolute Lymphs (auto) Absolute Monos (auto) Absolute Eos (auto) Absolute Basos (auto) Absolute Nucleated RBC Nucleated RBC % Sodium Potassium Chloride Carbon Dioxide Anion Gap BUN Creatinine Est GFR ( Amer) Est GFR (Non-Af Amer) BUN/Creatinine Ratio Glucose POC Glucose (mg/dL) 130 H Calcium Magnesium Troponin I 0.06 H* Triglycerides Cholesterol LDL Cholesterol HDL Cholesterol Urine Color Straw Urine Appearance Clear Urine pH 5.0 Ur Specific [place] 1.008 L Urine Protein Negative Urine Ketones Negative Urine Blood Negative Urine Nitrate Negative Urine Bilirubin Negative Urine Urobilinogen Negative Ur Leukocyte Esterase Negative Urine Glucose Negative 10/20/17 10/20/17 10/20/17 05:32 05:32 07:44 WBC 7.4 RBC 2.74 L Hgb 7.7 L Hct 23 L MCV 84 MCH 28 MCHC 33 RDW 22 H Plt Count 280 MPV 6 L Neut % (Auto) 80.9 Lymph % (Auto) 7.4 L [place] % (Auto) 8.6 Eos % (Auto) 2.3 Baso % (Auto) 0.8 Absolute Neuts (auto) 6.0 Absolute Lymphs (auto) 0.5 L Absolute Monos (auto) 0.6 Absolute Eos (auto) 0.2 Absolute Basos (auto) 0.1 Absolute Nucleated RBC 0 Nucleated RBC % 0 Sodium 139 Potassium 3.7 Chloride 102 Carbon Dioxide 24 Anion Gap 13 H BUN 26 H Creatinine 1.58 H Est GFR ( Amer) 54.1 Est GFR (Non-Af Amer) 42.1 BUN/Creatinine Ratio 16.5 Glucose 88 POC Glucose (mg/dL) 108 H Calcium 8.3 L Magnesium 1.8 L Troponin I 0.06 H* Triglycerides 92 Cholesterol 116 LDL Cholesterol 66 HDL Cholesterol 31.9 Urine Color Urine Appearance Urine pH Ur Specific [place] Urine Protein Urine Ketones Urine Blood Urine Nitrate Urine Bilirubin Urine Urobilinogen Ur Leukocyte Esterase Urine Glucose 10/20/17 10/20/17 12:15 17:12 WBC RBC Hgb Hct MCV MCH MCHC RDW Plt Count MPV Neut % (Auto) Lymph % (Auto) [place] % (Auto) Eos % (Auto) Baso % (Auto) Absolute Neuts (auto) Absolute Lymphs (auto) Absolute Monos (auto) Absolute Eos (auto) Absolute Basos (auto) Absolute Nucleated RBC Nucleated RBC % Sodium Potassium Chloride Carbon Dioxide Anion Gap BUN Creatinine Est GFR ( Amer) Est GFR (Non-Af Amer) BUN/Creatinine Ratio Glucose POC Glucose (mg/dL) 107 H 141 H Calcium Magnesium Troponin I Triglycerides Cholesterol LDL Cholesterol HDL Cholesterol Urine Color Urine Appearance Urine pH Ur Specific [place] Urine Protein Urine Ketones Urine Blood Urine Nitrate Urine Bilirubin Urine Urobilinogen Ur Leukocyte Esterase Urine Glucose Microbiology and Other Data: Microbiology 10/19/17 17:00 Urine Streptococcus pneumoniae Ag Screen - Final Negative S. pneumo Antigen Assess/Plan/Problems-Billing Assessment: 81 yo male PMH Afib off anticoagulation 2/2 chronic blood loss anemia thought 2/ 2 AVM/GIB, previous right MCA CVA, diastolic CHF, p/w right facial droop and found to have subacute left frontal CVA. ECHO with severe pHTN, mod-severe MVR & TVR. Requiring [place] w/ PT. Palliative care consulted. - Patient Problems (1) Cerebrovascular accident (CVA) with involvement of left side of body Current Visit: No Status: Acute Priority: High Onset Date: 08/17/15 Code (s): I63.9 - CEREBRAL INFARCTION, UNSPECIFIED SNOMED Code(s): 476690837 Comment: Second CVA by scan. Poor cognitive and/or language skills. He seems passive which may also reflect his frontal lobe CVA. I spoke with his gd Ruthie [phone]) who feels he has had many TIA's also. Patient was felt to not be a candidate for anticoagulation or ASA in the past and nothing has changed in that regard. (2) CKD (chronic kidney disease) stage 3, GFR 30-59 ml/min Current Visit: Yes Status: Acute Code(s): N18.3 - CHRONIC KIDNEY DISEASE, STAGE 3 (MODERATE) SNOMED Code(s): 582629252 Comment: GFR 42.1 10/20/17. This may depend on his use of diuretics. (3) Pulmonary hypertension Current Visit: Yes Status: Acute Code(s): I27.20 - PULMONARY HYPERTENSION, UNSPECIFIED SNOMED Code(s): 40762308 Comment: This is a major co-morbidity. (4) Atrial fibrillation Current Visit: No Status: Acute Onset Date: 08/02/15 Code(s): I48.91 - UNSPECIFIED ATRIAL FIBRILLATION SNOMED Code(s): 42633056 Comment: chronic. has been off a/c given bleeding. high CHADSVASC2. tele (5) Diabetes Current Visit: No Status: Acute Code(s): E11.9 - TYPE 2 DIABETES MELLITUS WITHOUT COMPLICATIONS SNOMED Code(s): 37030775 Comment: He is diet controlled. Hold off FS glucose checks pending confirmation of family's wishes regarding Hospice care. (6) End of life care Current Visit: Yes Status: Acute Code(s): Z51.5 - ENCOUNTER FOR PALLIATIVE CARE SNOMED Code(s): 417895000 Comment: Ruthie will talk with her gm and they will get back to me about Hospice services and comfort care. Status and Disposition: medicine inpatient.
[2017-10-21] MEDS: guaiFENesin LIQ* 100 MG/5 ML UDC PO SCH ×2 (17:01→22:29)
[2017-10-22 06:48] LABS: ABS Basophils 0 10^3/ul (0-0.2); ABS Eosinophils 0.1 10^3/ul (0-0.6); ABS Lymphocytes 0.5 10^3/ul (1.0-4.8); ABS Monocytes 0.6 10^3/ul (0-0.8); ABS Neutrophils 7.3 10^3/ul (1.5-7.7); ABS Nucleated RBC 0 10^3/ul; Eosinophil % 1.4 % (0-6); Hematocrit 25 % (42-52); Hemoglobin 7.9 g/dl (14.0-18.0); Lymphocyte % 5.8 % (25-47); Mean Corpuscular HGB Conc 32 g/dl (31-36); Mean Corpuscular Hemoglobin 27 pg (27-31); Mean Corpuscular Volume 84 fL (80-94); Mean Platelet Volume 6 um3 (7.4-10.4); Nucleated Red Blood Cells % 0; Platelet Count 248 10^3/ul (150-450); Red Blood Count 2.92 10^6/ul (4.0-5.4); Red Cell Distribution Width 21 % (10.5-15); White Blood Count 8.6 10^3/ul (3.5-10.8)
[2017-10-22] MEDS ORDERED: Ferrous Sulfate TAB* 325 MG PO SCH (09:00)
[2017-10-22] MEDS: Omeprazole CAP* 20 MG PO SCH (09:35)
[2017-10-22] MEDS: Torsemide TAB* 20 MG PO SCH (09:35)
[2017-10-22] MEDS: guaiFENesin LIQ* 100 MG/5 ML UDC PO SCH ×3 (09:36→17:05)
[2017-10-22] MEDS: Ascorbic Acid TAB* 500 MG PO SCH (09:36)
[2017-10-22] MEDS: Analgesic BALM* 114 GM TOPICAL SCH (09:37)
[2017-10-22] MEDS: cefTRIAXone(*) 1 GM in NS 0.9% 50 ML* 50 ML IVPB SCH (12:25)
--- NOTE | 2017-10-22 12:59 | PN ---
NEUROLOGY PROGRESS NOTE: DATE OF FOLLOWUP: 10/21/17 HISTORY: No acute overnight events. His was present at the time of my evaluation today. She reports she feels he has improved slightly as he has spoken some words to her whereas he did not do so yesterday. During my evaluation, he began to wince and seemed to be in pain, but had difficulty expressing where the pain was consistently even when presented with choices. He was eating his lunch at the time of my evaluation as well. HOSPITAL MEDICATIONS: 1. DuoNeb p.r.n. 2. Vitamin C. 3. Ceftriaxone. 4. Vitamin D. 5. Ferrous sulfate. 6. Guaifenesin. 7. Beng[place]. 8. Prilosec. 9. Zoloft. 10. Torsemide. PHYSICAL EXAM: Vital Signs: Temperature 97.8, blood pressure 125/60, heart rate 85, oxygen saturation 99% on 3 L. The patient was sitting upright in his hospital bed, on oxygen by nasal cannula. He appears to be in mild respiratory distress with wet sounding respirations. He often breathes through his mouth. He is in atrial fibrillation. On neurologic examination, he was able to state his name and was able to name a spoon but was not able to name parts of the hand. He is able to follow commands. He has right lower facial weakness and some delayed activation of his right upper extremity, but otherwise, he gives very good resistance with manual testing. The remainder of my exam was truncated secondary to the possibility that he was experiencing chest pain, at which point I went to order an EKG. DIAGNOSTIC STUDIES/LAB DATA: His CBC today is notable for drop in his hematocrit to 22 and hemoglobin of 7 with normal platelet count and white blood cells. His EKG did not show any concerning ST-T wave changes to my eye and showed atrial fibrillation. 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 I discussed with his today that the question in my mind has been raised as to whether the risks and benefits have shifted in terms of starting aspirin in this elderly gentleman. I then discussed with Dr. Gómez, who has also spoken with the patient's granddaughter who works at [employer]. Palliative Care apparently thought he would be appropriate for hospice care and the family is open to that though the granddaughter plans on discussing this further with the patient's . Dr. 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 I would tend to agree. Since it appears that he will be moving towards comfort care, no further neurologic workup will be suggested as this point. If I can be of further assistance during the patient's hospital stay, please let me know. [id number]/[facility] #: [id number] JUDI
--- NOTE | 2017-10-22 15:25 | PN ---
Progress Note - Progress Note Date of Service: 10/22/17 Note: Time spent on discharge 50 minutes.
--- NOTE | 2017-10-22 16:41 | TRS ---
CC: TIMOTHY AyonP * DATE OF ADMISSION: 10/19/2017. DATE OF TRANSFER: 10/22/2017. HISTORY OF PRESENT ILLNESS: This 81-year-old man presented with right facial droop and confusion. The history is detailed in the admission note. MRI showed a moderate sized acute to subacute nonhemorrhagic infarct in the left frontal lobe. His old right posterior parietal lobe infarct was also visualized. The patient had an echocardiogram which showed severe pulmonary hypertension. His chronic kidney disease was stable. His GFR was 42.1 on October 20. His diabetes was adequately controlled on diet alone. He had some problems for about two days with a lot of noisy respirations and rhonchi. He was given intravenous Ceftriaxone. He had a formal speech swallow evaluation which showed he could tolerate thin liquids and normal consistency foods. By the day of discharge, the patient's pulmonary status had markedly improved. There were only very mild scattered rhonchi. On the day of discharge, his O2 saturation was 92 to 93 percent on room air as checked by me. I feel that all of the factors that went into the decision to not anticoagulate and despite his atrial fibrillation still exists and the weight of evidence if anything is more in favor of withholding anticoagulation, so I have not made any change in that regard. The granddaughter, Ruthie, and his have decided they would like hospice care. The patient will be transferred back to [facility] from which he will be discharged home with hospice care when arrangements through their [facility] have been made and adequate arrangements for home health aides have been made as well. FINAL DIAGNOSES: 1. Cerebrovascular accident. 2. Chronic kidney disease. 3. Pulmonary hypertension. 4. Atrial fibrillation. 5. Diabetes. MEDICATIONS ON DISCHARGE: 1. Cefuroxime 500 mg b.i.d. for 6 days. 2. Omeprazole 40 mg b.i.d. 3. Sertraline 50 mg daily. 4. Ascorbic acid 500 mg b.i.d. 5. [place] topical b.i.d. 6. Ferrous Sulfate 325 mg b.i.d. 7. Albuterol Ipratropium one nebulizer twice daily. 8. Vitamin D 50,000 units on Fridays. 9. Acetaminophen 1,000 mg every 8 hours prn. 10. Torsemide 40 mg daily. [id number]/[facility] #: [id number] JUDI
[2017-10-22 17:35] VITALS: BP 111/63
[2017-10-23] MEDS ORDERED: Ergocalciferol CAP* 50000 UNIT PO SCH (12:00)
== END 2017-10-22 18:29 | DRG 64 ==
LOC: ED 09:43 → MEDTELE 10:59
PROVIDERS: ADMIT Internal Medicine; ATTEND Internal Medicine
DX: I63.9 Cerebral infarction, unspecified (principal); J96.91 Respiratory failure, unspecified with hypoxia; E11.22 Type 2 diabetes mellitus with diabetic chronic kidney disease; E11.51 Type 2 diabetes mellitus with diabetic peripheral angiopathy without gangrene; I48.91 Unspecified atrial fibrillation; I08.1 Rheumatic disorders of both mitral and tricuspid valves; R47.01 Aphasia; I13.0 Hypertensive heart and chronic kidney disease with heart failure and stage 1 through stage 4 chronic kidney disease, or unspecified chronic kidney disease; I50.32 Chronic diastolic (congestive) heart failure; I27.20 Pulmonary hypertension, unspecified; K21.9 Gastro-esophageal reflux disease without esophagitis; M19.90 Unspecified osteoarthritis, unspecified site; N18.3 Chronic kidney disease, stage 3 (moderate); R40.2362 Coma scale, best motor response, obeys commands, at arrival to emergency department; R40.2142 Coma scale, eyes open, spontaneous, at arrival to emergency department; R40.2242 Coma scale, best verbal response, confused conversation, at arrival to emergency department; R29.706 NIHSS score 6; Z66 Do not resuscitate; K08.109 Complete loss of teeth, unspecified cause, unspecified class; I65.22 Occlusion and stenosis of left carotid artery; D50.0 Iron deficiency anemia secondary to blood loss (chronic); E78.5 Hyperlipidemia, unspecified; Z51.5 Encounter for palliative care; R29.810 Facial weakness; Z88.8 Allergy status to other drugs, medicaments and biological substances; Z86.73 Personal history of transient ischemic attack (TIA), and cerebral infarction without residual deficits; Z98.42 Cataract extraction status, left eye; Z98.41 Cataract extraction status, right eye; Z82.49 Family history of ischemic heart disease and other diseases of the circulatory system; Z87.891 Personal history of nicotine dependence; Z82.3 Family history of stroke; Z80.42 Family history of malignant neoplasm of prostate; Q27.33 Arteriovenous malformation of digestive system vessel; Z80.3 Family history of malignant neoplasm of breast; Z80.0 Family history of malignant neoplasm of digestive organs; Z80.8 Family history of malignant neoplasm of other organs or systems
CPT/HCPCS: 36415; 70450; 70551; 71045; 80048; 80053; 80061; 81003; 83605; 83735; 83880; 84145; 84484; 85025; 85610; 85730; 86850; 86900; 86901; 87899; 93005; 93306; 93880; 99284; A9270-GY; J0696